=== PATIENT | female | born 1950 | race Two or more races ===

== ENCOUNTER 2024-10-16 13:06 | Outpatient (AMB) | payer MEDICARE, SELFPAY ==
--- NOTE | 2024-10-16 13:07 | A.OFFPC_ITS ---
Vital Signs 10/16/24 13:11 Height 5 ft 2.99 in Weight 150 lb BMI 26.6 BP 133/62 Respiration 14 Pulse 72 Pulse Source Pulse Oximeter Temp 97.6 F Temp Source Temporal Artery Scan Pulse Oximetry (%) 97 Oxygen Delivery Method Room Air Intake Visit Reasons: establish care Policy Issue Clerk Required: No Accompanied by: Self / Same As Patient Allergies acetaminophen (From PERCOCET) Allergy (Unknown, Unverified 10/16/24 13:22) NAUSEA & VOMITING, HALLUCINATE morphine (MORPHINE) Allergy (Unknown, Unverified 10/16/24 13:22) NAUSEA & VOMITING nitroglycerin (NITROGLYCERIN) Allergy (Unknown, Unverified 10/16/24 13:22) VOMITING, vomit oxycodone (From PERCOCET) Allergy (Unknown, Unverified 10/16/24 13:22) NAUSEA & VOMITING, HALLUCINATE Sulfa (Sulfonamide Antibiotics) (SULFA (SULFONAMIDE ANTIBIOTICS)) Allergy (Unknown, Unverified 10/16/24 13:22) RASH sulfa Allergy (Mild, Uncoded 10/16/24 13:22) Unknown Medication List - Last Reconciled 10/16/24 by Bianka Terrazas PA-C aspirin 81 mg PO DAILY buspirone 10 mg PO ONCE carvedilol 3.125 mg PO BID desvenlafaxine succinate ER 50 mg PO DAILY levothyroxine (Synthroid) 50 mcg PO DAILY omeprazole 40 mg PO BID ranolazine ER 500 mg PO BID rosuvastatin 20 mg PO DAILY sertraline 100 mg PO DAILY Tobacco use date assessed: 10/16/24 Fall risk assessment: No Falls in past year Last assessed Fall Risk: 10/16/24 Dental Screening Dental Screen Date: 10/16/24 Did you have a dental visit in the last 12 months?: Yes Did you have a dental problem in the last 6 months where you did not have access to dental care?: No Was dental information given to patient?: Patient has dentist HPI establish care HPI Details The patient is a 74-year-old female presenting for a new patient appointment to establish care and address multiple health concerns, including cardiovascular, dermatological, gastrointestinal, and anxiety issues. The patient has a history of cardiovascular issues, including a heart stent placement in 2011. She reports experiencing intermittent chest pain, which she attributes to her heart condition, and is seeking a referral to a veterinary virus serum inspector. Although denies any active chest pain at this time. Also reports intermittent episodes of palpitations/feeling like her heart is racing and sweating at nighttime. She spoke to her prior primary care in [place] about this and she reported that she believes it was her thyroid therefore she placed her on levothyroxine although patient is still having symptoms. The patient has a history of skin cancer on her face and is seeking a referral to a protection mgr for further evaluation and management. The patient reports gastrointestinal symptoms, including abdominal and esophageal pain, and suspects it might be related to acid reflux. She is seeking a referral to a president/gm production & live experiences for further evaluation and management, including a potential endoscopy and colonoscopy. The patient experiences anxiety, which she manages with medication, including buspirone and desvenlafaxine. She reports that anxiety exacerbates her cardiovascular symptoms, causing her heart to race. The patient has been prescribed levothyroxine for a thyroid disorder, following blood work that indicated low thyroid levels. [facility] Medical History Thyroid disorder Anxiety Intermittent chest pain Skin lesions Abdominal pain Intermittent palpitations Establishing care with new doctor, encounter for Family History Father BP (high blood pressure) Mother BP (high blood pressure) CHF (congestive heart failure) Social History Housing: Apartment Alcohol intake: current Alcohol intake frequency: does not drink Patient Tobacco Use Status: Former Tobacco user service: No Current occupational status: unemployed Cognitive needs: No Hearing needs: Yes (b/l hearing aids) Vision needs: Yes (rx glasses) Questionnaire PHQ-9 Over the last 2 weeks, how often have you been bothered by any of the following problems? 1. Little interest or pleasure in doing things: not at all 2. Feeling down, depressed, or hopeless: not at all 3. Trouble falling or staying asleep, or sleeping too much: not at all 4. Feeling tired or having little energy: not at all 5. Poor appetite or overeating: not at all 6. Feeling bad about yourself - or that you are a failure or have let yourself or your family down: not at all 7. Trouble concentrating on things, such as reading the newspaper or watching television: not at all 8. Moving or speaking so slowly that other people could have noticed. Or the opposite - being so fidgety or restless that you have been moving around a lot more than usual: not at all 9. Thoughts that you would be better off or of hurting yourself in some way: not at all Total score: 0 Depression Screening Interpretation: Negative Depression Screening Done: Yes 94724 - PHQ-9 Billing: Yes Source: Developed by Drs. Ricky Romero, Estrella Jj, Contreras Wang and colleagues, with an educational linh from [employer]. Thrive Questionnaire Date Thrive assessed: 10/16/24 I am a: Patient What is your living situation today?: I have a steady place to live Within the past 12 months, did the food you bought not last and you didn't have the money to get more?: Never true Within the past 12 months, did you worry whether your food would run out before you got money to buy more?: Never true Do you have trouble paying for medicines?: No Do you have trouble getting transportation to medical appointments?: No Do you have trouble paying your heating and electricity bill?: No Do you have trouble taking care of your child, family member or friend?: No Do you have trouble with day-to-day activities such as bathing, preparing meals, shopping, managing finances, etc.?: No Are you currently unemployed and looking for a job?: No Are you interested in more education?: No Please select the resources that you would like help with: None THRIVE Score: 0 AUDIT C Alcohol Use Questionnaire (AUDIT-C) 1. How often do you have a drink containing alcohol?: Never 3. How often do you have six or more drinks on one occasion?: Never Total Score: 0 Score Reviewed/Action Taken: No HERRERA-7 AMB Questionnaire HERRERA-7 Date HERRERA - 7 assessed: 10/16/24 Feeling nervous, anxious, or on edge: 3 = Nearly every day Not being able to stop or control worryin = Nearly every day Worrying too much about different things: 3 = Nearly every day Trouble relaxin = Not at all Being so restless that it is hard to sit still: 2 = More than half the days Becoming easily annoyed or irritable: 0 = Not at all Feeling afraid as if something awful might happen: 2 = More than half the days Total HERRERA-7 score (0-4 normal; 5-9 mild; 10-14 moderate; 15-21 severe): 13 Source: Developed by Drs. Ricky Romero, Estrella Jj, Contreras Wang and colleagues, with an educational linh from [employer]. HERRERA-7 Assessment Billing HERRERA-7 Assessment Tool: HERRERA-7 Assessment 77159 Review of Systems Const Details: - Cardiovascular: Reports chest pain, heart racing. Denies syncope. - Gastrointestinal: Reports abdominal and esophageal pain. Denies nausea or vomiting. - Dermatological: Reports history of skin cancer on face. - Psychiatric: Reports anxiety. Denies depression. Physical exam (Primary Care) Vital Signs: Last Vital Signs Temp 97.6 F 10/16/24 13:11 Pulse 72 10/16/24 13:11 Resp 14 10/16/24 13:11 BP 133/62 10/16/24 13:11 Pulse Ox 97 10/16/24 13:11 Oxygen Delivery Method Room Air 10/16/24 13:11 Care Plan Goal for BP management: <140/90 at Goal BMI result Body Mass Index 26.6 BMI Assessment/Plan discussion: High BMI High, discussed plan: lifestyle, weight reduction, dietary, physical activity and alcohol moderation Tobacco/Smoking Status: Tobacco use Status Tobacco use date assessed 10/16/24 10/16/24 13:11 Patient Tobacco Use Status Former Tobacco user 10/16/24 13:20 PHQ-9: PHQ-9 Score PHQ-9: Total score 0 10/16/24 13:20 Depression Screening Interpretation: Negative Thrive Assessment: Date of Thrive Assessment Date Thrive assessed 10/16/24 10/16/24 13:11 Const Other: Appearance: Alert. Oriented X3. No acute distress. Head: Normal external exam. Normocephalic. Atraumatic. Eyes: Pupils are equal, round, and reactive to light. Extraocular movements intact. Conjunctiva and sclera normal. Eyelids normal. Throat: Pharynx normal. Uvula midline. Moist mucous membranes. Neck: Normal inspection. Neck supple. Full range of motion. Cardiovascular: Normal heart rate and rhythm. Heart sound normal. No murmurs noted. Pulses normal throughout. Respiratory: No respiratory distress. Painless inspiration. Breath sounds normal. No wheezes/rales/rhonchi noted. Chest nontender. No accessory muscle usage noted or decreased air movement noted. Abdomen: Soft and nontender. Back: Full range of motion noted. Skin: Skin warm and dry. Normal skin color. Normal skin turgor. No rashes/lacerations noted. History of skin cancer on the face. Has scattered birthmark/nevi in multiple locations of the body. Extremities: No lower extremity edema. Extremities exhibit normal range of motion. Neuro: Oriented X 3. No motor deficit. No sensory deficit. Reflexes normal. Coding Level of Care Code New Pt Level 5 (85112) Complex EM visit Add On G2211 Diagnoses Establishing care with new doctor, encounter for Z76.89 Intermittent chest pain R07.9 Intermittent palpitations R00.2 Skin lesions L98.9 Abdominal pain R10.9 Anxiety F41.9 Thyroid disorder E07.9 Additional Codes PHQ-9 - 80809 - PHQ-9 Billing: Yes ([id number]) HERRERA-7 Assessment Billing - HERREAR-7 Assessment Tool: HERRERA-7 Assessment 45449 ([id number]) Time Spent (min) 60 Assessment & Plan Assessment & Plan (1) Establishing care with new doctor, encounter for: Code(s): Z76.89 - Persons encountering health services in other specified circumstances Category: Medical (2) Intermittent chest pain: Code(s): R07.9 - Chest pain, unspecified Category: Medical Plan: The patient will be referred to a veterinary virus serum inspector for further evaluation of her cardiovascular condition, including her history of heart stent placement and current intermittent chest pain. Patient is instructed to go to the emergency department if she continues to have chest pain even if it is intermittent I explained this to her, or any other symptoms related to this. Will also order basic labs, chest x-ray, EKG, Holter monitor, stress test and echocardiogram. Condition is stable at this time and patient denies any active chest pain at this time will continue to monitor. (3) Intermittent palpitations: Code(s): R00.2 - Palpitations Category: Medical Plan: The patient will be referred to a veterinary virus serum inspector for further evaluation of her cardiovascular condition, including her history of heart stent placement and current intermittent chest pain. Patient is instructed to go to the emergency department if she continues to have chest pain even if it is intermittent I explained this to her, or any other symptoms related to this. Will also order basic labs, chest x-ray, EKG, Holter monitor, stress test and echocardiogram. Condition is stable at this time and patient denies any active chest pain at this time will continue to monitor. (4) Skin lesions: Code(s): L98.9 - Disorder of the skin and subcutaneous tissue, unspecified Category: Medical Plan: The patient will be referred to a protection mgr for evaluation and management of her history of skin cancer on the face. (5) Abdominal pain: Code(s): R10.9 - Unspecified abdominal pain Category: Medical Plan: Patient reports intermittent abdominal pain. Requesting referral to GI. Referral to GI placed at this time. Patient instructed to go to the ER if she develops persistent or worsening abdominal pain or any other symptoms related to this. Patient understands and agrees with this plan. (6) Anxiety: Code(s): F41.9 - Anxiety disorder, unspecified Category: Medical Plan: The patient will continue her current medication regimen for anxiety, including buspirone and desvenlafaxine, and monitor for any exacerbation of symptoms. Condition is chronic and stable will continue to monitor. (7) Thyroid disorder: Code(s): E07.9 - Disorder of thyroid, unspecified Category: Medical Plan: The patient will continue on levothyroxine for her thyroid disorder, with follow-up blood work to monitor thyroid levels. Plan Plan Patient was informed and verbally consented to the use of an ambient scribe for clinic note documentation during this visit. 1. Cardiovascular Condition The patient will be referred to a veterinary virus serum inspector for further evaluation of her cardiovascular condition, including her history of heart stent placement and current chest pain. 2. Dermatological Condition The patient will be referred to a protection mgr for evaluation and management of her history of skin cancer on the face. 3. Gastrointestinal Symptoms The patient will be referred to a president/gm production & live experiences for further evaluation of her abdominal and esophageal pain, with consideration for endoscopy and colonoscopy. 4. Anxiety The patient will continue her current medication regimen for anxiety, including buspirone and desvenlafaxine, and monitor for any exacerbation of symptoms. 5. Thyroid Disorder The patient will continue on levothyroxine for her thyroid disorder, with follow-up blood work to monitor thyroid levels. I discussed with the patient the need for referrals to specialists for her cardiovascular, dermatological, and gastrointestinal concerns. We talked about the importance of managing her anxiety and thyroid disorder with her current medications. I advised her on the potential need for further diagnostic evaluations, including endoscopy and colonoscopy, and emphasized the importance of follow-up care. I spent approximately 60 minutes on this encounter including history, physical, coordination of care, counseling, referrals, and documenting. Orders: Orders Hemoglobin A1c Today Z00.00 - Encounter for general adult medical examination without abnormal findings Liver Panel Today Z.00 - Encounter for general adult medical examination without abnormal findings Magnesium Today Z.00 - Encounter for general adult medical examination without abnormal findings Vitamin B12 and Folate Today Z.00 - Encounter for general adult medical examination without abnormal findings TSH reflex Free T4 Today Z00.00 - Encounter for general adult medical examination without abnormal findings ECG 12 lead EKG Today R00.2 - Palpitations CA echo transthoracic complete Today R00.2 - Palpitations, R07.9 - Chest pain, unspecified CA stress test Today R00.2 - Palpitations, R07.9 - Chest pain, unspecified ECG 3 day holter monitor Today R00.2 - Palpitations, R07.9 - Chest pain, unspecified C Reactive Protein Today Z00.00 - Encounter for general adult medical examination without abnormal findings Complete Blood Count Auto Diff Today Z00.00 - Encounter for general adult medical examination without abnormal findings Vitamin D 25-OH Total Today Z00.00 - Encounter for general adult medical examination without abnormal findings Comprehensive Met. Panel Today Z00.00 - Encounter for general adult medical examination without abnormal findings NM cardiolite stress test Today R00.2 - Palpitations, R07.9 - Chest pain, unspecified XR chest 2V Today R00.2 - Palpitations, R07.9 - Chest pain, unspecified Referrals Gastroenterology Referral R10.9 - Unspecified abdominal pain Dermatology Referral L98.9 - Disorder of the skin and subcutaneous tissue, unspecified Patient Instructions: - Follow up with referred specialists for cardiovascular, dermatological, and gastrointestinal evaluations. - Continue current medications for anxiety and thyroid disorder as prescribed. - Monitor for any new or worsening symptoms and report them to the healthcare provider.
--- OUTSIDE RECORDS SUMMARY | 2024-10-16 13:10 | XMS_ITS | Patient Health Record ---
Author Organization [facility] - [address] Address [address] [place] [address] Care Team Providers Care Auditing Manager Name Role Phone Higinio CUMMINGS, Dr. Torres Primary Care Provider VIC Real Unavailable [phone] Allergies Allergen (clinical drug ingredient) Drug/Non Drug Allergy documented on EMR Reaction Allergy Type Onset Date Status Substance with sulfonamide structure and antibacterial mechanism of action (substance) Sulfa (uncoded) Rash Allergy Active nitroglycerin nitroglycerin N & V Drug Allergy Active acetaminophen / oxycodone Percocet N & V Drug Allergy Active morphine Morphine N & V Drug Allergy Active Reason For Referral No Information Medications Medication SIG (Take, Route, Frequency, Duration) Notes Start Date End Date Status Rosuvastatin Calcium 10 MG 1 tablet Oral ly Once a day Active Pantoprazole Sodium 40 MG 1 tablet Orall y Once a day for 30 day(s) Unknown Aspirin 81 MG 1 tablet Orally Once a day Active Metoprolol Succinate ER 25 MG 1 tablet Orally Once a day/additional tablet if needed for palpitations - HR >110 Active Escitalopram Oxalate 20 MG 1 tablet Oral ly Once a day for 30 day(s) Unknown Social History Tobacco Use: Social History Observation Description Date Details (start date - stop date) Former Smoker NA - NA Tobacco Use/Smoking Question Answer Notes Are you a former smoker How long has it been since you last smoked? > 10 years Alcohol Screen (Audit-C) Question Answer Notes Did you have a drink containing alcohol in the p ast year? No Points 0 Interpretation Negative Problems Problem Type SNOMED Code ICD Code Onset Dates Problem Status W/U Status Risk Notes Problem Supraventricular tachycardia (I47.1) Active confirmed Problem Electrocardiogram abnormal (709946644) Abnormal EKG (R94.31) Active confirmed Problem Essential hypertension (72129499) Essential (primary) hypertension (I10) Active confirmed [facility] [place]- Problem Palpitations (21055411) Palpitations (R00.2) Active confirmed [facility] 7667- Problem 11614729 Paroxysmal supraventricular tachycardia (I47.1) Active confirmed [facility] 7667- Problem 32394843 Hyperlipidemia (E78.5) Active confirmed [facility] 7667- Problem 00177625 Paroxysmal ventricular tachycardia (I47.2) Active confirmed [facility] 7667- Problem 302649635 Atherosclerosis of coronary artery (I25.10) Active confirmed [facility] 7667- Problem Tachycardia (0546634) Tachycardia, unspecified (R00.0) Problem resolved confirmed [facility] 7667- Problem Chest pain (06869826) Chest Pain Unspecified (786.50) Problem resolved confirmed [facility] 7667- Plan Of Treatment No Information Insurance Providers Payer Name Payer Address Payer Phone Subscriber Number Group Number Insured Name Patient Relationship to Insured Coverage Start Date Coverage End Date [facility] [address] [address] [place], [place] [phone] [id number] Dora Barraza Self - patient is the insured Medical (General) History Medical History History ICD Code kidney stones Rt. Wrist sinus tachycardia chest pain angina (unstable) anxiety CAD GERD hyperlipidemia childhood illnesses of mumps, measles an d chickenpox palpitations hypertension-benign Surgical History Surgery Date(Month/Year) cholecystectomy Successful PTCA of the Prox. LAD IVET red ucing stenosis from 80%-0 08/16/11 Hospitalization History Reason Date(Month/Year) [facility] - angina 05/14/20
--- OUTSIDE RECORDS SUMMARY | 2024-10-16 13:10 | XMS_ITS | Patient Health Record ---
Author Organization [facility] Address [address] [place] [id number] Care Team Providers Care Mental Health Aide Name Role Phone Pako (RETIRED) Ricky MONTALVO Primary Care Provid er Unavailable David Agarwal Jr Unavailable Allergies Allergen (clinical drug ingredient) Drug/Non Drug Allergy documented on EMR Reaction Allergy Type Onset Date Status Sulfa Unknown Drug Allergy Active acetaminophen / oxycodone percocet (uncoded) Unknown Allergy Active morphine morphine (uncoded) Unknown Allergy A ctive Reason For Referral No Information Medications Medication SIG (Take, Route, Frequency, Duration) Notes Start Date End Date Status Ondansetron HCl 4 MG 1 tablet as needed Orally every 4 hrs 01/17/2018 Active Dicyclomine HCl 20 MG 1 tablet Orally 2- 4 times a day Active Pantoprazole Sodium 40 MG 1 tablet Orall y Once a day for 30 days Active Pantoprazole Sodium 40 MG 1 tablet Orall y Once a day for 30 day(s) 02/19/2018 Active Carafate 1 GM/10ML 10 ml Orally 2-4 ayo es daily for 30 day(s) 01/11/2018 Active Sertraline HCl 50 MG 1 tablet Orally Onc e a day Active Ativan 0.5 MG Orally Active Pantoprazole Sodium 40 MG 1 tablet Orall y Twice a day for 30 day(s) 01/11/2017 Not-Taking Dicyclomine HCl Acti ve Aspirin 81 MG 1 tablet Orally Once a day Active Rosuvastatin Calcium Active Cimetidine 400 MG 1 tablet at bedtime Orally Once a day for 30 Active Metoprolol Tartrate 50 MG 1 tablet with food Orally Twice a day Active Pantoprazole Sodium 40 MG 1 tablet Orall y Once a day Not-Taking Immunizations Vaccine Route Administration Date Status Comme nts Influenza Unknown 01/11/2017 Administered Social History Tobacco Use: Social History Observation Description Date Details (start date - stop date) Former Smoker NA - NA Tobacco Use/Smoking Question Answer Notes Patient is a former smoker How long has it been since you last smoked? > 10 years Alcohol Screen Question Answer Notes Did you have a drink containing alcohol in the p ast year? No Points 0 Interpretation Negative Section Notes: former smoker over 31 years former smoker over 31 years Problems Problem Type SNOMED Code ICD Code Onset Dates Problem Status W/U Status Risk Notes Problem 58406315 Epigastric pain (R10.13) Active confirmed Problem 46640248 Weight loss (R63.4) Active confirmed Problem 47377360 Diarrhea, unspecified type (R19.7) Active confirmed Plan Of Treatment Pending Test Test Name Order Date LIVER PROFILE 01/14/2018 LIPASE 01/14/2018 CBC w/o DIFF 01/14/2018 STOOL WBC 02/15/2017 OVA & PARASITES (O&P) 02/15/2017 CULTURE, STOOL 02/15/2017 XR GI SERIES 01/14/2018 Future Test Test Name Order Date UPPER GI ENDOSCOPY 01/11/2017 Insurance Providers Payer Name Payer Address Payer Phone Subscriber Number Group Number Insured Name Patient Relationship to Insured Coverage Start Date Coverage End Date [facility] [address] [place], [place] [id number] NEO WANG Self - patient is the insured Medical (General) History Medical History History ICD Code kidney stones right and left removed -19 80's coronary artery disease and stent placem ent 2013 colonoscopy within 10 years in [place], records to be obtained. Surgical History Surgery Date(Month/Year) cholecystectomy appendectomy for carcinoid
[2024-10-16 13:11] VITALS: BP 133/62; PULSE 72; RESP 14; TEMP 36.4; O2SAT 97; BMI 26.6
--- OUTSIDE RECORDS SUMMARY | 2024-10-16 13:11 | XMS_ITS | Data Portability ---
Author Organization [facility] Address [address] [place] [address] Assessment No assessment recorded. Plan of Treatment Reminders Order Date Submit Date Provider Last Modified By Organization Details Last Modified Time Details Appointments None recorded. Lab PTH (parathyroi d hormone), intact, serum or plasma 2024 025 ANGELA [facility], [address] [place], [address], 5 13:37:17 Mycobacteri um tuberculosi s stimulated gamma interferon, qual, blood 2024 025 ANGELA [facility], [address] [place], [address], 5 03:09:40 thyroid peroxidase (tpo) Ab, serum 2024 025 ANGELA [facility], [address] [place], [address], 5 03:09:45 thyroglobul in Ab, serum 2024 025 ANGELA [facility], [address] [place], [address], 5 03:09:44 CMP, serum or plasma 2023 025 ANGELA [facility], [address] [place], [address], 5 03:06:38 alkaline phosphatase isoenzymes, serum or plasma 2023 025 ANGELA [facility], [address] [place] [facility] [place], [address], 5 03:06:40 gamma-gluta myl transferase (ggt), serum 2023 025 ANGELA [facility], [address] [place], [address], 5 03:06:41 HbA1c (hemoglobin A1c), blood 2023 025 ANGELA [facility], [address] [place], [address], 5 03:06:41 urinalysis complete, reflex culture 2024 025 ANGELA [facility], [address] [place], [address], 5 03:06:38 lipid panel, serum 2023 025 ANGELA [facility], [address] [facility] [place], [address], 5 03:06:39 TSH + free T4, serum 2023 025 ANGELA [facility], [address] [place] [facility] [place], [address], 5 03:06:37 amylase + lipase, serum 2023 024 ANGELA [facility], [address] [place] [facility] [place], [address], 4 08:14:25 C reactive protein, QN, serum or plasma 2023 024 ANGELA [facility], [address] [place] [facility] [place], [address], 4 08:14:27 CMP, serum or plasma 2023 024 ANGELA [facility], [address] [place], [address], 4 08:14:24 CBC w/ auto diff 2023 024 ANGELA [facility], [address] [facility], [address], 4 08:14:23 ESR (erythrocyt e sedimentati on rate), blood 2023 024 ANGELA [facility], [address] [facility], [address], 4 08:14:26 HbA1c (hemoglobin A1c), blood 2022 024 ANGELA [facility], [address] [place] [facility] [place], [address], 4 03:06:53 microalbumi n/creatinin e, mass ratio, urine 2022 024 ANGELA [facility], [address] [place] [facility] [place], [address], 4 03:06:51 CBC w/ auto diff 2022 024 ANGELA [facility], [address] [place] [facility] [place], [address], 4 03:06:49 CMP, serum or plasma 2022 024 ANGELA [facility], [address] [place] [facility] [place], [address], 4 03:06:50 lipid panel, serum 2022 024 ANGELA [facility], [address] [place] [facility] [place], [address], 4 03:06:51 vitamin B12 + folate, serum or blood 2022 024 ANGELA [facility], [address] [place], [address], 03:06:52 Referral None recorded. Procedures None recorded. Surgeries None recorded. Imaging XR, abdomen - CPT: 49936; 73yo WF w/ upper/lower abdominal pain and diarrhea x10 days. 2023 024 [facility], [address] [place], [address], 17:03:35 Medication Orders levothyroxi ne 50 mcg tablet 2024 [facility] #[id number], [address] [place], [place], [id number], 13:59:29 diphenoxyla te-atropine 2.5 mg-0.025 mg tablet 2023 025 [facility] #38130, [address] [place], [place], [id number], 13:57:00 sucralfate 1 gram tablet 2023 025 [facility] #20948, [address] [place], [place], [id number], 13:57:29 omeprazole 40 mg capsule,del ayed release 2023 [facility] [address] [place], [place], [id number], 16:38:31 sertraline 100 mg tablet 2023 024 [facility] #28375, [address] [place], [place], [id number], 16:11:45 desvenlafax ine ER 50 mg tablet,exte nded release 24 hr 2023 [facility] #39858, [address], [id number], 4 16:11:46 ranolazine ER 500 mg tablet,exte nded release,12 hr 2023 024 [facility] #02034, [address] [place], [id number], 4 16:11:45 rosuvastati n 20 mg tablet 2023 [facility] #25536, [address] [place], [place], [id number], 4 16:11:44 buspirone 5 mg tablet 2023 [facility] #25975, [address] [place], [place], [id number], 4 16:11:44 Patient TargetsNo targets recorded. Patient Instructions Encounter Date Encounter Id Patient Instructions Last Modified By Organization Details Last Modified Time 04/01/2024 [id number] We discussed the following important areas of your health at today's visit: 1. Any concerns about balance and falls. 2. Any concerns about bladder control including leaking of urine. 3. Any concerns about getting adequate exercise and physical activity. Supportive programs and services are available to help you develop and maintain healthy habits in these areas. Please visit [email or web address] for a listing of available resources. If you have any further questions or concerns regarding the above areas of your health, please discuss at your next primary care visit or, for more urgent concerns, call us at [address] [place] [address] ([phone]) to schedule an appointment. [email or web address] Not available 03/27/2024 09:36:14 04/11/2024 [id number] We discussed the following important areas of your health at today's visit: 1. Any concerns about balance and falls. 2. Any concerns about bladder control including leaking of urine. 3. Any concerns about getting adequate exercise and physical activity. Supportive programs and services are available to help you develop and maintain healthy habits in these areas. Please visit [email or web address] for a listing of available resources. If you have any further questions or concerns regarding the above areas of your health, please discuss at your next primary care visit or, for more urgent concerns, call us at [address] [place] [address] ([phone]) to schedule an appointment. Not available 04/10/2024 20:01:26 07/17/2024 [id number] We discussed the following important areas of your health at today's visit: 1. Any concerns about balance and falls. 2. Any concerns about bladder control including leaking of urine. 3. Any concerns about getting adequate exercise and physical activity. Supportive programs and services are available to help you develop and maintain healthy habits in these areas. Please visit [email or web address] for a listing of available resources. If you have any further questions or concerns regarding the above areas of your health, please discuss at your next primary care visit or, for more urgent concerns, call us at [address] [place] [address] ([phone]) to schedule an appointment. [email or web address] Not available 07/04/2024 12:15:47 Reason for Referral None Reported. Results Created Date Observation Date Name Description Value Unit Range Abnormal Flag Note LastModifiedBy Organization Detail LastModifiedTime 03/12/2003/12/2024 rapid SARS CoV + SARS CoV 2 Ag, QL IA, respi rator y speci men rapid SARS CoV 2 Ag, QL IA, respiratory specimen negati ve Not Available [facility] [address] [place], [address], 03/12/2024 11:52:40 03/12/2003/12/2024 rapid flu (A+B) Flu negati ve Not Available [facility] [address] [place], [address], 03/12/2024 11:52:39 03/26/20 24 03/26/2024 CBC WITH DIFFE RENTI AL/PL ATELE T WBC 7.1 x10e3 /uL 3.4-10 .8 normal Not Available [facility] ([facility]) [address] [place], [address], 03/28/2024 03:06:49 03/26/20 24 03/26/2024 CBC WITH DIFFE RENTI AL/PL ATELE T RBC 4.58 x10e6 /uL 3.77-5 .28 normal Not Available [facility] ([facility]) [address] [place], [address], 03/28/2024 03:06:49 03/26/20 24 03/26/2024 CBC WITH DIFFE RENTI AL/PL ATELE T hemoglobin 12.8 g/dL 11.1-1 5.9 normal Not Available [facility] ([facility]) [address] [place], [address], 03/28/2024 03:06:49 03/26/20 24 03/26/2024 CBC WITH DIFFE RENTI AL/PL ATELE T hematocrit 40.3 % 34.0-4 6.6 normal Not Available [facility] ([facility]) [address] [place], [address], 03/28/2024 03:06:49 03/26/20 24 03/26/2024 CBC WITH DIFFE RENTI AL/PL ATELE T MCV 88 fL 79-97 normal Not Available [facility] ([facility]) [address] [place], [address], 03/28/2024 03:06:49 03/26/20 24 03/26/2024 CBC WITH DIFFE RENTI AL/PL ATELE T MCH 27.9 pg 26.6-3 3.0 normal Not Available [facility] ([facility]) [address] [place], [address], 03/28/2024 03:06:49 03/26/20 24 03/26/2024 CBC WITH DIFFE RENTI AL/PL ATELE T MCHC 31.8 g/dL 31.5-3 5.7 normal Not Available [facility] ([facility]) [address] [facility], [place], [address], 03/28/2024 03:06:49 03/26/20 24 03/26/2024 CBC WITH DIFFE RENTI AL/PL ATELE T RDW 12.9 % 11.7-1 5.4 Not Available [facility] ([facility]) [address] [facility], [place], [address], 03/28/2024 03:06:49 03/26/20 24 03/26/2024 CBC WITH DIFFE RENTI AL/PL ATELE T platelets 251 x10e3 /uL 150-45 0 normal Not Available [facility] ([facility]) [address] [facility], [place], [address], 03/28/2024 03:06:49 03/26/20 24 03/26/2024 CBC WITH DIFFE RENTI AL/PL ATELE T neutrophils 57 % not estab. normal Not Available [facility] ([facility]) [address] [facility], [place], [address], 03/28/2024 03:06:49 03/26/20 24 03/26/2024 CBC WITH DIFFE RENTI AL/PL ATELE T lymphs 24 % not estab. normal Not Available [facility] ([facility]) [address] [facility], [place], [address], 03/28/2024 03:06:49 03/26/20 24 03/26/2024 CBC WITH DIFFE RENTI AL/PL ATELE T monocytes 9 % not estab. normal Not Available [facility] ([facility]) [address] [place] [address], [place], [address], 03/28/2024 03:06:49 03/26/20 24 03/26/2024 CBC WITH DIFFE RENTI AL/PL ATELE T eos 9 % not estab. normal Not Available [facility] ([facility]) [address] [facility], [place], [address], 03/28/2024 03:06:49 03/26/20 24 03/26/2024 CBC WITH DIFFE RENTI AL/PL ATELE T basos 1 % not estab. normal Not Available [facility] ([facility]) [address] [facility], [place], [address], 03/28/2024 03:06:49 03/26/20 24 03/26/2024 CBC WITH DIFFE RENTI AL/PL ATELE T immature cells TIP STRETCHER Not Available [facility] ([facility]) [address] [place], [address], 03/28/2024 03:06:49 03/26/20 24 03/26/2024 CBC WITH DIFFE RENTI AL/PL ATELE T neutrophils (absolute) 4.0 x10e3 /uL 1.4-7. 0 normal Not Available [facility] ([facility]) [address] [place], [address], 03/28/2024 03:06:49 03/26/20 24 03/26/2024 CBC WITH DIFFE RENTI AL/PL ATELE T lymphs (absolute) 1.7 x10e3 /uL 0.7-3. 1 normal Not Available [facility] ([facility]) [address] [place], [address], 03/28/2024 03:06:49 03/26/20 24 03/26/2024 CBC WITH DIFFE RENTI AL/PL ATELE T monocytes(ab solute) 0.6 x10e3 /uL 0.1-0. 9 normal Not Available [facility] ([facility]) [address] [place], [address], 03/28/2024 03:06:49 03/26/20 24 03/26/2024 CBC WITH DIFFE RENTI AL/PL ATELE T eos (absolute) 0.6 x10e3 /uL 0.0-0. 4 above high normal Not Available [facility] ([facility]) [address] [facility], [place], [address], 03/28/2024 03:06:49 03/26/20 24 03/26/2024 CBC WITH DIFFE RENTI AL/PL ATELE T baso (absolute) 0.1 x10e3 /uL 0.0-0. 2 normal Not Available [facility] ([facility]) [address] [facility], [place], [address], 03/28/2024 03:06:49 03/26/20 24 03/26/2024 CBC WITH DIFFE RENTI AL/PL ATELE T immature granulocytes 0 % not estab. Not Available [facility] ([facility]) [address] [facility], [place], [address], 03/28/2024 03:06:49 03/26/20 24 03/26/2024 CBC WITH DIFFE RENTI AL/PL ATELE T immature grans (abs) 0.0 x10e3 /uL 0.0-0. 1 Not Available [facility] ([facility]) [address] [place], [address], 03/28/2024 03:06:49 03/26/20 24 03/26/2024 CBC WITH DIFFE RENTI AL/PL ATELE T NRBC TIP STRETCHER Not Available [facility] ([facility]) [address] [place], [address], 03/28/2024 03:06:49 03/26/20 24 03/26/2024 CBC WITH DIFFE RENTI AL/PL ATELE T hematology comments: TIP STRETCHER Not Available [facility] ([facility]) [address] [place], [address], 03/28/2024 03:06:49 03/26/20 24 03/27/2024 COMP. METAB OLIC PANEL (14) glucose 96 mg/dL 70-99 normal Not Available [facility] ([facility]) [address] [facility] [place], [address], 03/28/2024 03:06:50 03/26/20 24 03/27/2024 COMP. METAB OLIC PANEL (14) BUN 13 mg/dL 8-27 normal Not Available [facility] ([facility]) [address] [facility] [place], [address], 03/28/2024 03:06:50 03/26/20 24 03/27/2024 COMP. METAB OLIC PANEL (14) creatinine 0.88 mg/dL 0.57-1 .00 normal Not Available [facility] ([facility]) [address] [facility] [place], [address], 03/28/2024 03:06:50 03/26/20 24 03/27/2024 COMP. METAB OLIC PANEL (14) eGFR 70 mL/mi n/1.7 3 >59 normal Not Available [facility] ([facility]) [address] [facility] [place], [address], 03/28/2024 03:06:50 03/26/20 24 03/27/2024 COMP. METAB OLIC PANEL (14) BUN/creatini ne ratio 15 12-28 normal Not Available [facility] ([facility]) [address] [place], [address], 03/28/2024 03:06:50 03/26/20 24 03/27/2024 COMP. METAB OLIC PANEL (14) sodium 142 mmol/ L 134-14 4 normal Not Available [facility] ([facility]) [address] [facility] [place], [address], 03/28/2024 03:06:50 03/26/20 24 03/27/2024 COMP. METAB OLIC PANEL (14) potassium 4.1 mmol/ L 3.5-5. 2 normal Not Available [facility] ([facility]) [address] [place], [address], 03/28/2024 03:06:50 03/26/20 24 03/27/2024 COMP. METAB OLIC PANEL (14) chloride 105 mmol/ L 96-106 normal Not Available [facility] ([facility]) [address] [place], [address], 03/28/2024 03:06:50 03/26/20 24 03/27/2024 COMP. METAB OLIC PANEL (14) carbon dioxide, total 22 mmol/ L 20-29 normal Not Available [facility] ([facility]) [address] [place], [address], 03/28/2024 03:06:50 03/26/20 24 03/27/2024 COMP. METAB OLIC PANEL (14) calcium 9.3 mg/dL 8.7-10 .3 normal Not Available [facility] ([facility]) [address] [place], [address], 03/28/2024 03:06:50 03/26/20 24 03/27/2024 COMP. METAB OLIC PANEL (14) protein, total 6.6 g/dL 6.0-8. 5 normal Not Available [facility] ([facility]) [address] [place], [address], 03/28/2024 03:06:50 03/26/20 24 03/27/2024 COMP. METAB OLIC PANEL (14) albumin 4.6 g/dL 3.8-4. 8 normal Not Available [facility] ([facility]) [address] [place], [address], 03/28/2024 03:06:50 03/26/20 24 03/27/2024 COMP. METAB OLIC PANEL (14) globulin, total 2.0 g/dL 1.5-4. 5 Not Available [facility] ([facility]) [address] [place], [address], 03/28/2024 03:06:50 03/26/20 24 03/27/2024 COMP. METAB OLIC PANEL (14) bilirubin, total 0.6 mg/dL 0.0-1. 2 normal Not Available [facility] ([facility]) [address] [facility], [place], [address], 03/28/2024 03:06:50 03/26/20 24 03/27/2024 COMP. METAB OLIC PANEL (14) alkaline phosphatase 144 IU/L 44-121 above high normal Not Available [facility] ([facility]) [address] [facility] [place], [address], 03/28/2024 03:06:50 03/26/20 24 03/27/2024 COMP. METAB OLIC PANEL (14) AST (SGOT) 20 IU/L 0-40 normal Not Available [facility] ([facility]) [address] [place], [address], 03/28/2024 03:06:50 03/26/20 24 03/27/2024 COMP. METAB OLIC PANEL (14) ALT (SGPT) 18 IU/L 0-32 normal Not Available [facility] ([facility]) [address] [facility], [place], [address], 03/28/2024 03:06:50 03/26/20 24 03/27/2024 LIPID PANEL cholesterol, total 176 mg/dL 100-19 9 normal Not Available [facility] ([facility]) [address] [place], [address], 03/28/2024 03:06:51 03/26/20 24 03/27/2024 LIPID PANEL triglyceride s 113 mg/dL 0-149 normal Not Available [facility] ([facility]) [address] [place], [address], 03/28/2024 03:06:51 03/26/20 24 03/27/2024 LIPID PANEL HDL cholesterol 61 mg/dL >39 normal Not Available [facility] ([facility]) [address] [facility], [place], [address], 03/28/2024 03:06:51 03/26/20 24 03/27/2024 LIPID PANEL VLDL cholesterol tess 20 mg/dL 5-40 Not Available [facility] ([facility]) [address] [facility], [place], [address], 03/28/2024 03:06:51 03/26/20 24 03/27/2024 LIPID PANEL LDL chol calc ([facility]) 95 mg/dL 0-99 Not Available [facility]) [address] [facility], [place], [address], 03/28/2024 03:06:51 03/26/20 24 03/27/2024 LIPID PANEL LDL calc comment: TIP STRETCHER Not Available [facility] ([facility]) [address] [facility], [place], [address], 03/28/2024 03:06:51 03/26/20 24 03/27/2024 ALBUM IN/CR EAT RATIO , RANDO M UR creatinine, urine 92.1 mg/dL not estab. normal Not Available [facility] ([facility]) [address] [facility], [place], [address], 03/28/2024 03:06:51 03/26/20 24 03/27/2024 ALBUM IN/CR EAT RATIO , RANDO M UR albumin, urine 10.5 ug/mL not estab. Not Available [facility] ([facility]) [address] [place], [address], 03/28/2024 03:06:51 03/26/20 24 03/27/2024 ALBUM IN/CR EAT RATIO , RANDO M UR alb/creat ratio 11 mg/g_ creat 0-29 Avril l: 0 - 29 Moder ately incre ased: 30 - 300 Sever lauren incre ased: >300 Not Available [facility] ([facility]) [address] [facility] [place], [address], 03/28/2024 03:06:51 03/26/20 24 03/27/2024 VITAM IN B12 AND FOLAT E vitamin B12 429 pg/mL 232-12 45 normal Not Available [facility] ([facility]) [address] [facility] [place], [address], 03/28/2024 03:06:52 03/26/20 24 03/27/2024 VITAM IN B12 AND FOLAT E folate (folic acid), serum >20.0 NG/mL >3.0 A serum folat e jil ntrat ion of less than 3.1 ng/mL is consi dered to repre sent clini tess defic iency . Not Available [facility] ([facility]) [address] [place], [address], 03/28/2024 03:06:52 03/26/20 24 03/27/2024 HEMOG LOBIN A1C hemoglobin A1C 5.8 % 4.8-5. 6 above high normal Predi abete s: 5.7 - 6.4 Diabe joby: >6.4 Glyce alberto contr ol for adult s with diabe joby: <7.0 Not Available [facility] ([facility]) [address] [place], [address], 03/28/2024 03:06:53 03/26/20 24 03/28/2024 ALK PHOS ISOEN ZYME alkaline phosphatase 145 IU/L 44-121 above high normal Not Available [facility] ([facility]) [address] [place], [address], 04/09/2024 03:06:31 03/26/20 24 04/08/2024 ALK PHOS ISOEN ZYME liver fraction: 42 % 18-85 Not Available [facility] ([facility]) [address] [place], [address], 04/09/2024 03:06:31 03/26/20 24 04/08/2024 ALK PHOS ISOEN ZYME bone fraction: 38 % 14-68 Not Available [facility] ([facility]) [address] [facility], [place], [address], 04/09/2024 03:06:31 03/26/20 24 04/08/2024 ALK PHOS ISOEN ZYME intestinal frac.: 20 % 0-18 above high normal Intes tinal alkal ine phosp hatas e is seen avril lly in the serum of subje cts who have B or O blood types , espec ially after a fatty meal. Patho logic ally the band may be prese nt in perfo ratio n of the bowel , ulcer ative disea se of the intes lucas and faint ly in liver cirrh osis. Acute infar ction of the intes lucas will cause a relea se of intes tinal ALP from the mucos a. Large erosi ve or ulcer ative lesio ns of the stoma ch, duode num or other small intes tinal areas , or colon may resul t in an eleva tion of the serum ALP level . The small intes tinal lesio ns assoc iated with malab sorpt ion are assoc iated with an eleva tion of the serum intes tinal ALP level only if there is an erosi ve or ulcer ative mucos al lesio n. Not Available [facility] ([facility]) [address] [facility], [place], [address], 04/09/2024 03:06:31 04/11/20 24 04/12/2024 CBC WITH DIFFE RENTI AL/PL ATELE T WBC 6.4 x10e3 /uL 3.4-10 .8 normal Not Available [facility] ([facility]) [address] [facility], [place], [address], 04/12/2024 08:14:23 04/11/20 24 04/12/2024 CBC WITH DIFFE RENTI AL/PL ATELE T RBC 4.10 x10e6 /uL 3.77-5 .28 normal Not Available [facility] ([facility]) [address] [facility], [place], [address], 04/12/2024 08:14:23 04/11/20 24 04/12/2024 CBC WITH DIFFE RENTI AL/PL ATELE T hemoglobin 11.4 g/dL 11.1-1 5.9 normal Not Available [facility] ([facility]) [address] [facility], [place], [address], 04/12/2024 08:14:23 04/11/20 24 04/12/2024 CBC WITH DIFFE RENTI AL/PL ATELE T hematocrit 35.3 % 34.0-4 6.6 normal Not Available [facility] ([facility]) [address] [facility], [place], [address], 04/12/2024 08:14:23 04/11/20 24 04/12/2024 CBC WITH DIFFE RENTI AL/PL ATELE T MCV 86 fL 79-97 normal Not Available [facility] ([facility]) [address] [place], [address], 04/12/2024 08:14:23 04/11/20 24 04/12/2024 CBC WITH DIFFE RENTI AL/PL ATELE T MCH 27.8 pg 26.6-3 3.0 normal Not Available [facility] ([facility]) [address] [place], [address], 04/12/2024 08:14:23 04/11/20 24 04/12/2024 CBC WITH DIFFE RENTI AL/PL ATELE T MCHC 32.3 g/dL 31.5-3 5.7 normal Not Available [facility] ([facility]) [address] [place], [address], 04/12/2024 08:14:23 04/11/20 24 04/12/2024 CBC WITH DIFFE RENTI AL/PL ATELE T RDW 13.0 % 11.7-1 5.4 Not Available [facility] ([facility]) [address] [facility], [place], [address], 04/12/2024 08:14:23 04/11/20 24 04/12/2024 CBC WITH DIFFE RENTI AL/PL ATELE T platelets 179 x10e3 /uL 150-45 0 normal Not Available [facility] ([facility]) [address] [facility], [place], [address], 04/12/2024 08:14:23 04/11/20 24 04/12/2024 CBC WITH DIFFE RENTI AL/PL ATELE T neutrophils 62 % not estab. normal Not Available [facility] ([facility]) [address] [facility], [place], [address], 04/12/2024 08:14:23 04/11/20 24 04/12/2024 CBC WITH DIFFE RENTI AL/PL ATELE T lymphs 21 % not estab. normal Not Available [facility] ([facility]) [address] [facility], [place], [address], 04/12/2024 08:14:23 04/11/20 24 04/12/2024 CBC WITH DIFFE RENTI AL/PL ATELE T monocytes 10 % not estab. normal Not Available [facility] ([facility]) [address] [facility], [place], [address], 04/12/2024 08:14:23 04/11/20 24 04/12/2024 CBC WITH DIFFE RENTI AL/PL ATELE T eos 6 % not estab. normal Not Available [facility] ([facility]) [address] [facility], [place], [address], 04/12/2024 08:14:23 04/11/20 24 04/12/2024 CBC WITH DIFFE RENTI AL/PL ATELE T basos 1 % not estab. normal Not Available [facility] ([facility]) [address] [facility], [place], [address], 04/12/2024 08:14:23 04/11/20 24 04/12/2024 CBC WITH DIFFE RENTI AL/PL ATELE T immature cells TIP STRETCHER Not Available [facility] ([facility]) [address] [facility], [place], [address], 04/12/2024 08:14:23 04/11/20 24 04/12/2024 CBC WITH DIFFE RENTI AL/PL ATELE T neutrophils (absolute) 4.0 x10e3 /uL 1.4-7. 0 normal Not Available [facility] ([facility]) [address] [place], [address], 04/12/2024 08:14:23 04/11/20 24 04/12/2024 CBC WITH DIFFE RENTI AL/PL ATELE T lymphs (absolute) 1.4 x10e3 /uL 0.7-3. 1 normal Not Available [facility] ([facility]) [address] [place], [address], 04/12/2024 08:14:23 04/11/20 24 04/12/2024 CBC WITH DIFFE RENTI AL/PL ATELE T monocytes(ab solute) 0.6 x10e3 /uL 0.1-0. 9 normal Not Available [facility] ([facility]) [address] [place], [address], 04/12/2024 08:14:23 04/11/20 24 04/12/2024 CBC WITH DIFFE RENTI AL/PL ATELE T eos (absolute) 0.4 x10e3 /uL 0.0-0. 4 normal Not Available [facility] ([facility]) [address] [place], [address], 04/12/2024 08:14:23 04/11/20 24 04/12/2024 CBC WITH DIFFE RENTI AL/PL ATELE T baso (absolute) 0.1 x10e3 /uL 0.0-0. 2 normal Not Available [facility] ([facility]) [address] [facility], [place], [address], 04/12/2024 08:14:23 04/11/20 24 04/12/2024 CBC WITH DIFFE RENTI AL/PL ATELE T immature granulocytes 0 % not estab. Not Available [facility] ([facility]) [address] [facility], [place], [address], 04/12/2024 08:14:23 04/11/20 24 04/12/2024 CBC WITH DIFFE RENTI AL/PL ATELE T immature grans (abs) 0.0 x10e3 /uL 0.0-0. 1 Not Available [facility] ([facility]) [address] [facility], [place], [address], 04/12/2024 08:14:23 04/11/20 24 04/12/2024 CBC WITH DIFFE RENTI AL/PL ATELE T NRBC TIP STRETCHER Not Available [facility] ([facility]) [address] [facility], [place], [address], 04/12/2024 08:14:23 04/11/20 24 04/12/2024 CBC WITH DIFFE RENTI AL/PL ATELE T hematology comments: TIP STRETCHER Not Available [facility] ([facility]) [address] [facility], [place], [address], 04/12/2024 08:14:23 04/11/20 24 04/12/2024 COMP. METAB OLIC PANEL (14) glucose 91 mg/dL 70-99 normal Not Available [facility] ([facility]) [address] [facility], [place], [address], 04/12/2024 08:14:24 04/11/20 24 04/12/2024 COMP. METAB OLIC PANEL (14) BUN 12 mg/dL 8-27 normal Not Available [facility] ([facility]) [address] [facility], [place], [address], 04/12/2024 08:14:24 04/11/20 24 04/12/2024 COMP. METAB OLIC PANEL (14) creatinine 0.73 mg/dL 0.57-1 .00 normal Not Available [facility] ([facility]) [address] [facility], [place], [address], 04/12/2024 08:14:24 04/11/20 24 04/12/2024 COMP. METAB OLIC PANEL (14) eGFR 87 mL/mi n/1.7 3 >59 normal Not Available [facility] ([facility]) [address] [facility], [place], [address], 04/12/2024 08:14:24 04/11/20 24 04/12/2024 COMP. METAB OLIC PANEL (14) BUN/creatini ne ratio 16 -28 normal Not Available [facility] ([facility]) [address] [facility], [place], [address], 04/12/2024 08:14:24 04/11/20 24 04/12/2024 COMP. METAB OLIC PANEL (14) sodium 141 mmol/ L 134-14 4 normal Not Available [facility] ([facility]) [address] [facility], [place], [address], 04/12/2024 08:14:24 04/11/20 24 04/12/2024 COMP. METAB OLIC PANEL (14) potassium 3.4 mmol/ L 3.5-5. 2 below low normal Not Available [facility] ([facility]) [address] [facility], [place], [address], 04/12/2024 08:14:24 04/11/20 24 04/12/2024 COMP. METAB OLIC PANEL (14) chloride 104 mmol/ L 96-106 normal Not Available [facility] ([facility]) [address] [facility], [place], [address], 04/12/2024 08:14:24 04/11/20 24 04/12/2024 COMP. METAB OLIC PANEL (14) carbon dioxide, total 23 mmol/ L 20-29 normal Not Available [facility] ([facility]) [address] [facility] [place], [address], 04/12/2024 08:14:24 04/11/20 24 04/12/2024 COMP. METAB OLIC PANEL (14) calcium 9.0 mg/dL 8.7-10 .3 normal Not Available [facility] ([facility]) [address] [facility] [place], [address], 04/12/2024 08:14:24 04/11/20 24 04/12/2024 COMP. METAB OLIC PANEL (14) protein, total 6.1 g/dL 6.0-8. 5 normal Not Available [facility] ([facility]) [address] [facility] [place], [address], 04/12/2024 08:14:24 04/11/20 24 04/12/2024 COMP. METAB OLIC PANEL (14) albumin 4.3 g/dL 3.8-4. 8 normal Not Available [facility] ([facility]) [address] [facility] [place], [address], 04/12/2024 08:14:24 04/11/20 24 04/12/2024 COMP. METAB OLIC PANEL (14) globulin, total 1.8 g/dL 1.5-4. 5 Not Available [facility] ([facility]) [address] [facility] [place], [address], 04/12/2024 08:14:24 04/11/20 24 04/12/2024 COMP. METAB OLIC PANEL (14) bilirubin, total 0.7 mg/dL 0.0-1. 2 normal Not Available [facility] ([facility]) [address] [facility] [place], [address], 04/12/2024 08:14:24 04/11/20 24 04/12/2024 COMP. METAB OLIC PANEL (14) alkaline phosphatase 134 IU/L 44-121 above high normal Not Available [facility] ([facility]) [address] [facility] [place], [address], 04/12/2024 08:14:24 04/11/20 24 04/12/2024 COMP. METAB OLIC PANEL (14) AST (SGOT) 20 IU/L 0-40 normal Not Available [facility] ([facility]) [address] [facility] [place], [address], 04/12/2024 08:14:24 04/11/20 24 04/12/2024 COMP. METAB OLIC PANEL (14) ALT (SGPT) 17 IU/L 0-32 normal Not Available [facility] ([facility]) [address] [facility] [place], [address], 04/12/2024 08:14:24 04/11/20 24 04/12/2024 MATHEW+L IPASE amylase 35 U/L 31-110 normal Not Available [facility] ([facility]) [address] [facility] [place], [address], 04/12/2024 08:14:25 04/11/20 24 04/12/2024 MATHEW+L IPASE lipase 11 U/L 14-85 below low normal Not Available [facility] ([facility]) [address] [facility] [place], [address], 04/12/2024 08:14:25 04/11/20 24 04/12/2024 SEDIM ENTAT ION RATE- WESTE RGREN sedimentatio n rate-westerg ema 22 mm/HR 0-40 normal Not Available [facility] ([facility]) [address] [facility] [place], [address], 04/12/2024 08:14:26 04/11/20 24 04/12/2024 C-MARY ALICE CTIVE PROTE IN, QUANT C-reactive protein, quant 5 mg/L 0-10 normal Not Available [facility] ([facility]) [address] [facility] [place], [address], 04/12/2024 08:14:26 06/26/1906/26/2024 TSH+F REE T4 TSH 3.230 uIU/m L 0.450- 4.500 normal Not Available [facility] ([facility]) [address] [facility] [place], [address], 06/30/2024 03:06:37 06/26/19 25 06/26/2024 TSH+F REE T4 T4,free(dire ct) 0.79 NG/dL 0.82-1 .77 below low normal Not Available [facility] ([facility]) [address] [facility] [place], [address], 06/30/2024 03:06:37 06/26/19 25 06/26/2024 COMP. METAB OLIC PANEL (14) glucose 94 mg/dL 70-99 normal Not Available [facility] ([facility]) [address] [facility] [place], [address], 06/30/2024 03:06:38 06/26/1906/26/2024 COMP. METAB OLIC PANEL (14) BUN 11 mg/dL 8-27 normal Not Available [facility] ([facility]) [address] [place], [address], 06/30/2024 03:06:38 06/26/19 25 06/26/2024 COMP. METAB OLIC PANEL (14) creatinine 0.87 mg/dL 0.57-1 .00 normal Not Available [facility] ([facility]) [address] [facility] [place], [address], 06/30/2024 03:06:38 06/26/19 25 06/26/2024 COMP. METAB OLIC PANEL (14) eGFR 70 mL/mi n/1.7 3 >59 normal Not Available [facility] ([facility]) [address] [place], [address], 06/30/2024 03:06:38 06/26/19 25 06/26/2024 COMP. METAB OLIC PANEL (14) BUN/creatini ne ratio 13 12-28 normal Not Available [facility] ([facility]) [address] [facility] [place], [address], 06/30/2024 03:06:38 06/26/19 25 06/26/2024 COMP. METAB OLIC PANEL (14) sodium 141 mmol/ L 134-14 4 normal Not Available [facility] ([facility]) [address] [facility] [place], [address], 06/30/2024 03:06:38 06/26/19 25 06/26/2024 COMP. METAB OLIC PANEL (14) potassium 4.0 mmol/ L 3.5-5. 2 normal Not Available [facility] ([facility]) [address] [facility] [place], [address], 06/30/2024 03:06:38 06/26/19 25 06/26/2024 COMP. METAB OLIC PANEL (14) chloride 104 mmol/ L 96-106 normal Not Available [facility] ([facility]) [address] [place], [address], 06/30/2024 03:06:38 06/26/19 25 06/26/2024 COMP. METAB OLIC PANEL (14) carbon dioxide, total 23 mmol/ L 20-29 normal Not Available [facility] ([facility]) [address] [place], [address], 06/30/2024 03:06:38 06/26/19 25 06/26/2024 COMP. METAB OLIC PANEL (14) calcium 9.0 mg/dL 8.7-10 .3 normal Not Available [facility] ([facility]) [address] [place], [address], 06/30/2024 03:06:38 06/26/19 25 06/26/2024 COMP. METAB OLIC PANEL (14) protein, total 6.3 g/dL 6.0-8. 5 normal Not Available [facility] ([facility]) [address] [facility] [place], [address], 06/30/2024 03:06:38 06/26/19 25 06/26/2024 COMP. METAB OLIC PANEL (14) albumin 4.2 g/dL 3.8-4. 8 normal Not Available [facility] ([facility]) [address] [facility] [place], [address], 06/30/2024 03:06:38 06/26/19 25 06/26/2024 COMP. METAB OLIC PANEL (14) globulin, total 2.1 g/dL 1.5-4. 5 Not Available [facility] ([facility]) [address] [facility] [place], [address], 06/30/2024 03:06:38 06/26/19 25 06/26/2024 COMP. METAB OLIC PANEL (14) bilirubin, total 0.5 mg/dL 0.0-1. 2 normal Not Available [facility] ([facility]) [address] [place], [address], 06/30/2024 03:06:38 06/26/19 25 06/26/2024 COMP. METAB OLIC PANEL (14) alkaline phosphatase 133 IU/L 44-121 above high normal Not Available [facility] ([facility]) [address] [place], [address], 06/30/2024 03:06:38 06/26/19 25 06/26/2024 COMP. METAB OLIC PANEL (14) AST (SGOT) 20 IU/L 0-40 normal Not Available [facility] ([facility]) [address] [place], [address], 06/30/2024 03:06:38 06/26/19 25 06/26/2024 COMP. METAB OLIC PANEL (14) ALT (SGPT) 12 IU/L 0-32 normal Not Available [facility] ([facility]) [address] [facility], [place], [address], 06/30/2024 03:06:38 06/26/19 25 06/26/2024 UA/M W/RFL X CULTU RE, ROUTI NE specific gravity 1.015 1.005- 1.030 normal Not Available [facility] ([facility]) [address] [facility], [place], [address], 06/30/2024 03:06:38 06/26/1906/26/2024 UA/M W/RFL X CULTU RE, ROUTI NE pH 6.5 5.0-7. 5 normal Not Available [facility] ([facility]) [address] [facility], [place], [address], 06/30/2024 03:06:38 06/26/19 25 06/26/2024 UA/M W/RFL X CULTU RE, ROUTI NE urine-color YELLOW yellow Not Available [facility] ([facility]) [address] [facility], [place], [address], 06/30/2024 03:06:38 06/26/19 25 06/26/2024 UA/M W/RFL X CULTU RE, ROUTI NE appearance CLEAR clear Not Available [facility] ([facility]) [address] [facility], [place], [address], 06/30/2024 03:06:38 06/26/19 25 06/26/2024 UA/M W/RFL X CULTU RE, ROUTI NE WBC esterase 1+ negati ve abnormal Not Available [facility] ([facility]) [address] [facility], [place], [address], 06/30/2024 03:06:38 06/26/19 25 06/26/2024 UA/M W/RFL X CULTU RE, ROUTI NE protein TRACE negati ve/tra ce Not Available [facility] ([facility]) [address] [facility], [place], [address], 06/30/2024 03:06:38 06/26/19 25 06/26/2024 UA/M W/RFL X CULTU RE, ROUTI NE glucose NEGATI VE negati ve Not Available [facility] ([facility]) [address] [facility], [place], [address], 06/30/2024 03:06:38 06/26/19 25 06/26/2024 UA/M W/RFL X CULTU RE, ROUTI NE ketones NEGATI VE negati ve Not Available [facility] ([facility]) [address] [facility], [place], [address], 06/30/2024 03:06:38 06/26/19 25 06/26/2024 UA/M W/RFL X CULTU RE, ROUTI NE occult blood TRACE negati ve abnormal Not Available [facility] ([facility]) [address] [facility], [place], [address], 06/30/2024 03:06:38 06/26/19 25 06/26/2024 UA/M W/RFL X CULTU RE, ROUTI NE bilirubin NEGATI VE negati ve Not Available [facility] ([facility]) [address] [place], [address], 06/30/2024 03:06:38 06/26/19 25 06/26/2024 UA/M W/RFL X CULTU RE, ROUTI NE urobilinogen ,semi-qn 1.0 mg/dL 0.2-1. 0 normal Not Available [facility] ([facility]) [address] [place], [address], 06/30/2024 03:06:38 06/26/19 25 06/26/2024 UA/M W/RFL X CULTU RE, ROUTI NE nitrite, urine NEGATI VE negati ve Not Available [facility] ([facility]) [address] [facility], [place], [address], 06/30/2024 03:06:38 06/26/19 25 06/26/2024 UA/M W/RFL X CULTU RE, ROUTI NE microscopic examination SEE BELOW: Micro dede deleon was indic ated and was perfo rmed. Not Available [facility] ([facility]) [address] [facility], [place], [address], 06/30/2024 03:06:38 06/26/19 25 06/26/2024 UA/M W/RFL X CULTU RE, ROUTI NE WBC NONE SEEN /hpf 0 - 5 Not Available [facility] ([facility]) [address] [facility], [place], [address], 06/30/2024 03:06:38 06/26/19 25 06/26/2024 UA/M W/RFL X CULTU RE, ROUTI NE RBC 3-10 /hpf 0 - 2 abnormal Not Available [facility] ([facility]) [address] [facility], [place], [address], 06/30/2024 03:06:38 06/26/19 25 06/26/2024 UA/M W/RFL X CULTU RE, ROUTI NE epithelial cells (non renal) 0-10 /hpf 0 - 10 Not Available [facility] ([facility]) [address] [facility], [place], [address], 06/30/2024 03:06:38 06/26/19 25 06/26/2024 UA/M W/RFL X CULTU RE, ROUTI NE epithelial cells (renal) TIP STRETCHER Not Available [facility] ([facility]) [address] [place], [address], 06/30/2024 03:06:38 06/26/19 25 06/26/2024 UA/M W/RFL X CULTU RE, ROUTI NE casts NONE SEEN /lpf none seen Not Available [facility] ([facility]) [address], [place], [address], 06/30/2024 03:06:38 06/26/19 25 06/26/2024 UA/M W/RFL X CULTU RE, ROUTI NE cast type TIP STRETCHER Not Available [facility] ([facility]) [address], [place], [address], 06/30/2024 03:06:38 06/26/19 25 06/26/2024 UA/M W/RFL X CULTU RE, ROUTI NE crystals TIP STRETCHER Not Available [facility] ([facility]) [address], [place], [address], 06/30/2024 03:06:38 06/26/19 25 06/26/2024 UA/M W/RFL X CULTU RE, ROUTI NE crystal type TIP STRETCHER Not Available [facility] ([facility]) [address] [facility], [place], [address], 06/30/2024 03:06:38 06/26/19 25 06/26/2024 UA/M W/RFL X CULTU RE, ROUTI NE mucus threads TIP STRETCHER Not Available [facility] ([facility]) [address] [facility], [place], [address], 06/30/2024 03:06:38 06/26/19 25 06/26/2024 UA/M W/RFL X CULTU RE, ROUTI NE bacteria NONE SEEN none seen/f ew Not Available [facility] ([facility]) [address] [facility], [place], [address], 06/30/2024 03:06:38 06/26/19 25 06/26/2024 UA/M W/RFL X CULTU RE, ROUTI NE yeast TIP STRETCHER Not Available [facility] ([facility]) [address] [facility], [place], [address], 06/30/2024 03:06:38 06/26/19 25 06/26/2024 UA/M W/RFL X CULTU RE, ROUTI NE trichomonas TIP STRETCHER Not Available [facility] ([facility]) [address] [facility], [place], [address], 06/30/2024 03:06:38 06/26/19 25 06/26/2024 UA/M W/RFL X CULTU RE, ROUTI NE comment TIP STRETCHER Not Available [facility] ([facility]) [address] [facility], [place], [address], 06/30/2024 03:06:38 06/26/19 25 06/26/2024 UA/M W/RFL X CULTU RE, ROUTI NE microscopic examination TIP STRETCHER Not Available [facility] ([facility]) [address] [facility], [place], [address], 06/30/2024 03:06:38 06/26/19 25 06/26/2024 UA/M W/RFL X CULTU RE, ROUTI NE urinalysis reflex COMMEN T This speci men has refle xed to a Urine Cultu re. Not Available [facility] ([facility]) [address] [facility], [place], [address], 06/30/2024 03:06:38 06/26/19 25 06/27/2024 UA/M W/RFL X CULTU RE, ROUTI NE urine culture, routine FINAL REPORT Not Available [facility] ([facility]) [address] [place], [address], 06/30/2024 03:06:38 06/26/19 25 06/27/2024 UA/M W/RFL X CULTU RE, ROUTI NE result 1 COMMEN T Mixed uroge nital ephraim 10,00 0-25, 000 colon y formi ng units per mL Not Available [facility] ([facility]) [address] [place], [address], 06/30/2024 03:06:38 06/26/19 25 06/26/2024 LIPID PANEL cholesterol, total 146 mg/dL 100-19 9 normal Not Available [facility] ([facility]) [address] [place], [address], 06/30/2024 03:06:39 06/26/19 25 06/26/2024 LIPID PANEL triglyceride s 108 mg/dL 0-149 normal Not Available [facility] ([facility]) [address] [place], [address], 06/30/2024 03:06:39 06/26/19 25 06/26/2024 LIPID PANEL HDL cholesterol 51 mg/dL >39 normal Not Available [facility] ([facility]) [address] [place], [address], 06/30/2024 03:06:39 06/26/19 25 06/26/2024 LIPID PANEL VLDL cholesterol tess 20 mg/dL 5-40 Not Available [facility] ([facility]) [address] [place], [address], 06/30/2024 03:06:39 06/26/19 25 06/26/2024 LIPID PANEL LDL chol calc ([facility]) 75 mg/dL 0-99 Not Available [facility] ([facility]) [address] [place], [address], 06/30/2024 03:06:39 06/26/19 25 06/26/2024 LIPID PANEL LDL calc comment: TIP STRETCHER Not Available [facility] ([facility]) [address] [place], [address], 06/30/2024 03:06:39 06/26/19 25 06/29/2024 ALK PHOS ISOEN ZYME liver fraction: 40 % 18-85 Not Available [facility] ([facility]) [address] [place], [address], 06/30/2024 03:06:40 06/26/19 25 06/29/2024 ALK PHOS ISOEN ZYME bone fraction: 42 % 14-68 Not Available [facility] ([facility]) [address] [place], [address], 06/30/2024 03:06:40 06/26/19 25 06/29/2024 ALK PHOS ISOEN ZYME intestinal frac.: 18 % 0-18 Not Available [facility] ([facility]) [address] [place], [address], 06/30/2024 03:06:40 06/26/19 25 06/26/2024 HEMOG LOBIN A1C hemoglobin A1C 5.7 % 4.8-5. 6 above high normal Predi abete s: 5.7 - 6.4 Diabe joby: >6.4 Glyce alberto contr ol for adult s with diabe joby: <7.0 Not Available [facility] ([facility]) [address] [place], [address], 06/30/2024 03:06:41 06/26/19 25 06/26/2024 GGT GGT 12 IU/L 0-60 normal Not Available [facility] ([facility]) [address] [place], [address], 06/30/2024 03:06:41 06/26/19 25 07/01/2024 THYRO XINE (T4) thyroxine (T4) 5.2 ug/dL 4.5-12 .0 normal Not Available [facility] ([facility]) [address] [place], [address], 07/01/2024 05:07:12 07/18/19 25 07/18/2024 PTH, INTAC T PTH, intact 48 pg/mL 15-65 normal Not Available [facility] ([facility]) [address] [place], [address], 07/18/2024 13:37:17 07/18/19 25 07/18/2024 THYRO GLOBU XANDER ANTIB DEBBIE thyroglobuli n antibody <1.0 IU/mL 0.0-0. 9 Thyro globu xander Antib debbie measu red by Lashay Fostert er Metho dolog y It shoul d be noted that the prese nce of thyro globu xander antib odies may not be patho genic nor diagn ostic , espec ially at very low level s. The assay manuf actur er has found that four perce nt of indiv idual s witho ut evide nce of thyro id disea se or autoi mmuni ty will have posit kristin TgAb level s up to 4 IU/mL . Not Available [facility] ([facility]) [address] [place], [address], 07/19/2024 03:09:44 07/18/19 25 07/18/2024 THYRO ID PEROX IDASE (TPO) AB thyroid peroxidase (tpo) Ab 10 IU/mL 0-34 normal Not Available [facility] ([facility]) [address] [place], [address], 07/19/2024 03:09:45 07/18/19 25 07/19/2024 QUANT IFERO N-TB GOLD PLUS quantiferon incubation INCUBA TION PERFOR MED. Not Available [facility] ([facility]) [address] [place], [address], 07/23/2024 03:09:40 07/18/19 25 07/19/2024 QUANT IFERO N-TB GOLD PLUS quantiferon criteria COMMEN T Quant iFERO N-TB Gold Plus is a quali tativ e indir ect test for M tuber culos is infec tion (incl uding disea se) and is inten ded for use in conju nctio n with risk asses sment , radio graph y, and other medic al and diagn ostic evalu ation s. The Quant iFERO N-TB Gold Plus resul t is deter mined by subtr actin g the Nil value from eithe r TB antig en (Ag) value . The Mitog en tube serve s as a contr ol for the test. Not Available [facility] ([facility]) [address] [place], [address], 07/23/2024 03:09:40 07/18/19 25 07/22/2024 QUANT IFERO N-TB GOLD PLUS quantiferon TB1 Ag value 0.15 IU/mL Not Available [facility] ([facility]) [address] [place], [address], 07/23/2024 03:09:40 07/18/19 25 07/22/2024 QUANT IFERO N-TB GOLD PLUS quantiferon TB2 Ag value 0.11 IU/mL Not Available [facility] ([facility]) [address] [place], [address], 07/23/2024 03:09:40 07/18/19 25 07/22/2024 QUANT IFERO N-TB GOLD PLUS quantiferon nil value 0.14 IU/mL Not Available [facility] ([facility]) [address] [place], [address], 07/23/2024 03:09:40 07/18/19 25 07/22/2024 QUANT IFERO N-TB GOLD PLUS quantiferon mitogen value >10.00 IU/mL Not Available [facility] ([facility]) [address] [place], [address], 07/23/2024 03:09:40 07/18/1907/22/2024 QUANT IFERO N-TB GOLD PLUS quantiferon- TB gold plus NEGATI VE negati ve No respo nse to M tuber dexteros is antig ens detec shan. Infec tion with M tuber dexteros is is unlik lauren, but high risk indiv idual s shoul d be consi dered for addit ional testi ng (ATS/ IDSA/ CDC Clini tess Pract ice Guide lines , 2017) . The refer ence range is an Antig en minus Nil resul t of <0.35 IU/mL . Chemi lumin escen ce immun oassa y metho dolog y Not Available [facility] ([facility]) [address], [place], [address], 07/23/2024 03:09:40 03/31/20 24 03/31/2024 MAMMO , scree whitney, tomos ynthe sis, bilat eral, w/ CAD No observ ation record ed. [facility] ([place], [place]) [facility] [address], [place], [address], 04/01/2024 10:16:52 04/11/20 24 04/11/2024 XR, abdom en No observ ation record ed. [facility], [facility] [address] [place], [address], 04/12/2024 15:17:23 04/15/20 24 04/15/2024 CT, abdom en + pelvi s, w/ contr ast No observ ation record ed. [facility] (Medical Records) [facility] [address] [address] [facility], [place], [address], 04/15/2024 20:19:14 05/01/19 25 04/15/2024 elect yeimi awad am No observ ation record ed. Not Available 2024 16:13:21 Result Notes None recorded. Problems Name Problem SNOMED Code Status Onset Date Resolution Date Notes Provider Name and Address Organization Details Recorded Time Cardiac catheter ization Completed 202005/21/2020 Candace Ribera PA-C [address] [place], [address] , [facility] 1 15:37:54 Gastroes ophageal reflux disease 282884077 Active 2020 w/ gastriti s Not Available [facility] 3 01:34:02 Anxiety 81311067 Active 2020 since July when daughter went missing Radha Soriano MD [address] [place], [address] , [place] [facility] 4 15:39:42 Depressi ve disorder 75874204 Completed 201608/31/2023 life stressor s, more sad now then depresse d Radha Soriano MD [address] [place] [address], [address] , [place] [facility] 4 10:17:44 Hyperlip idemia 92316173 Active 2020 Not Available [facility] 3 01:34:03 Hyperten sive disorder 42339333 Completed 202005/21/2020 Radha Soriano MD [address] [place] [address], [address] , [place] [facility] 3 12:34:41 Coronary arterios clerosis 28540518 Active 2020 w/ angina when highly stressed /anxious Not Available [facility] 3 01:34:03 History of calculus of kidney 076181197 Completed 202005/21/2020 Radha Soriano MD [address] [place] [address], [address] , [place] [facility] 4 15:43:21 History of thyroid disorder 360761952 Completed 202012/28/2021 Radha Soriano MD [address] [place] [address], [address] , [place] [facility] 2 13:22:46 Bradycar jorge l 62347745 Completed 202004/01/2024 Removal Reason: resolved Radha Soriano MD [address] [place] [address], [address] , [place] [facility] 4 15:42:25 Intermit tent palpitat ions 888082524 Active 2020 Not Available [facility] 3 01:34:02 Insomnia 718003523 Active 2020 Not Available [facility] 3 01:34:02 Hyperten sive disorder 26052476 Completed 202007/19/2020 Radha Soriano MD [address] [place] [address], [address] , [facility] - [facility] 3 12:34:41 Supraven tricular tachycar jorge l 4260980 Active 2020 quiet on BB Not Available [facility] 3 01:34:03 Decrease d hearing 220659071 Completed 202004/01/2024 B hearing aids Radha Soriano MD [address] [place] [address], [address] , [facility] 4 15:46:28 History of placemen t of stent for coronary artery disease 170715194 Completed 202012/28/2021 Radha Soriano MD [address] [place] [address], [address] , [facility] - [facility] 2 13:19:37 History of calculus of kidney 113904500 Active multiple in 1980s, s/p surgical extracti on Radha Soriano MD [address] [place] [address], [address] , [facility] - [facility] 4 15:43:21 Carcinoi d tumor - morpholo gy Completed 197911/06/2023 appendix Removal Reason: KHALIDA Soriano MD [address] [place] [address], [address] , [facility] - [facility] 4 21:53:28 Atherosc lerosis of aorta 53789831 Active 2020 on CXR Radha Soriano MD [address] [place] [address], [address] , [facility] 4 15:40:50 History of hyperthy roidism 395233126 Active Not Available [facility] 3 01:34:02 Sedative dependen ce 556759939 Active 2021 on melatoni n Radha Soriano MD [address] [place] [address], [address] , [facility] - [facility] 4 15:46:08 Psychoac tive substanc e dependen ce 4683592 Active 2021 on sertrali ne, desvenla faxine ER Radha Soriano MD [address] [place] [address], [address] , [facility] - [facility] 4 15:45:44 Qualitat kristin platelet disorder 454472578 Completed 202106/30/2024 on ASA, sertrali ne, desvenla faxine ER Radha Soriano MD [address] [place] [address], [address] , [facility] - [facility] 5 07:06:49 Ex-smoke r 3791513 Active 1985 1 ppd x10 years; quit 1985 Not Available [facility] 3 01:34:03 Nodule of lung 347990853 Active 2022 small TRACI calcifie d Not Available [facility] 3 01:34:03 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 357365780 Completed 202202/04/2023 Radha Soriano MD [address] [place] [address], [address] , [facility] 3 15:22:16 Atypical chest pain 572614230 Active 2022 unsure if caused by anxiety or not Radha Soriano MD [address] [place] [address], [address] , [facility] - [facility] 4 15:42:04 Hyperten sive disorder 13537649 Active 2022 Not Available [facility] 3 01:34:03 Hiatal hernia 14712433 Active 2022 Not Available [facility] 3 01:34:03 Gastriti s 0675166 Active 2022 sees GI in 04/2024 Radha Soriano MD [address] [place] [address], [address] , [place] [facility] 4 15:43:00 Hypergly cemia 97278564 Completed 202203/28/2024 Radha Soriano MD [address] [place] [address], [address] , [place] [facility] 4 08:33:26 History of non-ST segment elevatio n myocardi al infarcti on 706467519 Active 2022 Radha Soriano MD [address] [place] [address], [address] , [place] [facility] 4 10:19:27 Acute upper respirat ory infectio n 32280950 Completed 202208/26/2023 Radha Soriano MD [address] [place] [address], [address] , [place] [facility] 4 21:02:12 Acute hemorrha gic cystitis 63192183 Completed 202311/06/2023 Radha Soriano MD [address] [place] [address], [address] , [place] [facility] 4 21:55:17 Chest pain 87174520 Completed 202208/26/2023 Radha Soriano MD [address] [place] [address], [address] , [place] - [facility] 4 21:02:25 Moderate recurren t major depressi on 25564585 Active 2023 life stressor s, more sad now then depresse d Radha Soriano MD [address] [place] [address], [address] , [place] [facility] 4 10:17:37 Squamous cell carcinom a of skin 690124687 Completed 11/06/2023 L medial cheek Radha Soriano MD [address] [place] [address], [address] , [place] [facility] 4 21:56:43 Stable angina 329533647 Active 2023 [place] [address] [place] [address], [address] , [place] [facility] 4 10:19:00 Peripher al vascular disease 909534589 Active 2021 QF R severe, L normal Radha Soriano MD [address] [place] [address], [address] , [place] [facility] 4 10:23:33 History of benign carcinoi d neoplasm 37248194396 062050 Active 2017 appendix Radha Soriano MD [address] [place] [address], [address] , [facility] - [facility] 4 21:53:16 History of malignan t neoplasm of skin 368180621 Active SCC L medial cheek Radha Soriano MD [address] [place] [address], [address] , [place] [facility] 4 21:56:41 Occipita l headache 684307 Active 2023 Radha Soriano MD [address] [place] [address], [address] , [place] [facility] 4 12:01:01 Impairme nt of balance 382047943 Active 2023 eyes don't follow head turns Radha Soriano MD [address] [place] [address], [address] , [place] [facility] 4 15:44:24 Impacted cerumen of bilatera l ears 77488666193 45494 Completed 202304/01/2024 Per ENT note 12/03/23 Radha Soriano MD [address] [place] [address], [address] , [place] [facility] 4 07:30:21 Sensorin eural hearing loss of bilatera l ears 497616095 Active 2023 B hearing aids Radha Soriano MD [address] [place] [address], [address] , [place] [facility] 4 15:46:37 Lower urinary tract symptoms 409352819 Active 2023 Radha Soriano MD [address] [place] [address], [address] , [facility] - [facility] 4 15:33:37 Vaginal irritati on 732610205 Active 2023 referred to IMPLANT COORDINATOR Radha Soriano MD [address] [place] [address], [address] , [facility] - [facility] 4 15:48:01 Wilkerson' s esophagu s 901282765 Active 2023 Radha Soriano MD [address] [place] [address] , [facility] - [facility] 4 15:57:00 Pain of left breast 5138294389 Active 2023 intermit tent Radha Soriano MD [address] [place] [address] , [facility] - [facility] 4 15:45:21 Prediabe joby 489944725 Active 2023 new diagnosi s 5.8% Radha Soriano MD [address] [place] [address], [address] , [facility] - [facility] 4 08:33:47 Thyroid function tests abnormal 222026067 Active 2023 Radha Soriano MD [address] [place] [address] , [facility] - [facility] 4 07:43:30 Alkaline phosphat ase above referenc e range 151073465 Active 2023 Radha Soriano MD [address] [place] [address] , [facility] - [facility] 4 07:45:05 Upper abdomina l pain 94618193 Active 2023 Radha Soriano MD [address] [place] [address] , [facility] - [facility] 4 14:18:58 Lower abdomina l pain 30981390 Active 2023 Radha Soriano MD [address] [place], [address] , [place] [facility] 4 14:19:05 Acute diarrhea 715949378 Active 2023 Radha Soriano MD [address] [place], [address] , [place] [facility] 4 14:26:51 Urinary symptoms 829581948 Active 2024 LOBITO ELLER APRN [address] [place] [address], [address] , [place] [facility] 5 11:03:23 Night sweats 73347195 Active 2024 Radha Soriano MD [address] [place] [address], [address] , [place] [facility] 5 14:00:49 Problem Notes None recorded. Procedures Surgical History Date Name Laterality Status Provider Name and Address Organization Details Recorded Time 06/25 Phlebotomy Blood Draw completed Alejandra Horta [place] [facility] 5 09:15:27 05/06 hospital discharge med review cancelled Bree Joshizehra [place] - [facility] 5 14:53:09 03/31 Date of Last Mammogram completed Radha Soriano MD [facility] [place], [address] , [place] [facility] 4 19:20:01 03/26 Phlebotomy Blood Draw completed Perlita Salgado [place] - T [facility] 4 08:49:16 01/22 Phlebotomy Blood Draw completed Radha Mooney [place] [facility] 3 12:01:47 01/15 esophagogastroduodenoscopy completed Radha Soriano MD [facility] [place], [address] , [place] [facility] 4 16:00:18 01/01 Cryosurgery completed Candace Ribera PA-C [address] [place], [address] , [place] [facility] 3 09:27:40 12/07 hospital discharge med review completed Suzanne Umana [place] [facility] 3 10:55:52 11/06 angiography of coronary artery completed Radha Soriano MD [address] [place], [address] , [place] [facility] 3 14:48:04 08/14 hospital discharge med review completed Luis Costello [place] [facility] 3 10:46:42 12/30 PPD Read Results completed Rodrick Manuel [place] - [facility] 2 13:59:22 12/22 Phlebotomy Blood Draw completed Georgia Lacy [place] - [facility] 2 11:50:57 02/09 Cerumen Removal completed Candace Ribera PA-C [address] [place], [address] , [place] - [facility] 1 12:10:42 08/24 Cerumen Removal completed Rodrick Manuel [place] - [facility] 1 11:52:46 08/24 Phlebotomy Blood Draw completed Jesica Garza [place] - [facility] 1 09:20:46 08/02 Phlebotomy Blood Draw cancelled Jesica Garza [place] [facility] 1 14:48:04 07/19 Preventative Visit Discussed with Patient completed Carissa Adams [place] - [facility] 1 14:33:45 05/21 hospital discharge med review completed Candace Ribera PA-C [address] [place], [address] , [place] [facility] 1 16:35:46 04/16 Date of Last Colonoscopy completed MD [address]uelo [address] [place], [address] , [place] [facility] 2 13:46:42 04/16 colonoscopy [place], [address] , [place] [facility] 4 20:57:42 04/16 esophagogastroduodenoscopy [place], [address] , [place] [facility] 2 13:46:30 12/11 colonoscopy [place], [address] , [place] [facility] 4 15:30:56 04/16 percutaneous transluminal angioplasty of coronary artery using imaging guidance with contrast completed MD [facility] [place], [address] , [place] [facility] 2 13:42:33 04/16 cholecystectomy completed Carissa Adams [place] [facility] 1 15:11:26 04/16 repair of right direct inguinal hernia completed MD [facility] [place], [address] , [place] [facility] 2 13:41:40 04/16 Appendectomy completed Carissa Adams [place] [facility] 1 15:10:59 04/16 oophorectomy completed [place], [address] , [place] [facility] 2 13:42:53 ligation of bilatera l fallopian tubes completed MD [facility] [place], [address] , [facility] 2 13:43:26 Imaging Results None recorded. Procedure Notes None recorded. Medical Equipment None Reported. Allergies Allergen ID Allergen Name Allergen Category Reaction Reaction Severity Criticality Documentation Date Start Date Code Code System Note Provider Name and Address Organization Details Recorded Time 103082 sulfur dioxide medicatio n Not available Not available Not available 04/30/2020 69950 79 [facility] 15:04[facility]37 933278 morphine medicatio n Not available Not available Not available 04/30/2020 7052 RxNorm Not Available [facility] 4 18:50:13 841919 oxycodone medicatio n Not available Not available Not available 12/28/2021 7804 RxNorm Not Available [facility] 4 18:50:13 497429 fluoxetin e medicatio n Not available Not available Not available 12/07/2022 4493 RxNorm Not Available [facility] 4 18:50:13 187657 Substance with sulfonami de structure and antibacte rial mechanism of action (substanc e) medicatio n Not available Not available Not available 03/09/2023 82171 8003 SNOMED Not Available [facility] 4 18:50:13 708882 nitroglyc jocelyn medicatio n Not available Not available Not available 08/26/20232022 4917 RxNorm Not Available [facility] 4 18:50:13 Medications Name Sig Start Date Stop Date Status Note LastModified by Organization Details LastModified Time Prescript ion - Renewal 11/05 completed Not Available Not Available Not Available methocarb ivette 500 mg tablet TAKE 1 TABLET BY MOUTH EVERY 6 HOURS NEEDED FOR SPASM 02/09 completed Not Available Not Available Not Available buspirone 5 mg tablet TAKE 2 TABLETS BY MOUTH EVERY DAY IN THE EVENING FOR ANXIETY OR DEPRESSI ON active Not Available Not Available No t Available verapamil 40 mg tablet TAKE 1 TABLET BY MOUTH TWICE DAILY 12/07 completed Not Available Not Available Not Available cetirizin e 10 mg tablet TK 1 T PO QAM FOR 12 DAYS THEN PRN 12/28 completed Not Available Not Available Not Available azithromy renata 250 mg tablet TAKE 2 TABLETS (500 MG) BY ORAL ROUTE ONCE DAILY FOR 1 DAY THEN 1 TABLET (250 MG) BY ORAL ROUTE ONCE DAILY FOR 4 DAYS 04/01 completed Not Available Not Available Not Available metoprolo l succinate ER 50 mg tablet,ex tended release 24 hr TAKE 1 TABLET BY MOUTH EVERY DAY 08/07 completed Not Available Not Available Not Available fluconazo le 200 mg tablet TAKE 1 TABLET BY MOUTH ONCE A WEEK FOR 14 DAYS 12/07 completed Not Available Not Available Not Available meloxicam 15 mg tablet TAKE 1 TABLET BY MOUTH EVERY DAY 02/09 completed Not Available Not Available Not Available sucralfat e 1 gram tablet TAKE 1 TABLET BY MOUTH FOUR TIMES DAILY FOR 10 DAYS FOR ABDOMINA L PAIN 07/17 completed Not Available Not Available Not Available prednison e 20 mg tablet TAKE 1 TABLET BY MOUTH EVERY DAY FOR 5 DAYS 04/01 completed Not Available Not Available Not Available Tubersol 5 tub. unit/0.1 mL intraderm al injection solution 0.1 mL 05/21 completed [id number] Not Available Not Available Not Available sertralin e 100 mg tablet Take 1 tablet every day by oral route for 100 days, for depressi on and anxiety. 2024 active Not Available Not Available Not Avai lable diphenoxy late-atro pine 2.5 mg-0.025 mg tablet TAKE 2 TABLETS BY MOUTH FOUR TIMES DAILY FOR 10 DAYS NEEDED FOR DIARRHEA 07/17 completed Not Available Not Available Not Available acetamino phen 300 mg-codein e 30 mg tablet TAKE 1 TABLET BY MOUTH EVERY 4 TO 6 HOURS NEEDED 02/09 completed Not Available Not Available Not Available ciproflox acin 500 mg tablet TAKE 1 TABLET BY MOUTH TWICE DAILY FOR 5 DAYS FOR UTI 07/17 completed Not Available Not Available Not Available omeprazol e 40 mg capsule,d elayed release Take 1 capsule twice a day by oral route for 90 days. active Not Available Not Available No t Available triamcino lone acetonide 0.1 % topical cream APPLY THIN LAYER TOPICALL Y TO THE AFFECTED AREA TWICE DAILY 02/09 completed Not Available Not Available Not Available carvedilo l 3.125 mg tablet Take 1 tablet twice a day by oral route for 100 days. 2024 active Not Available Not Available Not Avai lable ketorolac 10 mg tablet TAKE 1 TABLET BY MOUTH EVERY 6 HOURS 02/09 completed Not Available Not Available Not Available amoxicill in 875 mg tablet TAKE 1 TABLET BY MOUTH EVERY 12 HOURS FOR 10 DAYS 05/09 completed Not Available Not Available Not Available levothyro xine 50 mcg tablet Take 1 tablet every day by oral route for 100 days, for hypothyr oidism. active Not Available Not Available No t Available pantopraz ole 40 mg tablet,de layed release TAKE 1 TABLET BY MOUTH TWICE DAILY FOR GERD 06/23 completed Not Available Not Available Not Available fluoxetin e 10 mg capsule TAKE 1 CAPSULE BY MOUTH EVERY DAY 12/07 completed Not Available Not Available Not Available nitroglyc jocelyn 0.4 mg sublingua l tablet 12/07 completed Not Available Not Available Not Available sertralin e 25 mg tablet TAKE 1 TABLET BY MOUTH EVERY DAY 01/01 completed Not Available Not Available Not Available codeine 10 mg-guaife nesin 100 mg/5 mL oral liquid TAKE 10 ML BY MOUTH EVERY 4 HOURS FOR 7 DAYS FOR BRONCHIT IS 04/01 completed Not Available Not Available Not Available metoprolo l succinate ER 25 mg tablet,ex tended release 24 hr TAKE 1/2 TABLET BY MOUTH EVERY DAY 01/01 completed Not Available Not Available Not Available ibuprofen 600 mg tablet TAKE 1 TABLET BY MOUTH EVERY 6 HOURS NEEDED 02/09 completed Not Available Not Available Not Available fluoxetin e 20 mg capsule TAKE 1 CAPSULE BY MOUTH EVERY DAY 08/07 completed Not Available Not Available Not Available fluticaso ne propionat e 50 mcg/actua tion nasal spray,juanito pension SHAKE LIQUID AND USE 1 SPRAY IN EACH NOSTRIL EVERY DAY 12/28 completed Not Available Not Available Not Available sertralin e 50 mg tablet Take 1 tablet twice a day by oral route for 100 days. 02/20 completed Not Available Not Available Not Available amoxicill in 500 mg-potass ium clavulana te 125 mg tablet TAKE 1 TABLET BY MOUTH TWICE DAILY FOR 7 DAYS FOR UTI 03/12 completed Not Available Not Available Not Available Low Dose Aspirin 81 mg tablet,de layed release Take 1 tablet every day by oral route. active Not Available Not Available No t Available escitalop kareem 10 mg tablet TAKE 1 AND 1/2 TABLETS BY MOUTH EVERY DAY 12/07 completed Not Available Not Available Not Available escitalop kareem 20 mg tablet TAKE 1 TABLET BY MOUTH EVERY DAY 12/28 completed Not Available Not Available Not Available rosuvasta tin 10 mg tablet Take 1 tablet every day by oral route for 100 days. 04/11 completed Not Available Not Available Not Available rosuvasta tin 20 mg tablet TAKE 1 TABLET BY MOUTH EVERY DAY FOR HIGH CHOLESTE ROL active Not Available Not Available No t Available mirtazapi ne 7.5 mg tablet TAKE 1 TABLET BY MOUTH ONCE DAILY AT BEDTIME FOR DEPRESSI ON AND FOR ANXIETY 03/12 completed Not Available Not Available Not Available nitrofura ntoin monohydra te/macroc rystals 100 mg capsule TAKE 1 CAPSULE BY MOUTH EVERY 12 HOURS FOR 5 DAYS 08/25 completed Not Available Not Available Not Available ranolazin e ER 500 mg tablet,ex tended release,1 2 hr TAKE 1 TABLET BY MOUTH TWICE DAILY FOR HEART DISEASE/ CHEST PAIN active Not Available Not Available No t Available desvenlaf axine succinate ER 50 mg tablet,ex tended release 24 hr Take 1 tablet every day by oral route for 90 days. active Not Available Not Available No t Available melatonin 10 mg capsule Take 1 capsule as needed by oral route. 01/24 completed Not Available Not Available Not Available desvenlaf axine ER 50 mg tablet,ex tended release 24 hr Take 1 tablet every day by oral route for 100 days, for depressi on. 2023 active Not Available Not Available Not Avai lable desvenlaf axine succinate ER 25 mg tablet,ex tended release 24 hr Take 1 tablet every day by oral route for 100 days, for depressi on and anxiety. 04/11 completed Not Available Not Available Not Available [employer] COVID-19 Ag Self Test kit Use as Directed on the Package 12/28 completed Not Available Not Available Not Available Vitals Date Recorded Body height Body mass index (BMI) Body weight Body temperature Respiratory rate Oxygen saturation Oxygen saturation in Arterial blood by Pulse oximetry Heart rate Systolic And Diastolic Provider Name and Address Organization Details Last Updated DateTime 5 160.02 cm 25.7 kg/m2 68509.8 9 g 98 [degF] 16 /min 95 % 95 % 71 /min 109/65 mm[Hg] Gail Augustin [facility] 5 13:25:59 Date Recorded Body height Body mass index (BMI) Body weight Heart rate Oxygen saturation Oxygen saturation in Arterial blood by Pulse oximetry Systolic And Diastolic Provider Name and Address Organization Details Last Updated DateTime 4 160.02 cm 26 kg/m2 83581.6 4 g 82 /min 97 % 97 % 102/64 mm[Hg] Wanda Paulakristy [facility] 4 15:28:08 Date Recorded Body height Body mass index (BMI) Body weight Body temperature Heart rate Oxygen saturation Oxygen saturation in Arterial blood by Pulse oximetry Systolic And Diastolic Provider Name and Address Organization Details Last Updated DateTime 4 160.02 cm 26 kg/m2 28111.3 6 g 97.6 [degF] 77 /min 95 % 95 % 104/66 mm[Hg] Ela Langley [facility] 4 13:52:37 Social History Question Answer Notes LastModified by Organizat ion Details LastModified Time Tobacco Smoking Status Former Smoker onset age 17; quit age 24; restart age 29, final quit age 35 Radha Soriano MD [address] [place], [address], [facility] 07/17/2024 07:08:02 Do You Have An Advance Directive? Yes (not On File) Full Code Status, No Prolonged Life Support Information not available 04/01/2024 What Is Your Level Of Caffeine Consumption? Moderate Coffee 1 Cup/day Information not available 12/28/2021 Are You A Caregiver? No Information not available 04/30/2020 What Type Of Diet Are You Following? REGULAR High In Sweets Information not available 04/01/2024 What Is The Highest Grade Or Level Of School You Have Completed Or The Highest Degree You Have Received? [id number] Information not available 12/28/2021 Have There Been Any Changes To Your Family Or Social Situation? Yes Daughter LUIS ALFREDO Since June Information not available 04/01/2024 When Did You Quit Smoking? 17+yearssinc elastcigaret te Quit 1985 1 Ppd (10 Pack-years) Information not available 07/07/2024 Advanced Directive Record Request/Date 04/01/2024 Information not available 04/01/2024 Total Number In Household 5 Information not available 04/30/2020 Where Are You From? [place] Information not available 04/30/2020 Do You Have Local Family? Yes Son X2, DIL, (daughter) Information not available 04/30/2020 [facility] In Which You Live [place], [place] Information not available 12/28/2021 Hinduism Preference Christian Information not available 12/28/2021 What Is Your Support System In The Event Of A Medical Crisis? Family Information not available 12/28/2021 Domestic Violence No Information not available 04/30/2020 Do You Have Any Financial Concerns Related To The Medications You Are Taking? No Information not available 04/30/2020 Do You Have Any Other Barriers Related To The Medications You Are Taking? No Information not available 04/30/2020 Do You Have Any Communication Barriers? None Information not available 04/30/2020 Does The Family Or Caregiver Have Any Communication Barriers? None Information not available 04/30/2020 Do You Understand The Medication You Are Taking? Yes Information not available 12/28/2021 Have You Been Hospitalized? Yes 04/15/24 ER Abdominal Pain, IBS-D 02/04/23 Hosp STEMI 11/03/22 Hosp CP 08/02/22 Hosp CP/bradycard ia Information not available 01/24/2023 [facility] What Year Did You Move Here? 2001 Information not available 04/01/2024 Do You Have A Medical Power Of Reimbursement Representative? Yes (not On File) Karla Spicer Daughter Ilene Information not available 04/01/2024 How Many Children Do You Have? 4 Information not available 04/30/2020 Do You Have Any Pets? Yes 2 Dog And Cats Information not available 01/24/2023 What Is Your Relationship Status? 1986; 2017 (x30 Years) Information not available 01/23/2023 Do You Use Your Seat Belt Or Car Seat Routinely? Yes Information not available 12/28/2021 Are You Sexually Active? No Information not available 04/30/2020 Do You Have Smoke And Carbon Monoxide Detectors In Your Home? Yes Information not available 12/28/2021 At What Age Did You Start Smoking Tobacco? 17 Information not available 12/28/2021 Are You Passively Exposed To Smoke? No Information not available 12/28/2021 How Much Tobacco Do You Smoke? No Information not available 07/07/2024 Do You Use Sunscreen Routinely? No Sees Derm Information not available 04/01/2024 Has Tobacco Cessation Counseling Been Provided? No Information not available 12/28/2021 How Many Years Have You Smoked Tobacco? 10 Information not available 04/30/2020 Have You Recently Traveled Abroad? No Information not available 04/01/2024 Sex: Unknown Functional Status Question Answer Note LastModified by Organizat ion Details LastModified Time Do you use any illicit or recreational drugs? No Information not available 12/28/2021 What is your level of alcohol consumption? 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 Yes Information not available 04/30/2020 What is your exercise level? Occasional walking 4k steps/day 3x/week or more at work Information not available 04/01/2024 Mental Status None recorded. Family History Relationship Description Onset Age of this Age Resolved Age Notes LastModified by Organization Details LastModified Time Brother Coronary arterioscler osis x3 all prior to age 60 Not available 11/06/2022 08:39:15 Brother Diabetes mellitus x2 Not available 2021 13:32:09 Brother Hypertensive disorder x3 Not available 2021 13:32:18 Brother Family history of malignant neoplasm 70 70 lung w/ mets to brain Not available 12/28/2021 13:32:51 Brother Congestive heart failure Not available 2022 13:29:31 Mother Congestive heart failure Not available 2022 13:29:24 Father Congestive heart failure Not available 2022 13:29:27 Medical History No medical history recorded. Gynecological History Statement/Question Response Number of Living Children 4 If Post Menopausal, Age at Menopause 40 Abnormal Pap N Date of Last Mammogram 03/31/2024 Date of Last Colonoscopy 04/16/2017 Most Recent Bone Density Para 4 Date of Last Pap Smear 4 Obstetrics History GPAL:G 0 P 0 0 0 0 Immunizations Vaccine Type Date Status Note Provider Nam e and Address Organization Details Recorded Time COVID-19, mRNA, LNP-S, PF, 30 mcg/0.3 mL dose 07/12/2020 completed Not Available [facility] 3 01:34:03 COVID-19, mRNA, LNP-S, PF, 30 mcg/0.3 mL dose 03/28/2021 completed Not Available [facility] 3 01:34:04 COVID-19, mRNA, LNP-S, PF, 30 mcg/0.3 mL dose 08/09/2020 completed Not Available [facility] 3 01:34:04 Past Encounters Encounter ID Performer Location Encounter Start Date Encounter Closed Date Diagnosis/Indication Diagnosis SNOMED-CT Code Diagnosis ICD10 Code Diagnosis Note [id number] Melissa Sylvester MD [facility] [address] [place] [address] 05/21/2020 15:29:51 05/21/2020 16:49:00 Medication review done 921151079 Z76.89 Please let us know if your ability to obtain or take your medication s as prescribed changes. Medication adherence, or taking medication s correctly, is generally defined as the extent to which patients take medication as prescribed by their doctors. This involves factors such as getting prescripti ons filled, rememberin g to take medication on time, and understand ing the directions . Common barriers to medication adherence include: the inability to pay for medication s, disbelief that the treatment is necessary or helping, difficulty keeping up with multiple medication s and complex dosing schedules, confusion about how and when to take the medication . Poor adherence can interfere with the ability to treat many diseases, leading to greater complicati ons from the illness and a lower quality of life for patients. Hearing examination 3981 88989 Z01.10 Patient does have decreased hearing. [facility] screening assessment 520686959 Z13.31 PHQ2 Depression Screening Assessment performed this visit. Alcohol co nsumption screening 248120130 Z13.89 Alcohol use discussed with patient. Anxiety 09924147 F41.9 Stable on current medication s. escitalopr am 20mg Depressive disorder 3548 9007 F32.9 Stable on current medication s. Gastroesop hageal reflux disease 899739349 K21.9 Stable on pantoprazo le 40 mg BID. Eat slower and smaller meals. Problemati c foods include citrus, chocolate, coffee, mint, carbonated beverages and tomato based foods. Heart disease 80272101 I 51.9 Patient will follow up with Dr. Sue. Hyperlipidemia 15511485 E78.5 Stable on rosuvastat in 10mg. High cholestero l or hyperlipid emia can be managed with lifestyle modificati on and medication . Both treatments usually need to be continued because neither cure the problem. However, if you are overweight , losing a significan t amount of weight and being aerobicall y in shape will often decrease the number and dose of medication needed for control. An LDL goal of below 130 is the basic goal for people with no increased risk for heart disease. Getting the LDL below 100 is the goal for folks with a family history of heart disease. A cutoff of 70 for LDL is the guiding number for patients with heart disease or diabetes or very high family history risk. Please work on your diet (decreased fatty meats, eggs, high fat dairy, butter, etc.) and aerobic exercise as we discussed to achieve your LDL goal (which is likely to be different from other people). Your treatment is currently stable but can be improved with increased aerobic conditioni ng and maintainin g a normal weight. Coronary arteriosclerosis 59927721 I25.10 Will follow up with Dr. Sue, Cardiology . Continue with metoprolol Kidney stone 25632678 N2 0.0 Patient has history of kidney stones. Hospital i npatient stay within past 30 days [id number] 106 Z76.89 Reviewed hospital records, patient's medical history and medication s. She is new to our clinic Intermitte nt palpitations 571672217 R00.2 Under going evaluation at this time. Insomnia 082220391 G47.0 0 History of thyroid disorder 315885091 Z86.39 Bradycardia 45670504 R00 .1 [id number] Melissa Sylvester MD [facility] [address] [place] [address] 07/19/2020 10:04:03 07/19/2020 10:52:37 Adult health examination 876184631 Z00.00 patient had adult health exam in clinic on today's date. Recommend 150 minutes of physical activity per week. Recommend patient ingest at least 5 servings of fruits and vegetables per day. Encourage patient on proper hydration. Discussed preventati ve care including colorectal screening and immunizati ons. Medication review done 378982577 Z76.89 Please let us know if your ability to obtain or take your medication s as prescribed changes. Medication adherence, or taking medication s correctly, is generally defined as the extent to which patients take medication as prescribed by their doctors. This involves factors such as getting prescripti ons filled, rememberin g to take medication on time, and understand ing the directions . Common barriers to medication adherence include: the inability to pay for medication s, disbelief that the treatment is necessary or helping, difficulty keeping up with multiple medication s and complex dosing schedules, confusion about how and when to take the medication . Poor adherence can interfere with the ability to treat many diseases, leading to greater complicati ons from the illness and a lower quality of life for patients. Risk assessment done 332 493143 Z76.89 Environmen ayad and social supports that affect a patient's needs and goals are important. Please let us know if any of the following changes: Basic ADLs are self-care activities that an individual must accomplish in order to remain self-suffi cient. These include bathing, dressing, toileting, transferri ng, maintainin g continence , and feeding. Instrument al ADLs are higher level activities that individual s must perform or have help with to remain independen t in their homes. These include using the telephone, shopping, doing housework, doing laundry, preparing meals, driving, taking medication s, and managing money. Advance di rective discussed with patient 008564679 Z71.89 Advance directives are legal documents that allow you to spell out ahead of time what types of medical care you would want if you ever became unable to speak for yourself. These documents can help ensure that you get the care you want even if you have an unexpected serious illness or accident. Advance directives work best when they are part of a team effort. If you do not currently have advanced directives on file please discuss this with your [facility]. Mental hea lth screening assessment 803490093 Z13.31 PHQ2 Depression Screening Assessment performed this visit. Alcohol co nsumption screening 980072859 Z13.89 Alcohol use discussed with patient. ETOH none Screening for malignant neoplasm of breast 058152751 Z12.39 will order screening mammo Screening for malignant neoplasm of colon 924618373 Z12.11 Dr Kyle Good to follow up up last colonscopy in 2019 Anxiety 44200217 F41.9 stable on current medication s Depressive disorder 3548 9007 F32.9 escitalopr am 20mg] stable denies SI/HI Gastroesop hageal reflux disease 177666675 K21.9 pantoprazo le 40mg stable on current dose, Hyperlipidemia 18242071 E78.5 rosuvastat in 10mg will follow up lipid panel Discussed with patient about diet/exerc ise modificati on to reduce weight. Patient understood and agreed to work on modificati ons as discussed. 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 Physical dependence upon treatment of the underlying condition develops. There is a high likelihood of developing physical withdrawal symptoms and sudden resurgence of depression symptoms with sudden cessation of the medication . Patient was advised not to stop treatment without consulting the prescriber to determine a plan to taper the Rx Continue current regimen. Supraventr icular tachycardia 2760748 I47.1 Metoprolol 25 mg for VT in her teens admitted in hospital 05/14/20--- >05/16/20 for chest discomfort / bradicardi a and weakness metoprolol dose was decreased to 25 mg daily doing good now and feeling improved History of thyroid disorder 420553862 Z86.39 had ? thyroid storm previous not currently on any medication s will follow up TSH and t4 Decreased hearing 566612 001 H91.90 unable to afford hearing aid but now with insurance change wants to check pricing will refer to audiology ear wax in right ear will do ear cleaning before the audio logy appt once they are made, History of placement of stent for coronary artery disease 161448559 Z95.5 pLAD 70-80% stenosis s/pDES 08/2011 Lexiscan 2014 EF 88% no ischemia follow up with [facility] cardiology Coronary arteriosclerosis 25955847 I25.10 as above [id number] Melissa Sylvester MD [address] [address] 08/24/2020 09:07:11 08/24/2020 14:18:38 Hyperlipidemia 63260265 E78.5 Supraventr icular tachycardia 2108775 I47.1 [id number] Melissa Sylvester MD [address] [address] 08/24/2020 11:11:21 08/24/2020 15:39:18 [id number] Home Sifuentes MD [address] [address] 11/25/2020 08:53:48 11/25/2020 09:46:22 Localized eruption of skin 151089828 R21 The pt has an erythemato us, flat rash on the medial aspect of her L ankle. The rash almost appears vascular in nature. This does not appear to be allergic. Moisturizi ng discussed with patient and will also try a steroid cream on the rash. If no improvemen t then consider a dermatolog y evaluation of the rash. The pt lacks any alarming symptoms. Pt verbalizes understand ing and is in agreement with the treatment plan discussed. Peripheral edema 0901016 00 R60.9 The pt has moderate, nonpitting edema localized on the lateral malleolus of her L ankle. The pt has mild edema in bilateral ankles. I am unsure if this has to do with her fall 4 month ago. Conservati ve measures recommende d at this time. The pt declines compressio n stockings. Elevate legs while sitting down. [id number] Melissa Sylvester MD [place] [id number] 02/09/2021 11:18:07 02/09/2021 13:10:36 Impacted cerumen of bilateral ears [id number] 491713 H61.23 Patient had small amount of cerumen in both ears. This was easily removed with lavage and patient tolerated this well. [id number] Hal Malhotrae [place] [address] 02/21/2021 10:02:03 02/21/2021 13:10:03 Benign paroxysmal positional vertigo 842922473 H81.10 Discussed anatomy of the inner ear and causes of BPPV. Discussed both Ivy maneuvers and half somersault maneuver to help with resolution of vertigo as it occurs. Patient will follow-up if this is not resolving. Qualitativ e platelet disorder 787683598 D69.1 Patient is a low aspirin daily. She has had no episodes of bleeding. Mild major depression, single episode 34404583 F32.0 She is stable on escitalopr am 20 mg daily. Atheroscle rosis of aorta 95057183 I70.0 Noted on previous x-ray. Patient is on a statin daily. [id number] Hal Malhotrae [place] [id number] 05/16/2021 13:28:21 05/16/2021 14:42:40 Plantar fasciitis of left foot 9576893111 1278219 M72.2 We reviewed various ways to help relieve the plantar fasciitis. she needs to avoid going barefoot, wearing flats or shoes without good arch support. Discussed exercises, stretches, use of ice, NSAIDS, taping techniques or even a ight slpint. She will work on this at home and it not resolving, can refer to podiatry. Impacted c erumen of bilateral ears 6112023412 832966 H61.23 Patient had very small amount of cerumen in both ears but on wall, not blocking. Lavage not needed today. Qualitativ e platelet disorder 043167681 D69.1 Patient is a low aspirin daily. She has had no episodes of bleeding. Psychoacti ve substance dependence 5287444 F19.20 FPC use of: escitalopr am. Physical dependence with this medication can develop. There is a high likelihood of developing physical withdrawal symptoms and sudden resurgence of symptoms with cessation of the medication . Should patient want to stop medication , we would form a taper plan to discontinu e the medication . Depressive disorder 4436 9007 F32.0 Stable on current medication s. Refill given. Atheroscle rosis of aorta 84437868 I70.0 Noted on previous x-ray. Patient is on a statin daily. Supraventr icular tachycardia 4955758 I47.1 This is under control on metoprolol succinate ER 50mg. Gastroesop hageal reflux disease 682486543 K21.9 Stable on pantoprazo le 40 mg BID. Eat slower and smaller meals. Problemati c foods include citrus, chocolate, coffee, mint, carbonated beverages and tomato based foods. Coronary arteriosclerosis 55188219 I25.10 Will follow up with Dr. Sue, Cardiology . Continue with metoprolol Hyperlipidemia 20754395 E78.5 Stable on rosuvastat in 10mg. High cholestero l or hyperlipid emia can be managed with lifestyle modificati on and medication . Both treatments usually need to be continued because neither cure the problem. However, if you are overweight , losing a significan t amount of weight and being aerobicall y in shape will often decrease the number and dose of medication needed for control. An LDL goal of below 130 is the basic goal for people with no increased risk for heart disease. Getting the LDL below 100 is the goal for folks with a family history of heart disease. A cutoff of 70 for LDL is the guiding number for patients with heart disease or diabetes or very high family history risk. Please work on your diet (decreased fatty meats, eggs, high fat dairy, butter, etc.) and aerobic exercise as we discussed to achieve your LDL goal (which is likely to be different from other people). Your treatment is currently stable but can be improved with increased aerobic conditiondavid landers a normal weight. [id number] Radha Soriano MD [facility] [address] [place] [address] 12/22/2021 11:27:58 12/22/2021 11:52:38 Depressive disorder 78185662 F32.0 Hyperlipidemia 69981956 E78.5 Supraventr icular tachycardia 2296382 I47.1 [id number] Jarek Rosen DPM [facility] e [address] [place] [address] 09/16/2021 11:23:47 09/16/2021 12:00:22 Plantar fasciitis of left foot 8323204746 9806574 M72.2 Patient was educated on the etiology and treatment options for their condition. Patient will continue their stretching exercises, OTC orthotics and proper shoegear. They will be diligent with their stretching , performing them twice daily. Steroid injection 1 of 3 performed today as dictated in procedure. Should their pain continue, I will recommend continued steroid injection of the fascia vs immobiliza tion vs PT referral. Patient agreeable to today's plan. [id number] Hal Calhoun DO [facility] [address] [place] [address] 08/23/2021 16:25:15 08/23/2021 16:53:35 Upper respiratory infection 74499924 J06.9 Patient requested use of antibiotic s. She understand s that this may still be viral and should resolve 10 days of start. She was negative for COVID or flu today. Reviewed home supportive care.You have a Upper Respirator y Infection. The infections are usually viral for the first two weeks of URI symptoms. Indication s that the trapped mucus has become infected with bacteria are: Sudden increase of temperatur e to 101 after 10 days of cold/sinus symptoms. Purulent Nasal discharge. Pain in teeth on one side of face. Redness and swelling around the eyes. I recommend the following Over The Counter treatments at this time: 1: Mucinex DM 600 mg. Take one tablet every 12 hours to liquefy mucous secretions . The DM portion of the medication is a cough suppressan t. It is important to drink plenty of water while taking this medication . I also recommend using a 2. Nasal Saline rinses: Use a buffered solution and rinse each side of the nose every 12 hours. This will help liquefy nasal secretions , and wash out dust and allergens. 3. Sudafed- This helps decrease the amount of mucus production , however should not be used by people with heart conditions . Get the pseudophe drine HCL type that you have to talk with the pharmacist to get, not the one on the shelf (different chemical make up). Follow directions on label. [id number] Radha Soriano MD [facility] [address] [place] [address] 12/28/2021 12:54:33 12/28/2021 14:15:08 Adult health examination 732660461 Z00.01 Reviewed history and health maintenanc e issues; updated chart. Complete physical exam performed; no unusual findings. Labs reviewed and recommenda tions given. Last Tetanus booster unknown. Last flu vaccine declines. Last Pneumovax 23 declines. Last Prevnar 13 declines. Last shingles vaccine declines Shingrix. COVID vaccine 2020 x3 Pfizer. Last colorectal cancer screening 2018. Last MMG 2014; declines. Last Pap distant past; declines. Last DEXA distant past; declines. Depression screening completed; negative. Falls risk assessment completed for patients at high risk for falls or those over the age of 65. Follow up in 1 year for routine wellness exam, or sooner if problems arise.- regular physical exercise, 5x per week for at least 30 min- keep a healthy diet: especially low fat diet and avoiding trans-fatt y acids, avoid refined carbs as much as possible including added sugar items and items with high fructose corn syrup, increase natural fibers, vegetable, eating fruits daily, change refined grains such as white starchy items and white rice to whole grains like wheat and brown rice- avoid smoking and passive smoke exposure- limit alcoholic beverages- wear seat belts at all times Medication review done 584657312 Z76.89 Please let us know if your ability to obtain or take your medication s as prescribed changes. Medication adherence, or taking medication s correctly, is generally defined as the extent to which patients take medication as prescribed by their doctors. This involves factors such as getting prescripti ons filled, rememberin g to take medication on time, and understand ing the directions . Common barriers to medication adherence include: inability to pay for medication s, disbelief that the treatment is necessary or helping, difficulty keeping up with multiple medication s and complex dosing schedules as well as confusion about how and when to take the medication . Poor adherence can interfere with the ability to treat many diseases, leading to greater complicati ons from the illness and a lower quality of life for patients. Risk assessment done 712 539953 Z76.89 [facility] ayad and social supports that effect a patient's needs and goals are important. Please let us know if any of the following changes: 1. Basic ADLs, which are self-care activities that an individual must accomplish in order to remain self sufficient . These include bathing, dressing, toileting, transferri ng, maintainin g continence , and feeding. 2. Instrument al ADLs, which are higher level activities that individual s must perform or have help with to remain independen t in their homes. These include using the telephone, shopping, doing housework, doing laundry, preparing meals, driving, taking medication s, and managing money. Advance di rective discussed with patient 478974796 Z71.89 Advance directives are legal documents that allow you to spell out ahead of time what types of medical care you would want if you ever became unable to speak for yourself. These documents can help ensure that you get the care you want even if you have an unexpected serious illness or accident. Advance directives work best when they are part of a team effort. If you do not currently have advanced directives on file please discuss this with your [facility] Team. Coronary arteriosclerosis 93565667 I25.10 Patient has known coronary artery disease, and is status post a coronary angioplast y with stent placement in 2011. She reports that she has no issues with angina unless she is highly stressed or anxious. She currently takes low-dose aspirin, a beta-block er and a statin. She is followed by Cardiology . Insomnia [id number] G47.0 0 Patient states that her insomnia is well controlled with melatonin 10 mg at bedtime. Since she also wants to make other medication changes, I advised that she would be best served by adjusting 1 medication at a time. For now, we will not make any changes to her melatonin. However, adjusting her escitalopr am may impact her sleep at various times while we are titrating down, but she is aware this. Anxiety 33743244 F41.1 Patient is taking escitalopr am 20 mg daily, and as below, she would like to try tapering off of this medication since she is doing well in general. The medication was started around 2017 after her . Will continue to monitor as we are tapering down on medication . Atheroscle rosis of aorta [id number] I70.0 Patient has been found to have atheroscle rosis of the aorta on previous imaging study of the chest. This is expected given patient's age as well as known hyperlipid emia. Will continue to maximize control of blood pressure, sugar and cholestero l levels. Bradycardia 73300394 R00 .1 Patient takes metoprolol ER 50 mg daily for her known heart disease, and as a result her heart rate is typically low. Currently she is at 60 beats per minute, but she reports that she has been as low as the low 50s during the day and even into the 40s during sleep. Since she is asymptomat ic, would not recommend any changes. 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 She is no longer followed by Oncology, although she had a normal colonoscop y in 2018. Will continue to monitor. Decreased hearing 736014 001 H91.90 Patient has hearing loss, and wears hearing aids bilaterall y. She denies any recent changes in her condition. Depressive disorder 8998 9000 F32.1 As above, patient developed depression and anxiety related to her 's in 2016. She was started on escitalopr am at that time, and has been taking 20 mg for several years. She feels ready to decrease her dose and try to come off of the medication altogether . We will plan to reduce to 15 mg daily and I will have her follow up with me via portal message or telephone to let me know how she is doing over the next few weeks. If this goes well, she is aware that we can reduce further moving forward. Will check labs in 1 year at her follow-up annual exam. Gastroesop hageal reflux disease 012142552 K21.00 Patient has esophageal reflux, and has been taking pantoprazo le 40 mg daily. Her most recent EGD in 2018 did demonstrat e gastritis as well as GERD. She would like to try transition ing this medication to an H2 jani as well given the potential risks with the medication use. For now, I would like to wait until she is off of the escitalopr am before making another change. She agrees with this, and requested a refill which was sent to the pharmacy. History of calculus of kidney [id number] Z87.442 Patient has a history of a kidney stone in the , which needed to be surgically extracted. I do not have a uric acid level on file, and her most recent urinalysis demonstrat ed blood in August of 2020. will plan to repeat the urinalysis and check a uric acid level next year. Hyperlipidemia 63444815 E78.5 Lipid panel normal on last check. Continues on moderate dose Rosuvastat in. ASCVD risk score is 7.7%; this was not previously calculated . Encouraged healthier lifestyle habit to control lipid levels and weight. Will not change current dose of medication and plan to repeat panel in 12 months and adjust regimen as indicated. Intermitte nt palpitations 815617622 R00.2 Patient reports intermitte nt palpitatio ns that are currently controlled for the most part with metoprolol ER 50 mg daily. As she is stable and followed by Cardiology , no changes are indicated. Supraventr icular tachycardia 9765340 I47.1 She has not had any further episodes of SVT despite lowering her dose of metoprolol . Cardiology had thought to refer her to EP Cardiology if her SVT recurred. Body mass index 25-29 - overweight 334370282 Z68.27 Weight down 3.4# since this time last year. Patient aware of need to continue to follow healthier dietary habits and remain active with dedicated exercise. Depression screening 171 188509 Z13.31 Negative; score 0/2. At [facility] risk for falls 621379742 Z91.81 STEADI score 3/14. Sedative dependence 1981 64008 F13.20 Patient takes a medication ( melatonin ) that can result in sleep or reduced anxiety. She agrees to take this medication as prescribed . This type of medication should not be stopped abruptly, and must be tapered to avoid withdrawal symptoms. In addition, mood might be severely affected, which should be taken into considerat ion when changing the dose of this medication or stopping it. Psychoacti ve substance dependence 0069552 F19.20 Patient continues on a psychoacti ve substance ( escitalopr am ) for mood control. This type of medication should not be stopped abruptly, and must be tapered to avoid withdrawal symptoms. In addition, mood might be severely affected, which should be taken into considerat ion when changing the dose of this medication or stopping it. No changes will be made at this time, and will continue to monitor. History of hyperthyroidism 670175914 Z86.39 Patient reports a history of hyperthyro idism, however her thyroid panel is currently normal and she is not taking any methimazol e. Chart review indicates that she has not taken this type of medication for at least the last few years. Will plan to repeat a thyroid panel in a year as she is doing well. Ex-smoker 9514432 Z87.89 1 Patient reports smoking for about 10 years overall with multiple quits and restarts between the ages of 17 in 35. She has quit over 30 years ago. Although patient is an ex smoker, she would prefer to avoid CT scanning for now. However, she does agree to a screening ultrasound for abdominal aortic aneurysm. This was ordered as requested. Hepatitis C screening 42 1760887 Z11.59 At risk age group. Will check baseline Hepatitis C level and refer for further evaluation and treatment if positive. [id number] Radha Soriano MD [address] [address] 12/28/2021 14:11:42 12/28/2021 14:32:04 Mantoux test done 932148914 Z11.1 Patient needing for her job. [id number] Radha Soriano MD [address] [address] 12/30/2021 13:56:35 12/30/2021 15:37:12 Mantoux test done 468333148 Z11.1 Results read in office today. Negative. [id number] Rahda Soriano MD [address] [address] 07/26/2022 11:14:35 07/26/2022 13:49:31 Depressive disorder 78280969 F32.1 She would like to try switching to a different SSRI. We discussed options and we decided to try stopping the escitalopr am 10 mg and switch to fluoxetine 20 mg. She will follow up in 4-6 weeks to see how she is doing. Psychoacti ve substance dependence 4894477 F19.20 Long-term use of: fluoxetine and SSRI. Physical dependence with this medication can develop. There is a high likelihood of developing physical withdrawal symptoms and sudden resurgence of symptoms with cessation of the medication . Should patient want to stop the medication , we would form a taper plan to discontinu e the medication . [id number] Radha Soriano MD [facility] [address] [place] [address] 08/14/2022 12:52:44 08/14/2022 16:40:41 Hospital inpatient stay within past 30 days [id number] 106 Z76.89 Reviewed hospital records, patient's medical history and medication s. Screening for malignant neoplasm of breast 954917861 Z12.39 Gastroesop hageal reflux disease 107386181 K21.00 Possible break through on pantoprazo le 40 mg BID. Follow up with GI. Referral placed. Eat slower and smaller meals. Problemati c foods include citrus, chocolate, coffee, mint, carbonated beverages and tomato based foods. Depressive disorder 1408 9007 F32.1 Patient will continue on fluoxetine 10 mg daily. Coronary arteriosclerosis 76366908 I25.10 She would like to find a new cardiologi st. Atypical chest pain 1025 06871 R07.89 Patient would like consult with a new cardiologi st so this referral was made for her. She had workup in the hospital which was unremarkab le. They did decrease her metoprolol from ER 50 mg daily to ER 25 mg daily. Qualitativ e platelet disorder 559305931 D69.1 Patient is taking a medication ( aspirin ) that inhibits an enzyme in platelets responsibl e for thinning out the blood by decreasing platelet activity in the blood. This causes a functional disorder of the platelets, which in turn increases the risk of bleeding and bruising. However, this risk needs to be balanced against the cardiovasc ular benefit of aspirin. We will continue to monitor this condition. Atheroscle rosis of aorta 90049453 I70.0 Patient has been found to have atheroscle rosis of the aorta on previous imaging study of the chest. This is expected given patient's age as well as known hyperlipid emia. Will continue to manage blood pressure, sugar and cholestero l levels. Supraventr icular tachycardia 0870978 I47.1 Patient has occasional tachycardi c runs. She will follow up with cardiology . Last holter was about a year ago. Peripheral vascular disease 089187066 I73.9 No claudicati on reported. [id number] Radha Soriano MD [address] [address] 01/22/2023 10:52:27 01/28/2023 02:47:21 History of hyperthyroidism 500092340 Z86.39 Depressive disorder 3548 9007 F32.1 History of calculus of kidney 198367233 Z87.442 Hepatitis C screening 41 8498240 Z11.59 Hyperlipidemia 94883346 E78.5 [id number] Radha Soriano MD [address] [address] 12/07/2022 14:21:51 12/07/2022 15:25:11 Hospital inpatient stay within past 30 days [id number] 106 Z76.89 Hospital ER, history and physical, consult and discharge notes reviewed. Labs and imaging reports reviewed. Transition al care management notes reviewed and appreciate d. Atypical chest pain 1025 50860 R07.89 Atypical left-sided substernal chest pain associated with anxiety, final diagnosis was NSTEMI. Coronary angiogram demonstrat ed a patent LAD stent and showed otherwise mild residual LAD disease with an ejection fraction of 60%. She has a follow-up with cardiology next week. Given that there is a close associatio n with her anxiety, we will work on maximizing control as below. Bradycardia 04096153 R00 .1 Taking metoprolol ER for CAD, with subsequent ly slow heart rates. Since her hospitaliz ation she has been decreased to 12.5 mg daily. Heart rates are better, and closer to the normal range. Expect that her fatigue will improve with this as well. Will continue to monitor along with Cardiology . Hyperlipidemia 52788134 E78.5 Lipid panel normal on last check. Continues on low dose Rosuvastat in. ASCVD risk score is 7.7%; this was not previously calculated . Encouraged healthier lifestyle habit to control lipid levels and weight. Will not change current dose of medication and plan to repeat panel in 2 months and adjust regimen as indicated. She is concerned that her thyroid may be contributi ng to some of her problems, and would like to have the TSH checked. Lab drawn today. Hypertensive disorder 38 200403 I10 BP looks good on current regimen of metoprolol ER. No proteinuri a in August of 2020 and normal eGFR currently. Continue to manage BP and other risk factors. F/u in 2 months or sooner prn for problems.H igh blood pressure (hypertens ion) is defined as blood pressure over 140/90. It is recommende d to treat blood pressures to a target of below 130/80 if you have high blood pressure with heart disease, diabetes or chronic kidney disease stage 3 or worse or simply a 10% or higher risk for a heart attack in the next 10 years. Blood pressures of 130-139/80 -89 are acceptable if there is no heart disease, diabetes or chronic kidney disease stage 3 or higher or 10-year risk of a heart attack below 10%. I recommend that you limit your salt intake to no more than 4 grams per day and monitor your blood pressure twice a day for 2 or 3 days every week. Please record reading along with date/time and bring your logs in for review at every office visit. Body mass index 25-29 - overweight 390543259 Z68.26 Weight down 4.2# since this time last year. Patient aware of need to continue to follow healthier dietary habits and remain active with dedicated exercise. Anxiety 04168351 F41.1 She does not feel that escitalopr am has been helping anymore, and would like to switch to something else. She requests a trial of sertraline , as this can be effective for anxiety. Will start low-dose sertraline 25 mg 1/2 tablet daily to make sure she is tolerating the medication and then increasing to 1 tablet daily. Since I have a follow-up scheduled with her in January, will not plan any sooner medication follow-up unless she is having problems. [id number] Radha Soriano MD [facility] [address] [place] [address] 01/01/2023 08:57:21 01/01/2023 17:34:45 Actinic keratosis 133403708 L57.0 Froze one lesion on left cheek. Follow up if not resolving. Patient education provided, specifical ly that such lesions represent chronic sun damage. Discussed importance of strict photoprote ction with sunscreen (SPF > or = 30) daily to the face, ears, neck, upper chest and dorsal hands, since those are the most common sites for skin cancer. Also, recommende d protective clothing and sun avoidance. Anxiety 42305935 F41.9 Will increase sertraline up to 50 mg daily. She will follow up in one month and we will see how she is doing. Sooner if needed. Atypical chest pain 1025 68264 R07.89 She stopped the metoprolol and is now on carvedilol . She is keeping an eye on blood pressure. She will follow up with cardiology . [id number] Radha Soriano MD [facility] [address] [place] [address] 01/24/2023 12:57:49 01/25/2023 07:25:07 Adult health examination 716183591 Z00.01 Reviewed history and health maintenanc e issues; updated chart. Complete physical exam performed; no unusual findings. Labs reviewed and recommenda tions given. Last Tetanus booster unknown. Last flu vaccine declines. Last Pneumovax 23 declines. Last Prevnar declines. Last shingles vaccine declines Shingrix. COVID vaccine 2020 x3 Pfizer. Last colorectal cancer screening 2017. Last MMG 2014; declines. Last Pap no longer indicated. Last DEXA distant past; declines. Depression screening completed. Negative; score 0/2. Falls risk assessment completed for patients at high risk for falls or those over the age of 65. STEADI score 0/14. Alcohol abuse screening completed. Negative; AUDIT-C score is 0/12. Follow up in 1 year for routine wellness exam, or sooner if problems arise.- regular physical exercise, 5x per week for at least 30 min- keep a healthy diet: especially low fat diet and avoiding trans-fatt y acids, avoid refined carbs as much as possible including added sugar items and items with high fructose corn syrup, increase natural fibers, vegetable, eating fruits daily, change refined grains such as white starchy items and white rice to whole grains like wheat and brown rice- avoid smoking and passive smoke exposure- limit alcoholic beverages- wear seat belts at all times Medication review done 516827995 Z76.89 Please let us know if your ability to obtain or take your medication s as prescribed changes. Medication adherence, or taking medication s correctly, is generally defined as the extent to which patients take medication as prescribed by their doctors. This involves factors such as getting prescripti ons filled, rememberin g to take medication on time, and understand ing the directions . Common barriers to medication adherence include: inability to pay for medication s, disbelief that the treatment is necessary or helping, difficulty keeping up with multiple medication s and complex dosing schedules as well as confusion about how and when to take the medication . Poor adherence can interfere with the ability to treat many diseases, leading to greater complicati ons from the illness and a lower quality of life for patients. Risk assessment done 107 929229 Z76.89 Environmen ayad and social supports that affect a patient's needs and goals are important. Please let us know if any of the following changes: 1. Basic ADLs, which are self-care activities that an individual must accomplish in order to remain self sufficient . These include bathing, dressing, toileting, transferri ng, maintainin g continence , and feeding. 2. Instrument al ADLs, which are higher level activities that individual s must perform or have help with to remain independen t in their homes. These include using the telephone, shopping, doing housework, doing laundry, preparing meals, driving, taking medication s, and managing money. Advance di rective discussed with patient 474412567 Z71.89 Advance directives are legal documents that allow you to spell out ahead of time what types of medical care you would want if you ever became unable to speak for yourself. These documents can help ensure that you get the care you want even if you have an unexpected serious illness or accident. Advance directives work best when they are part of a team effort. If you do not currently have advanced directives on file please discuss this with your [facility] Team. Anxiety 00618354 F41.9 She felt that the low-dose sertraline 50 mg daily was not enough, and requested to increase the dose to 50 mg twice daily. Her anxiety has been increased for the past 6 months, and she is hoping to get this under better control. Ordered as requested, and have advised her to follow-up in the next 6-8 weeks if she is not feeling better. Medication adjusted and sent to the pharmacy as requested. Atheroscle rosis of aorta 94731755 I70.0 She has been found to have atheroscle rosis of the aorta on previous imaging study of the chest. This is expected given her age as well as known hyperlipid emia, heart disease, history of smoking and hypertensi on. Will continue to maximize control of blood pressure, sugar and cholestero l levels. Bradycardia 32177220 R00 .1 Heart rate is low normal at 68 beats per minute on carvedilol IR 6.25 mg daily. She takes 2 of the 3.125 mg tablets at bedtime. She is being closely followed by Cardiology , and is doing better since switching to this medication . We will continue to monitor. 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 She is no longer followed by Oncology, and had a normal colonoscop y in 2018. There has been no evidence of recurrent disease. Will continue to monitor. Coronary arteriosclerosis 05347534 I25.10 She has known, nonobstruc tive coronary artery disease, and is status post a coronary angioplast y with stent placement in 2011. She was recently admitted with atypical chest pain, and angiogram at that time was unremarkab le. She currently takes low-dose aspirin, a beta-block er, an anti-angin al and a statin. She is followed closely by Cardiology , so will monitor along with them. Decreased hearing 108662 001 H91.90 She has hearing loss, and wears hearing aids in both ears. She denies any recent changes in her condition and is followed by Audiology. Will monitor along with them. Depressive disorder 7686 5735 F33.41 She suffered from depression after her , but reports that her symptoms have resolved. However, she continues on sertraline for anxiety. Will continue to monitor, and her PHQ 2 screening was negative. Ex-smoker 4774082 Z87.89 1 She smoked about 1 pack of cigarettes daily for 10 years overall with multiple quits and restarts between the ages of 17 in 35. She quit in 1985, and does not require screening for lung cancer based on time since quitting and total pack years. Gastroesop hageal reflux disease 055271240 K21.00 She is doing well on pantoprazo le 40 mg daily. Her most recent EGD in 2018 demonstrat ed gastritis and esophageal reflux. She is following appropriat e dietary and lifestyle habit modificati ons to control symptoms. No changes are needed at this time. History of calculus of kidney 443421113 Z87.442 She had a distant history of a kidney stone in 1980s, and is status post surgical extraction of stone. She is maintainin g adequate hydration and avoiding dehydratio n. Urinalysis is normal. History of hyperthyroidism 212091592 Z86.39 Normal TSH and free T4 level without medication . She is currently asymptomat ic.No changes recommende d. Repeat thyroid panel in 12 months or sooner as needed for problems or changes. Hyperlipidemia 48056599 E78.5 Lipid panel normal on last check. Continues on low dose Rosuvastat in. ASCVD risk score is 12.4%; this is worse than previous check. Encouraged healthier lifestyle habit to control lipid levels and weight. Will not change current dose of medication and plan to repeat panel in 12 months and adjust regimen as indicated. Renewed her rosuvastat in as requested. Hypertensive disorder 38 824203 I10 BP looks good on current regimen of carvedilol IR. No proteinuri a and low normal eGFR. Continue to manage BP and other risk factors. F/u in 12 months or sooner prn for problems.H igh blood pressure (hypertens ion) is defined as blood pressure over 140/90. It is recommende d to treat blood pressures to a target of below 130/80 if you have high blood pressure with heart disease, diabetes or chronic kidney disease stage 3 or worse or simply a 10% or higher risk for a heart attack in the next 10 years. Blood pressures of 130-139/80 -89 are acceptable if there is no heart disease, diabetes or chronic kidney disease stage 3 or higher or 10-year risk of a heart attack below 10%. I recommend that you limit your salt intake to no more than 4 grams per day and monitor your blood pressure twice a day for 2 or 3 days every week. Please record reading along with date/time and bring your logs in for review at every office visit. Insomnia 875553164 G47.0 0 Although she continues to have problems with falling asleep and waking earlier than desired, she is no longer using any sedative medication s or supplement s. She continues on sertraline 50 mg daily and will be increased to twice daily as above. Continue to monitor for now. Intermitte nt palpitations 903079182 R00.2 She reports intermitte nt palpitatio ns that are mostly controlled with carvedilol IR 3.125 mg 2 daily. As she is stable and followed by Cardiology , will continue to monitor. Nodule of lung 541666965 R91.1 J84.10 She has pulmonary fibrosis, as manifested by a lung nodule noted on chest imaging. There has been no change to indicate another pulmonary process, as this finding has been stable on consecutiv e imaging. She has refused CT scan of the chest to date. Will continue to monitor. Psychoacti ve substance dependence 1176632 F19.20 She continues on a psychoacti ve substance ( sertraline ) for mood control. This type of medication should not be stopped abruptly, and must be tapered to avoid withdrawal symptoms. In addition, mood might be severely affected, which should be taken into considerat ion when changing the dose of this medication or stopping it. No changes will be made at this time, and will continue to monitor. 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 This causes a functional disorder of the platelets, which in turn increases the risk of bleeding and bruising. However, this risk needs to be balanced against the cardiovasc ular benefit of aspirin. We will continue to monitor this condition. 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 Supraventr icular tachycardia 9123454 I47.10 Her previously noted SVT is well controlled on carvedilol 3.125 mg 2 tablets daily. She is followed closely by Cardiology , so will monitor along with them. Body mass index 25-29 - overweight 539812272 Z68.26 Weight down 9# since December of 2021. Patient aware of need to continue to follow healthier dietary habits and remain active with dedicated exercise. Depression screening [id number] Z13.31 Negative; score 0/2. Screening for alcohol abuse [id number] Z13.39 Negative; AUDIT-C score is 0/12. Hyperglycemia 82914182 R 73.9 Fasting glucose is in the pre-diabet es range at 103. Not on medication to control sugar level. Advised patient to work on diet and exercise habits to reduce sugar levels and control weight. Repeat fasting glucose and check A1c in 1 year to monitor status or sooner as needed. At very lo w risk for fall [id number] 61239 Z76.89 STEADI score 0/14. History of non-ST segment elevation myocardial infarction [id number] I25.2 She had an acute NSTEMI in October of 2022. She presented to the ER at that time with chest pain for 4 days, although she was already waiting for a coronary angiogram through her cardiologi st. She previously had a negative stress test in July. The angiogram was performed during her hospitaliz ation, and found to be unremarkab le. She was discharged back to her cardiologi with routine care, continuing on low-dose beta-block er, aspirin, statin and ranolazine ER. Will continue to follow along with Cardiology . [id number] Travis Gaytan DO [facility] [address] [place] [address] 03/09/2023 16:17:28 03/09/2023 16:55:36 Acute upper respiratory infection [id number] J06.9 [id number] Radha Soriano MD [facility] [address] [place] [address] 05/09/2023 09:21:29 05/09/2023 10:36:07 Hypertensive disorder 19084718 I10 Please follow a low salt diet. Limit your caffeine and alcohol intake. Hypertensi on can be a silent disease affecting your heart, brain, and kidneys, and is essential to be under good control. Checking your blood pressure outside of the office (home, pharmacy) aids your provider in determinin g adequate treatment. Increased physical fitness will help to improve and maintain good blood pressure control. Hyperlipidemia 43181689 E78.5 Stable on rosuvastat in 10mg. High cholestero l or hyperlipid emia can be managed with lifestyle modificati on and medication . Both treatments usually need to be continued because neither cure the problem. However, if you are overweight , losing a significan t amount of weight and being aerobicall y in shape will often decrease the number and dose of medication needed for control. An LDL goal of below 130 is the basic goal for people with no increased risk for heart disease. Getting the LDL below 100 is the goal for folks with a family history of heart disease. A cutoff of 70 for LDL is the guiding number for patients with heart disease or diabetes or very high family history risk. Please work on your diet (decreased fatty meats, eggs, high fat dairy, butter, etc.) and aerobic exercise as we discussed to achieve your LDL goal (which is likely to be different from other people). Your treatment is currently stable but can be improved with increased aerobic conditioni ng and maintainin g a normal weight. Anxiety 71029836 F41.9 Continue sertraline 50 mg daily. Gastroesop hageal reflux disease 888577785 K21.00 Continue on pantoprazo le 40 mg BID. Followed by GI. Eat slower and smaller meals. Problemati c foods include citrus, chocolate, coffee, mint, carbonated beverages and tomato based foods. Stable angina 942166620 I20.89 Continue with ranolazine ER once to twice daily. Pigmented skin lesion of uncertain nature 811106808 L81.9 She will see dermatolog y for biopsy of this as it returned after cryo. [id number] Radha Soriano MD [facility] [address] [place] [address] 03/26/2024 08:42:30 03/30/2024 05:03:34 Hypertensive disorder 75802193 I10 History of hyperthyroidism 621384589 Z86.39 Hyperglycemia 64250071 R 73.9 Hyperlipidemia 58644454 E78.5 Anxiety 37428512 F41.9 [id number] Radha Soriano MD [facility] [address] [place] [address] 07/17/2023 08:53:57 07/17/2023 10:04:42 Melanocytic nevus 587236146 D22.9 Normal flesh colored mole on jaw of no concern. checked with derm scope and normal. Skin lesion 33990965 L98 .9 2 small red spots on nose. They are not concerning but since she returns to dermatolog y for Mohs surgery on her face, she will have them check this. [id number] Radha Soriano MD [facility] [address] [place] [address] 07/29/2023 10:47:19 07/29/2023 11:27:18 Lower urinary tract symptoms 456102110 R39.9 Acute hemo rrhagic cystitis 01696789 N30.01 It is recommende d that you drink plenty of liquids and take the antibiotic s as prescribed . Please call if you fail to improve over the next 3 days or worsen. The urine culture should be back in 3-5 days and we will call if any change in medication s are recommende d. Also, make sure to wipe from front to back, void before and after sexual intercours e, and make sure to get out of the wet clothes (swimming garments) as soon as possible. You can take Tylenol for pain, you can try AZO over the counter for painful urination. We aware that the AZO this does cause the urine to turn orange. Make a follow up visit within the next week if your symptoms are persistant . It is your responsibi lity to seek emergency care if you are unable to reach our office. [id number] Radha Soriano MD [facility] [address] [place] [address] 08/27/2023 10:18:26 08/27/2023 11:09:11 Moderate recurrent major depression 83803786 F33.1 She continues on sertraline 50 mg twice daily, but to simplify this, will send in the prescripti on for the 100 mg tablets so that she may take 1 daily. Given her higher levels of anxiety, will also start low-dose buspirone 5 mg twice daily, starting just at night and working up to the 2nd dose if tolerated over the 1st week. She is aware that we can titrate this dose as well as needed to help with augmenting her depression and treating her anxiety. Gastroesop hageal reflux disease 312309911 K21.00 She has esophageal reflux associated with gastritis in 2018. Symptoms are controlled on pantoprazo le 40 mg twice daily; medication renewed as requested. She also follows appropriat e dietary and lifestyle habit modificati ons to control symptoms. No changes are needed at this time. Stable angina 170278716 I20.89 She reports that ranolazine ER 500 mg twice daily has been controllin g her angina pain. She has a history of an NSTEMI in October of 2022. She typically develops angina when under elevated stress or increased anxiety. She was last seen by Cardiology about a year ago. Renewed her medication as requested. Qualitativ e platelet disorder 573083139 D69.1 She is taking a medication ( aspirin ) that inhibits an enzyme in platelets responsibl e for thinning out the blood by decreasing platelet activity in the blood. This causes a functional disorder of the platelets, which in turn increases the risk of bleeding and bruising. However, this risk needs to be balanced against the cardiovasc ular benefit of aspirin. We will continue to monitor this condition. Psychoacti ve substance dependence 6532399 F19.20 She continues on a psychoacti ve substance ( sertraline ) for mood control. This type of medication should not be stopped abruptly, and must be tapered to avoid withdrawal symptoms. In addition, mood might be severely affected, which should be taken into considerat ion when changing the dose of this medication or stopping it. No changes will be made at this time, and will continue to monitor. Atheroscle rosis of aorta 56821082 I70.0 She has been found to have atheroscle rosis of the aorta on previous imaging study of the chest. This is expected given her age as well as known hyperlipid emia, heart disease, history of smoking and hypertensi on. Will continue to maximize control of blood pressure, sugar and cholestero l levels. Peripheral vascular disease 285908280 I73.9 She had an abnormal non-invasi ve peripheral arterial extremity screening test in December of 2021. Distal extremity pulses are intact and there is no report of claudicati on. She is aware that regular exercise and good control of blood sugar, pressure and cholestero l are all essential to keeping this process under control. Supraventr icular tachycardia 6199846 I47.10 Her previously noted SVT is well controlled on carvedilol 3.125 mg twice daily. She is followed by Cardiology , so will monitor along with them. [id number] Radha Soriano MD [facility] [address] [place] [address] 11/07/2023 11:15:49 11/07/2023 13:02:07 Hypertensive disorder 02808841 I10 BP looks good on current regimen of carvedilol IR. No proteinuri a in July and low normal eGFR in January. Continue to manage BP and other risk factors. F/u in 3 months or sooner prn for problems.H igh blood pressure (hypertens ion) is defined as blood pressure over 140/90. It is recommende d to treat blood pressures to a target of below 130/80 if you have high blood pressure with heart disease, diabetes or chronic kidney disease stage 3 or worse or simply a 10% or higher risk for a heart attack in the next 10 years. Blood pressures of 130-139/80 -89 are acceptable if there is no heart disease, diabetes or chronic kidney disease stage 3 or higher or 10-year risk of a heart attack below 10%. I recommend that you limit your salt intake to no more than 4 grams per day and monitor your blood pressure twice a day for 2 or 3 days every week. Please record reading along with date/time and bring your logs in for review at every office visit. Occipital headache 41493 7 R51.9 Had a near fall a few weeks ago, but never actually fell to the ground. However, she developed an instant headache at that time in the occipital region that radiated towards the frontal region. Gait has become unsteady and off balance. Will obtain an MRI of the brain for further evaluation . Moderate r ecurrent major depression 73804301 F33.1 Significan t increase in depression and anxiety symptoms related to tension between her and her daughter's boyfriend. Also having difficulty finding a new job after she resigned from her old job due to high stress levels. Continues on sertraline 200 mg daily and only increased her buspirone to 5 mg twice daily about a week ago. Will try adding low-dose mirtazapin e 7.5 mg at bedtime to help with sleep, anxiety and depression . Renewed sertraline . Follow-up in about 6 weeks to re-evaluat e, or contact us sooner if there are problems. Impairment of balance 38 1821868 R26.89 Notices that her balance has been off and that she is running into things while ambulating . Given her persistent headache and near fall, will obtain a brain MRI for further evaluation . [id number] Radha Soriano MD [facility] [address] [place] [address] 02/21/2024 14:56:55 02/21/2024 16:19:58 Lower urinary tract symptoms 450740687 R39.9 Complains of pelvic pressure and urinary frequency. Urine dip shows blood, protein and ketones but no nitrites or leukocyte esterase. Given her symptoms, and the potential for a rectovagin al fistula as below, will treat with Augmentin 500 mg twice daily for a week. Will send urine culture for verificati on. She will let me know how she is feeling early next week. Anxiety 40113078 F41.9 Anxiety seems to be significan tly higher than previously . She recalls having thyroid storm in the , and states that this feels the same. Last thyroid labs were about a year ago, and she would like to have these drawn now. Currently taking sertraline 200 mg daily, buspirone 5 mg twice daily and mirtazapin e 7.5 mg at bedtime, although the mirtazapin e has been causing hangover lately. Will plan to reduce the sertraline to 150 mg daily and move the buspirone tablets to bedtime in a single dose. She can continue to use the mirtazapin e as needed for sleep, although she did not feel that it helped with her anxiety. She will follow up with me in about a week via phone or portal message to let me know how things are going. Would plan to start low-dose generic Pristiq next week while we are tapering off of the sertraline if her high anxiety symptoms remain. Moderate r ecurrent major depression 86164369 F33.1 Anxiety seems to be more prominent, although she does have moderate, recurrent major depression at baseline. Did not tolerate adding mirtazapin e due to hangover and weight gain. In addition, she did not feel that it was very effective. We will reduce sertraline to 150 mg daily and look at adding generic Pristiq when we reduce the dose further to 100 mg next week. She will remain in contact with me regarding symptom status, and reviewed potential serotonin withdrawal symptoms in detail. Vaginal irritation [id number] 3679 N89.8 She reports vaginal odor and irritation as well as the presence of stool when she wipes after urination. Looking online, she feels that she may have a rectovagin al fistula, but she has not recently had a pelvic exam. She requests to refer to gynecology rather than doing this here in our office. She does have a history of likely episiotomy at the time of her vaginal deliveries , although she is not sure. Referral ordered as requested. 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 She is experienci ng difficulty swallowing solids but not liquids, and she reports that food eventually passes. She continues on pantoprazo le 40 mg twice daily. We will refer to GI as she is not happy with her current provider. I advised that she will likely need a repeat EGD for further evaluation . Pain of left breast 1010 246534 N64.4 She reports pain in the lateral aspect of the left breast, and has not had a mammogram since 2014. She declines a breast exam today, but would like to have a mammogram ordered. No known family history of breast cancer. Order sent for diagnostic mammogram with ultrasound if needed. [id number] Downing Stoney [facility] [address] [place] [address] 02/23/2024 13:44:54 02/23/2024 14:46:56 Lower urinary tract symptoms [id number] R39.9 Patient was started on augmentin yesterday. Continue. Call if vaginal symptoms persist. Vaginal irritation 77548 6004 N89.8 Was referred to IMPLANT COORDINATOR. Advised to keep that appointmen t.No s/s infection, drainage, or prolapse noted on exam Prior note:She reports vaginal odor and irritation as well as the presence of stool when she wipes after urination. Looking online, she feels that she may have a rectovagin al fistula, but she has not recently had a pelvic exam. She requests to refer to gynecology rather than doing this here in our office. She does have a history of likely episiotomy at the time of her vaginal deliveries , although she is not sure. Referral ordered as requested. [id number] Radha Soriano MD [facility] [address] [place] [address] 03/12/2024 11:30:16 03/12/2024 13:18:16 Acute cough [id number] 80384746 R05.1 See above Viral uppe r respiratory tract infection 760085572 J06.9 You have an upper respirator y infection. The infections are usually viral. Please report sudden increase of temperatur e to 101 after 10 days of cold/sinus symptoms, purulent nasal discharge or pain in teeth on one side of face. I recommend over the counter treatments at this time:Try Mucinex DM 600 mg. Take one tablet every 12 hours to liquefy mucous secretions . The DM portion of the medication is a cough suppressan t. It is important to drink plenty of water while taking this medication .Try Nasal Saline rinses: Use a buffered solution and rinse each side of the nose every 12 hours. This will help liquefy nasal secretions , and wash out dust and allergens. Also try warm salt water gargles for sore throat. Drink lots of fluids. Get plenty of rest. Avoid sugar and junk food, feed your body healthy foods.Call if symptoms worsen after initial 7-10 days of symptoms. The cough can sometimes linger a little longer that other symptoms. [id number] Radha Soriano MD [address] [address] 03/17/2024 13:52:49 03/17/2024 14:53:16 Bronchitis 89056499 J40 Patient will be given a Z-Maurizio, 5 days of prednisone 20, and codeine/gu aifenesin cough syrup. She does need a note for work and hopes to be able to return by Sunday, next week.Bronc hitis an inflammati on of the lining of the bronchial tubes which carry air to and from your lungs. Acute bronchitis is very common, often developing from a cold or other respirator y infection. It usually improves within a week to 10 days although the cough can last for several weeks to months. Bronchitis is characteri zed by cough with or without sputum production and will resolve completely within 1-6 weeks. Bronchitis is most frequently related to viral infection and bacteria in not a common cause accounting for less that 6% of cases, consequent ly, antibiotic s will not usually make a difference in the clinical course. Wheezing and mild shortness of breath may accompany the cough and bronchial hyper-resp onsiveness usually resolves without medication s. There is usually no need for a chest x-ray unless symptoms worsen or persist. [id number] Radha Soriano MD [address] [place] [address] 04/01/2024 15:09:33 04/01/2024 16:27:17 Adult health examination 309807531 Z00.01 Reviewed history and health maintenanc e issues; updated chart. Complete physical exam performed; no unusual findings. Labs reviewed and recommenda tions given. Last Tetanus booster unknown. Last flu vaccine declines. Last Pneumovax 23 declines. Last Prevnar declines. Last shingles vaccine declines Shingrix. COVID vaccine 2020 x3 Pfizer. Last colorectal cancer screening 2017. Last MMG 2023. Last Pap no longer indicated. Last DEXA declines. Depression screening completed. Positive; score 04/11. Falls risk assessment completed for patients at high risk for falls or those over the age of 65. STEADI score 5/14. Alcohol abuse screening completed. Negative; AUDIT-C score is 0/12. Follow up in 1 year for routine wellness exam, or sooner if problems arise.- regular physical exercise, 5x per week for at least 30 min- keep a healthy diet: especially low fat diet and avoiding trans-fatt y acids, avoid refined carbs as much as possible including added sugar items and items with high fructose corn syrup, increase natural fibers, vegetable, eating fruits daily, change refined grains such as white starchy items and white rice to whole grains like wheat and brown rice- avoid smoking and passive smoke exposure- limit alcoholic beverages- wear seat belts at all times Medication review done [id number] Z83.89 Please let us know if your ability to obtain or take your medication s as prescribed changes. Medication adherence, or taking medication s correctly, is generally defined as the extent to which patients take medication as prescribed by their doctors. This involves factors such as getting prescripti ons filled, rememberin g to take medication on time, and understand ing the directions . Common barriers to medication adherence include: inability to pay for medication s, disbelief that the treatment is necessary or helping, difficulty keeping up with multiple medication s and complex dosing schedules as well as confusion about how and when to take the medication . Poor adherence can interfere with the ability to treat many diseases, leading to greater complicati ons from the illness and a lower quality of life for patients. Risk assessment done 802 133385 Z76.89 Environmen ayad and social supports that affect a patient's needs and goals are important. Please let us know if any of the following changes: 1. Basic ADLs, which are self-care activities that an individual must accomplish in order to remain self sufficient . These include bathing, dressing, toileting, transferri ng, maintainin g continence , and feeding. 2. Instrument al ADLs, which are higher level activities that individual s must perform or have help with to remain independen t in their homes. These include using the telephone, shopping, doing housework, doing laundry, preparing meals, driving, taking medication s, and managing money. Advance di rective discussed with patient [id number] Z71.89 Advance directives are legal documents that allow you to spell out ahead of time what types of medical care you would want if you ever became unable to speak for yourself. These documents can help ensure that you get the care you want even if you have an unexpected serious illness or accident. Advance directives work best when they are part of a team effort. If you do not currently have advanced directives on file please discuss this with your [facility]. Depression screening 171 378825 Z13.31 Positive; score 12/27. Screening for alcohol abuse 562167852 Z13.39 Negative; AUDIT-C score is 0/12. Hyperlipidemia 88273720 E78.5 Lipid panel normal on last check; LDL is greater than 70. Continues on moderate dose Rosuvastat in. ASCVD risk score is 9.7%; this is improved from previous check. Encouraged healthier lifestyle habit to control lipid levels and weight. Will increase dose of medication to 20 mg daily and plan to repeat panel in 3 months and adjust regimen as indicated. Hypertensive disorder 38 438142 I10 BP looks good on current regimen of carvedilol IR. Proteinuri a in February and normal eGFR currently. Continue to manage BP and other risk factors. F/u in 3 months or sooner prn for problems.H igh blood pressure (hypertens ion) is defined as blood pressure over 140/90. It is recommende d to treat blood pressures to a target of below 130/80 if you have high blood pressure with heart disease, diabetes or chronic kidney disease stage 3 or worse or simply a 10% or higher risk for a heart attack in the next 10 years. Blood pressures of 130-139/80 -89 are acceptable if there is no heart disease, diabetes or chronic kidney disease stage 3 or higher or 10-year risk of a heart attack below 10%. I recommend that you limit your salt intake to no more than 4 grams per day and monitor your blood pressure twice a day for 2 or 3 days every week. Please record reading along with date/time and bring your logs in for review at every office visit. Lower urin scott tract symptoms 865073716 R39.9 Most recent urine culture last month grew mixed bacteria from the genital skin, and did not indicate a pathologic al UTI. She was treated with antibiotic s at that time given her urinary symptoms, and has no residual symptoms. Prediabetes 186121741 R7 3.03 A1c is in the pre-diabet es range at 5.8%, indicating hyperglyce luis alfredo over the past 3 months. Not on medication to control sugar level. Advised patient to work on diet and exercise habits to reduce sugar levels and control weight. Repeat fasting glucose and check A1c in 3 months to monitor status or sooner as needed. Coronary arteriosclerosis 10929573 I25.119 She has known, nonobstruc tive coronary artery disease, and is status post a coronary angioplast y with stent placement in 2011. She was admitted in October of 2022 with atypical chest pain, but an angiogram at that time was unremarkab le. She was subsequent ly admitted in January for an ST elevation myocardial infarction . She currently takes low-dose aspirin, a cardiosele ctive beta-block er, an anti-angin al and a statin. She is followed closely by Cardiology , so will monitor along with them. However, she would like to be transferre d to a provider who does both interventi onal and general cardiology , as her current cardiologi st does not. I advised her to look into [facility] offices in the local area to see if any of their cardiologi sts do both. Thyroid fu nction tests abnormal 216153393 R79.89 Normal TSH with a low free T4 level and a low normal total T4 level in February without medication . She denies any symptoms of hypothyroi dism at this time. No changes recommende d. Repeat thyroid panel in 3 months or sooner as needed for problems or changes. Alkaline p hosphatase above reference range [id number] R74.8 Alkaline phosphatas e level is elevated at 144, although it was last elevated in 2020. Will add an alkaline phosphatas e isoenzyme panel and GGT to her next labs in 3 months for further evaluation . Anxiety [id number] F41.9 Anxiety is higher than normal as she has not had contact with her daughter in some time. This has increased her worry and worsened her depression as well. Will renew her medication as requested as she does not wish to change anything at this point. Moderate r ecurrent major depression [id number] F33.1 Anxiety seems to be more prominent, but she does have worsening moderate, recurrent major depression at baseline. Did not tolerate adding mirtazapin e due to hangover and weight gain. In addition, she did not feel that it was very effective. We will reduce sertraline to 100 mg daily and increase desvenlafa xine ER 250 mg daily as this was helpful when it was originally started. She will remain in contact with me regarding symptom status, and reviewed potential serotonin withdrawal symptoms in detail. She will follow-up with me in about 4-6 weeks to assess her overall status and let me know if we need to make any changes. Stable angina [id number] I20.89 She has been using ranolazine ER 500 mg only once daily for some reason, but is not sure why she is doing this. I encouraged her to increase the dose to the prescribed twice daily regimen to see if this is better for her. She was previously admitted for an ST elevation myocardial infarction in January of 2023. She is interested in changing to a different cardiologi st who can do both interventi onal as well as general cardiology . I advised her to check into [facility] in the local area to see if any of their cardiologi st do both. Renewed her ranolazine ER and reinforced the need to take this medication twice daily. History of fall [id number] Z91.81 STEADI score 08/27. [id number] Radha Soriano MD [address] [address] 06/25/2024 08:33:28 06/29/2024 07:06:32 Prediabetes [id number] R73.03 Hyperlipidemia 57152748 E78.5 Hypertensive disorder 38 326685 I10 Thyroid fu nction tests abnormal [id number] R79.89 Alkaline p hosphatase above reference range [id number] R74.8 [id number] Radha Soriano MD [address] [address] 04/11/2024 13:41:37 04/11/2024 14:53:58 Upper abdominal pain 25459610 R10.10 Her upper abdominal pain sounds like duodenitis or gastritis, and she does have a known history of GERD with gastritis and Wilkerson's esophagus. Although she is on an adequate regimen with pantoprazo le, she is having pain through this. Will switch to omeprazole 40 mg twice daily and sucralfate 1 g 4 times daily in a slurry for 10 days to see if this helps. Will also check for pancreatit is as well as for infection with labs. Will try to get her in with another GI in the short term if possible. Lower abdominal pain 545 01755 R10.30 She is reporting lower, midline abdominal pain, and wonders if this might be diverticul itis, as it feels similar to her previous episode. Flat and upright x-ray of the abdomen shows moderate stool present in the colon with a nonspecifi c gas pattern. No evidence for obstructio n or perforatio n, but findings indicate probable infection/ inflammati on of the colon. Would follow the current plan to see if symptoms improve. Acute diarrhea [id number] R19.7 Of note, she is still taking 150 mg of sertraline in addition to the desvenlafa xine ER 50 mg daily. I advised her to cut back to the 100 mg of sertraline as excess serotonin can cause diarrhea. Given the abdominal cramping and reported diarrhea, will treat with Lomotil up to 2 tablets up to 4 times daily as needed for the next 10 days. The diarrhea that she is experienci ng is likely leaking through given the moderate stool pattern noted on x-ray. She can discontinu e use of Imodium at this point. [id number] Radha Soriano MD [facility] [address] [place] [address] 07/17/2024 13:21:26 07/17/2024 14:22:12 Alkaline phosphatase above reference range [id number] R74.8 Alkaline phosphatas e level remains mildly elevated at 133, but the isoenzyme panel was normal. ALT, AST and GGT are all normal. Will check a parathyroi d hormone level to assess for increased activity as she is worried about this being the underlying cause. No action is necessary at this time, and will continue to monitor. Acute diarrhea [id number] R19.7 Resolved. Hyperlipidemia 15328808 E78.5 Lipid panel normal on last check; LDL is above 70. Continues on moderate dose Rosuvastat in. ASCVD risk score is 12.2%; this is worse than previous check. Encouraged healthier lifestyle habit to control lipid levels and weight. Will not change current dose of medication and plan to repeat panel in 6-12 months through her new PCP. Hypertensive disorder 38 301572 I10 BP looks good on current regimen of carvedilol IR. Trace proteinuri a and normal eGFR. Continue to manage BP and other risk factors. F/u in 6-12 months or sooner prn for problems.H igh blood pressure (hypertens ion) is defined as blood pressure over 140/90. It is recommende d to treat blood pressures to a target of below 130/80 if you have high blood pressure with heart disease, diabetes or chronic kidney disease stage 3 or worse or simply a 10% or higher risk for a heart attack in the next 10 years. Blood pressures of 130-139/80 -89 are acceptable if there is no heart disease, diabetes or chronic kidney disease stage 3 or higher or 10-year risk of a heart attack below 10%. I recommend that you limit your salt intake to no more than 4 grams per day and monitor your blood pressure twice a day for 2 or 3 days every week. Please record reading along with date/time and bring your logs in for review at every office visit. Lower abdominal pain 545 42271 R10.30 She complains of lower abdominal pain with bloating and belching. CT scan of the abdomen and pelvis in March was unremarkab le. I wonder whether she may have irritable bowel causing her symptoms, and would consider checking for SIBO as well as a trial of a low-dose TCA to see if this helps. Her last colonoscop y in 2018 demonstrat ed diverticul osis and internal hemorrhoid s, but no other findings. I advised her to follow-up with a GI once she is settled in [facility]. Prediabetes [id number] R7 3.03 A1c is in the pre-diabet es range at 5.7%, indicating hyperglyce luis alfredo over the past 3 months. Not on medication to control sugar level. Advised her to work on diet and exercise habits to reduce sugar levels and control weight. Repeat fasting glucose and check A1c in 6 months to monitor status or sooner as needed. Thyroid fu nction tests abnormal [id number] R79.89 Normal TSH and total T4 level with a low free T4 level without medication . Given her symptoms, I would consider naila pérez hypothyroi dism. Would like to start medication : levothyrox ine 50 mcg daily to see if she feels any better at all. Repeat thyroid panel in 6 weeks or sooner as needed for problems or changes. Given her report of a thyroid blast, jose alfredo pérez check thyroid peroxidase and thyroglobu xander antibodies now and consider possible thyroid burn out if these are positive. Upper abdominal pain 831 22511 R10.10 I still feel that her upper abdominal pain represents duodenitis or gastritis given her prior history. She also mentions that her back pain flares up when the abdominal pain flares up, leading me to suspect possible irritation of the retroperit oneum. She continues on omeprazole 40 mg twice daily, and has plans to follow-up with GI once she settles in [facility]. Urinary symptoms 5303228 08 R39.9 Her urine culture grew mixed bacteria from the genital skin, and does not typically indicate a UTI. However, given her reported symptoms, she was started on ciprofloxa renata 500 mg twice daily for 5 days. She is encouraged to work on adequate hydration and consider daily prophylaxi s with cranberry capsules. Symptoms improved but didn't resolve. Moderate r ecurrent major depression 21403204 F33.1 She has anxiety as well as depression , and remains stable on buspirone 5 mg 2 tablets daily, desvenlafa xine ER 50 mg daily and sertraline 100 mg daily. Originally , I had wanted to completely discontinu e the sertraline and transition to the desvenlafa xine ER, but as she is moving in a few weeks, I will keep her on the current regimen and encourage her to address this with her new PCP once she establishe s. Psychoacti ve substance dependence 4208650 F19.20 She continues on a psychoacti ve substance ( desvenlafa xine ER, sertraline ) for mood control. This type of medication should not be stopped abruptly, and must be tapered to avoid withdrawal symptoms. In addition, mood might be severely affected, which should be taken into considerat ion when changing the dose of this medication or stopping it. No changes will be made at this time, and will continue to monitor. Night sweats 41644096 R6 1 She reports night sweats, and although this may be due to excess serotonin from the desvenlafa xine ER and sertraline , will check a QuantiFERO N gold to assess for possible tuberculos is, although unlikely. She may need to work with her new PCP on transition ing to a single depression medication as excess serotonin can cause this finding. Health Concerns Section Related Observation LastModified by Organization Detai ls LastModified Time None Recorded Concern Status LastModified by Organization Details LastModified Time None Recorded Advance Directives Directive Y: (not on file)full code st atus, no prolonged life support Payers Insurance Date Sequence Insurance Name Policy Number Policy Jorge Covered Member ID Jorge Member ID Guarantor Name 09/02/2024 1 [facility] (MEDICARE REPLACEMENT/A DVANTAGE - HMO) [id number] Dora Barraza [id number] Dora Barraza 10/05/2022 1 [facility] - CAPITATION PLAN (MEDICARE REPLACEMENT/A DVANTAGE - HMO) [id number] Dora A Juventinoette [id number] Dorasa Sahara Barraza Notes Date Note Type Note Provider Name and Address Organization Details Recorded Time 04/01/2024 text/html Patient is a 73 year old female here for a preventative visit. Patient is not a . Patient is an ex-smoker. Screening for lung cancer has not been done and AAA has not been done. Lab work reviewed and discussed with patient. Last QF: 12/28/21 R severe, L normal Last PAP: no longer indicated distant past; normal Last mammogram: 03/31/24 normal w/ glandular tissue, scattered dense tissue; BI-RADS IB Last DEXA: distant past; declines Last Colonoscopy Screen: 2017 reportedly normal Vaccines:COVID 2020 x3; unknown tetanus, declines flu, PPV23, PCV, SGX.Hep C: declined 01/03/23 PHQ screening performed today and reviewed. PHQ-9 04/11 Hearing: not done. Falls : reported STEADI 08/27 Advanced Directives: discussed. Any ER or hospital visits since last seen:02/04/23 hosp STEMI7 hosp CP4/ hosp CP/bradycardia Abdominal, back or joint pain etc.: back pain w/ lifting, neck pain Incontinence/over active bladder: UUI, nocturia x0-1 Insomnia/sleep pattern, mood issues: depression, onset insomnia, name/word recall Questions/concerns: depression; had a fall while walking dogs Any Concerns:with getting adequate exercise? Nowith balance, walking or falls? Nowith bladder control or leakage? No Radha Soriano MD [facility] [place], [address], [facility] 04/02/2024 16:15:48 04/11/2024 text/html Here for routine follow up exam for chronic conditions without recent labs to review. Has concerns to discuss.Pt states she has had diarrhea for the last 2 weeks, with abdominal cramps. Pt states she has taken imodium and using heating pad to help her abd. Epigastric/mid-to-l ower abdominal pain, gas, bloating, diarrhea. New since last visit w/ me on the . Food goes right thru; using Imodium up to 4 tablets/day. Already on pantoprazole 40 mg 2x/day. Saw GI (Dr. Wright) T[facility] STRETCHER, but no help and they didn't even examine her. Weakness, fatigue, poor appetite. Radha Soriano MD [facility] [place], [address], [facility] 04/12/2024 14:34:39 07/17/2024 text/html Here for routine follow up exam for chronic conditions and lab review. Has concerns to discuss.Night sweats for 6 months- wants to check thyroid and for diabetesstill having pain in upper stomach sweats for about 6 months, more at night than daytime. Now happening 3x/week and waking her from sleep. Having back and epigastric pain; thinks it's kidney stones. Knew she had a single large stone that was left after her surgery many years ago. Strong FH DM. Wonders if she might be heading this way. Very fatigued; feels something on the R lateral neck. History of thyroid blast (hyperthyroid episode?) after a prolonged sore throat. Moving to [place] end of July; has an appointment with a new PCP, but needs to meet her first before requesting my records Radha Soriano MD [address] [place], [address], [facility] 07/19/2024 17:32:09 OBGyn Episode No OBEpisode recorded.
== END 2024-10-16 13:46 | disposition home or self-care (01) ==
LOC: HO.HMCSH 13:06
PROVIDERS: PCP Internal Medicine; Visit Provider Physician Assistant Medical
DX: R07.9 Chest pain, unspecified (principal); Z76.89 Persons encountering health services in other specified circumstances; R00.2 Palpitations; L98.9 Disorder of the skin and subcutaneous tissue, unspecified; R10.9 Unspecified abdominal pain; F41.9 Anxiety disorder, unspecified; E07.9 Disorder of thyroid, unspecified

== ENCOUNTER → 2024-10-16 13:06 | Outpatient (BNVA) | payer MEDICARE, SELFPAY | PROVIDERS: PCP Internal Medicine; Visit Provider Physician Assistant Medical | DX: R00.2 Palpitations (principal); R07.9 Chest pain, unspecified; L98.9 Disorder of the skin and subcutaneous tissue, unspecified; R10.9 Unspecified abdominal pain; F41.9 Anxiety disorder, unspecified; E07.9 Disorder of thyroid, unspecified; Z76.89 Persons encountering health services in other specified circumstances | CPT/HCPCS: 96127; 99202 ==

== ENCOUNTER 2024-10-21 12:15 | Emergency (ER) | payer MEDICARE, SELFPAY ==
--- NOTE | 2024-10-21 | ECG_ITS ---
Test Reason : CHEST PAIN Blood Pressure : */* mmHG Vent. Rate : 62 BPM Atrial Rate : 62 BPM P-R Int : 156 ms QRS Dur : 80 ms QT Int : 392 ms P-R-T Axes : 48 2 5 degrees QTcB Int : 397 ms Normal sinus rhythm Low voltage QRS Cannot rule out Anterior infarct , age undetermined Abnormal ECG When compared with ECG of 19-Dec-2016 14:05, No significant change was found Referred By: Generic ED Physician Electronically Signed By: Gopi Noriega
--- NOTE | ~2024-10-21 | XR_ITS ---
EXAMINATION: XR CHEST CLINICAL INFORMATION: Chest pain COMPARISON: July 04, 2017. TECHNIQUE: Frontal view of the chest was obtained. FINDINGS: Hyperinflated lungs. Pulmonary reticular pattern. Bilateral apical lung scarring. No consolidation pleural effusion or pneumothorax. Cardiomediastinal silhouette size is normal. Calcified plaque aortic arch. Multilevel spondylosis. XR/XR chest 1V IMPRESSION: Chronic interstitial lung disease. No acute airspace disease. Electronically signed by: Cristhian Mills MD 10/21/2024 01:00 PM EDT
[2024-10-21 12:34] VITALS: BP 112/61; PULSE 63; RESP 18; TEMP 36.7; O2SAT 97; BMI 26.3
--- NOTE | 2024-10-21 12:38 | ED_ITS ---
HPI - Chest Pain General Chief Complaint: Chest Pain Stated Complaint: chest pain Time Seen by Provider: 10/21/24 14:26 History of Present Illness ED Provider: Rene Hand MD HPI narrative: 74-year-old female reports chronic intermittent chest pain usually electrical sensation like in the left side of the chest lasting just a few sec occasionally radiating to the left posterior neck this has been going on for at least months she address this with her PCP at a recent visit she is new to the area from [place]. She does have a history of CAD with a stent placed in 2011 she is unsure if she had an TX at that time. Her PCP has ordered an outpatient stress test she is unclear when this is but should be this summer. She had a slightly different character of the pain with some subtle associated and longer duration chest pressure today. No difficulty breathing no sweating, nausea vomiting. No calf swelling or leg injuries denies any history of DVT or PE. She reports left heart catheterization in [place] last year that she verbally reports to me was normal with a patent stent and she did not receive any interventions or stents. Related Data Home Medications ?Medication ?Instructions ?Recorded ?Confirmed aspirin 81 mg tablet 81 mg PO DAILY 10/16/2407/08 buspirone 5 mg tablet 10 mg PO ONCE 10/16/2410/16 carvedilol 3.125 mg tablet 3.125 mg PO BID 10/16/24 desvenlafaxine succinate 50 mg 50 mg PO DAILY depressi ve disorder 10/16/24 10/16/24 tablet,extended release 24 hr levothyroxine 50 mcg tablet 50 mcg PO DAILY 10/16/24 0 10/16/24 (Synthroid) omeprazole 40 mg capsule,delayed 40 mg PO BID 10/16/24 10/16/24 release ranolazine 500 mg tablet,extended 500 mg PO BID 10/16/24 release,12 hr rosuvastatin 20 mg tablet 20 mg PO DAILY 10/16/2407/08 sertraline 100 mg tablet 100 mg PO DAILY 10/16/2407/08 Allergies Allergy/AdvReac Type Severity Reaction Status Date / Time acetaminophen (From PERCOCET) Allergy Unknown NAUSEA & Verified 10/21/24 12:35 VOMITING, HALLUCINATE morphine (MORPHINE) Allergy Unknown NAUSEA & Verified 10/21/24 12:35 VOMITING nitroglycerin (NITROGLYCERIN) Allergy Unknown VOMITING, Verified 10/21/24 12:35 vomit oxycodone (From PERCOCET) Allergy Unknown NAUSEA & Verified 10/21/24 12:35 VOMITING, HALLUCINATE Sulfa (Sulfonamide Allergy Unknown RASH Verified 10/21/24 12:35 Antibiotics) (SULFA (SULFONAMIDE ANTIBIOTICS)) sulfa Allergy Mild Unknown Uncoded 10/16/24 13:22 [facility] Past Medical History Medical History Thyroid disorder Anxiety Intermittent chest pain Skin lesions Abdominal pain Intermittent palpitations Establishing care with new doctor, encounter for Family History Family History Father BP (high blood pressure) Mother BP (high blood pressure) CHF (congestive heart failure) Social History Social History Housing: Apartment Alcohol intake: current Alcohol intake frequency: does not drink Patient Tobacco Use Status: Former Tobacco user Advance Directives: No Advance Directives Information Provided: Yes Do you have a plan to hurt others: No Plan service: No Current occupational status: unemployed Cognitive needs: No Hearing needs: Yes (b/l hearing aids) Vision needs: Yes (rx glasses) Physical Exam 2 Vital Signs: Vital Signs: Last Vital Signs Temp 98.0 F 10/21/24 16:36 Pulse 63 10/21/24 16:36 Resp 18 10/21/24 16:36 BP 112/61 10/21/24 16:36 Pulse Ox 97 10/21/24 16:36 O2 Del Method Room Air 10/21/24 16:36 BMI result Body Mass Index 26.3 EXAM: Gen: Alert, awake, well appearing, well hydrated. Head: Atraumatic Eyes: Anicteric, Normal conjunctiva. ENT: Moist mucosa, no pallor. ? Neck: Supple. Skin: ?No observable rash or bruising on exposed or examined skin Respiratory: Breathing comfortably, No distress.Clear to auscultation bilaterally, symmetric chest expansion, No wheeze, rales, ronchi. Cardiovascular: Regular rate and rhythm. No murmurs or rub. Well perfused periphery, warm extremities. No edema. ?No calf tenderness Abdominal: No focal tenderness. Soft, no objective distension. No palpable masses or obvious organomegaly. ?No guarding, no rebound tenderness or other peritoneal findings. : No flank tenderness. Neuro: Alert. Gross movement of all extremities intact. ? Psych: Calm. Cooperative. MSK: No grossly visible deformity. Vital signs: See flowsheet Course Course Course Narrative: RME: 74-year-old female with history of cardiac stent presents to ED for altered on chest pain since this morning. Patient has had stent placed in 2011. Patient denies any leg swelling calf pain or coughing up blood. Negative for pitting edema. Labs EKG chest x-ray ordered Medical Decision Making Medical Decision Making MDM Narrative: Medical Decision Makin-year-old female with a history of CAD stent in 2011. Chronic intermittent chest pain very atypical and nonexertional. Today slightly different character. She is awake alert oriented has stable vitals. Characterize still not suggestive of ACS not classical angina. She also reports to me a normal left heart catheterization 2023. Troponin x3 negative. Nonischemic ECG see interpretation below. Chest x-ray normal. Remainder of lab work reassuring. No injuries to the chest wall no signs or symptoms of DVT doubt PE. Preliminary Favored Differential Diagnosis: Musculoskeletal pain, atypical chest pain, pericarditis, pleuritis, ACS among additional considered etiologies Testing Interpreted Independently: ECG: Low voltage QRS, no acute ischemic changes. Sinus rhythm, QTC 397. No comparison Radiology or Lab testing Results Reviewed: Troponin x2 negative. Non actionable lab work. X-ray without acute findings Consults: Not Applicable Independent Historians/External Chart Reviews: Not Applicable Social Determinants of Health Impacting MDM/Planning: Not Applicable Lab Data 10/21/24 12:45 10/21/24 12:44 Labs: Lab Results 10/21/24 10/21/24 10/21/24 Range/Units 12:44 12:45 13:46 WBC 6.8 (4.8-10.8) X10*3/uL RBC 4.31 (4.20-5.50) X10*6/uL Hgb 12.1 (12.0-16.0) g/dl Hct 36.1 L (37.0-47.0) % MCV 83.8 (80.0-98.0) fL MCH 28.1 (27.0-33.0) pg MCHC 33.5 (31.0-35.0) g/dl RDW 13.5 (11.0-16.0) % Plt Count 208 (160-400) X10*3/uL MPV 8.7 L (9.4-12.3) fL Immature Gran % (Auto) 0.1 (0.0-0.4) % Neut % (Auto) 57.1 (45-73) % Lymph % (Auto) 26.7 (20-40) % [place] % (Auto) 8.4 (2-11) % Eos % (Auto) 6.7 H (0-4) % Baso % (Auto) 1.0 (0-2) % Lymph # (Auto) 1.8 (1.2-4.9) X10*3/uL [place] # (Auto) 0.6 (0.1-1.2) X10*3/uL Eos # (Auto) 0.5 H (0.0-0.4) X10*3/uL Baso # (Auto) 0.1 (0.0-0.2) X10*3/uL Abs Immat Gran (auto) 0.01 (0.00-0.03) X10*3/uL Absolute Neuts (auto) 3.9 (2.0-8.3) x10*3/uL Absolute Nucleated RBC 0.000 (0.0-0.012) X10*3/uL Nucleated RBC % (auto) 0.0 (0.0-0.2) /100WBC Sodium 141 (135-145) mmol/L Potassium 4.3 (3.3-5.1) mmol/L Chloride 106 (96-108) mmol/L Carbon Dioxide 28 (22-29) mmol/L Anion Gap 11 L (12-20) BUN 13 (9-16) mg/dL Creatinine 0.77 (0.5-1.4) mg/dL Estim Creat Clear Calc 59.9 Estimated GFR > 60 Random Glucose 88 (60-115) mg/dL Calcium 9.2 (8.4-10.2) mg/dL Total Bilirubin 0.6 (0.0-1.0) mg/dL AST 28 (5-31) U/L ALT 23 (0-31) U/L Alkaline Phosphatase 130 H (39-117) U/L Troponin I High Sens < 2.7 < 2.7 (<3.5-17.0) ng/L B-Natriuretic Peptide 61 (<100) pg/mL Total Protein 7.0 (6.5-8.0) g/dL Albumin 4.6 (3.5-5.0) g/dL Influenza Type A (PCR) NEGATIVE (Negative) Influenza Type B (PCR) NEGATIVE (Negative) RSV RNA Qual (PCR) NEGATIVE (Negative) SARS-CoV-2 RNA (RT-PCR) NEGATIVE (Negative) 10/21/24 Range/Units 15:30 WBC (4.8-10.8) X10*3/uL RBC (4.20-5.50) X10*6/uL Hgb (12.0-16.0) g/dl Hct (37.0-47.0) % MCV (80.0-98.0) fL MCH (27.0-33.0) pg MCHC (31.0-35.0) g/dl RDW (11.0-16.0) % Plt Count (160-400) X10*3/uL MPV (9.4-12.3) fL Immature Gran % (Auto) (0.0-0.4) % Neut % (Auto) (45-73) % Lymph % (Auto) (20-40) % [place] % (Auto) (2-11) % Eos % (Auto) (0-4) % Baso % (Auto) (0-2) % Lymph # (Auto) (1.2-4.9) X10*3/uL [place] # (Auto) (0.1-1.2) X10*3/uL Eos # (Auto) (0.0-0.4) X10*3/uL Baso # (Auto) (0.0-0.2) X10*3/uL Abs Immat Gran (auto) (0.00-0.03) X10*3/uL Absolute Neuts (auto) (2.0-8.3) x10*3/uL Absolute Nucleated RBC (0.0-0.012) X10*3/uL Nucleated RBC % (auto) (0.0-0.2) /100WBC Sodium (135-145) mmol/L Potassium (3.3-5.1) mmol/L Chloride (96-108) mmol/L Carbon Dioxide (22-29) mmol/L Anion Gap (12-20) BUN (9-16) mg/dL Creatinine (0.5-1.4) mg/dL Estim Creat Clear Calc Estimated GFR Random Glucose (60-115) mg/dL Calcium (8.4-10.2) mg/dL Total Bilirubin (0.0-1.0) mg/dL AST (5-31) U/L ALT (0-31) U/L Alkaline Phosphatase (39-117) U/L Troponin I High Sens < 2.7 (<3.5-17.0) ng/L B-Natriuretic Peptide (<100) pg/mL Total Protein (6.5-8.0) g/dL Albumin (3.5-5.0) g/dL Influenza Type A (PCR) (Negative) Influenza Type B (PCR) (Negative) RSV RNA Qual (PCR) (Negative) SARS-CoV-2 RNA (RT-PCR) (Negative) Discharge Plan Discharge Clinical Impression: Atypical chest pain Patient Disposition: Home, Self-Care Instructions: Chest Pain (DC) Additional Instructions: _ DISCHARGE DIAGNOSES: Chest pain atypical in nature. Myocardial infarction or heart attack has been excluded HISTORY OF PRESENTATION: ?Chest pain chronic and intermittent with slight change in the character, pressure, today. EMERGENCY DEPARTMENT COURSE,TESTS, TREATMENTS: While in the ED today you had an x-ray EKG, troponin cardiac enzyme which is a heart attack test this or were all negative and reassuring. Lab work including blood counts electrolytes kidney function normal and reassuring DISCHARGE MEDICATIONS: ?[We have made no changes to your regular medication regimen] FOLLOW-UP: ?Call your primary or general physician soon as possible to discuss your symptoms, your ED visit and to discuss follow up plans Call your primary doctor for follow up continue with the previously scheduled outpatient stress test. We strongly recommend you call your hospital [place] where your left heart catheterization was performed 1 year ago to get those records this will help in your diagnosis INSTRUCTIONS ?& RETURN PRECAUTIONS: If any symptoms change first call your primary physician, if it is after-hours your primary doctors office should have a provider occupational therapist home based you can speak with. If the symptoms are severe or very concerning to you then call 911 or return to the ED. Return for severe or worsening chest pain Rene Hand MD Emergency Physician [facility] Prescriptions: No Action buspirone 5 mg tablet 10 mg PO ONCE sertraline 100 mg tablet 100 mg PO DAILY omeprazole 40 mg capsule,delayed release(DR/EC) 40 mg PO BID carvedilol 3.125 mg tablet 3.125 mg PO BID levothyroxine [Synthroid] 50 mcg tablet 50 mcg PO DAILY aspirin 81 mg tablet 81 mg PO DAILY rosuvastatin 20 mg tablet 20 mg PO DAILY ranolazine 500 mg tablet extended release 12 hr 500 mg PO BID desvenlafaxine succinate 50 mg tablet extended release 24 hr 50 mg PO DAILY Interventions: ED Discharge Assessment Last Done: 10/21/24 16:36 Discharge Date/Time: 10/21/24 16:37 Print Language: Pashto
[2024-10-21 12:49] LABS: MANUAL DIFF FLAG NO
[2024-10-21 12:51] LABS: Hematocrit 36.1 % (37.0-47.0); Hemoglobin 12.1 g/dl (12.0-16.0); Imm Gran Abs Auto 0.01 X10*3/uL (0.00-0.03); Imm Gran Pct Auto 0.1 % (0.0-0.4); Lymphocytes Absolute Auto 1.8 X10*3/uL (1.2-4.9); Mean Corpuscular HGB Conc 33.5 g/dl (31.0-35.0); Mean Corpuscular Hemoglobin 28.1 pg (27.0-33.0); Mean Corpuscular Volume 83.8 fL (80.0-98.0); NRBC Abs Auto 0.000 X10*3/uL (0.0-0.012); NRBC Pct Auto 0.0 /100WBC (0.0-0.2); Platelet Count 208 X10*3/uL (160-400); Red Blood Count 4.31 X10*6/uL (4.20-5.50); White Blood Count 6.8 X10*3/uL (4.8-10.8)
[2024-10-21 13:07] LABS: Alanine Aminotransferase 23 U/L (0-31); Albumin Level 4.6 g/dL (3.5-5.0); Alkaline Phosphatase 130 U/L (39-117); Anion Gap 11 (12-20); Aspartate Amino Transferase 28 U/L (5-31); Blood Urea Nitrogen 13 mg/dL (9-16); Calcium 9.2 mg/dL (8.4-10.2); Carbon Dioxide 28 mmol/L (22-29); Chloride 106 mmol/L (96-108); Creatinine Clr Calc Pharmacy 59.9; Estimated Glomerular Filt Rate > 60; Potassium 4.3 mmol/L (3.3-5.1); Sodium 141 mmol/L (135-145); Total Protein 7.0 g/dL (6.5-8.0)
[2024-10-21 13:12] LABS: B Type Natriuretic Peptide 61 pg/mL (<100)
[2024-10-21 13:14] LABS: Troponin-I High Sensitivity < 2.7 ng/L (<3.5-17.0)
[2024-10-21 13:42] LABS: Resp Syncy Virus RNA Qual PCR NEGATIVE (Negative); SARS COV2 PCR INHOUSE NEGATIVE (Negative)
[2024-10-21 14:12] LABS: Troponin-I High Sensitivity < 2.7 ng/L (<3.5-17.0)
--- OUTSIDE RECORDS SUMMARY | 2024-10-21 15:34 | XMS_ITS | Patient Health Record ---
Author Organization [facility] Address [address] [place] [id number] Care Team Providers Care In Home Caregiver Name Role Phone DERREK FORTE Primary Care Provider David Medina Jr Unavailable Allergies Allergen (clinical drug ingredient) [...] Problem Status W/U Status Risk Notes Problem 92328229 Epigastric pain (R10.13) Active confirmed Problem 11082993 Weight loss (R63.4) Active confirmed Problem 81693792 Diarrhea, unspecified type (R19.7) Active confirmed Plan Of Treatment Pending Test Test Name Order Date LIVER PROFILE 01/14/2018 LIPASE 01/14/2018 CBC w/o DIFF 01/14/2018 STOOL WBC 02/15/2017 OVA & PARASITES (O&P) 02/15/2017 CULTURE, STOOL 02/15/2017 XR GI SERIES 01/14/2018 Future Test Test Name Order Date UPPER GI ENDOSCOPY 01/11/2017 Next Appt Details Provider Name:David kaplan , 02/11/2025 11:10:00 AM, [address] [place] [address], [facility], [place], [address], Insurance Providers Payer Name Payer Address Payer Phone Subscriber Number Group Number Insured Name Patient Relationship to Insured Coverage Start Date Coverage End Date [employer] [address] [place] [phone] [id number] NEO WANG Self - patient is the insured Medical (General) History Medical History History ICD Code kidney stones right and left removed -19 80's coronary artery disease and stent placem ent 2014 colonoscopy within 10 years in [place], records to be obtained. Surgical History Surgery Date(Month/Year) cholecystectomy appendectomy for carcinoid
--- OUTSIDE RECORDS SUMMARY | 2024-10-21 15:34 | XMS_ITS | Patient Health Record ---
Author Organization [facility] - [address] Address [address] [place] [address] Care Team Providers Care Machine Inspector Name Role Phone Higinio CUMMINGS, Dr. Torres Primary Care Provider VIC Real Unavailable [phone] Allergies Allergen (clinical drug ingredient) Drug/Non Drug [...] W/U Status Risk Notes Problem Supraventricular tachycardia (3276654) Supraventricular tachycardia (I47.1) Active confirmed Problem Electrocardiogram abnormal (890727141) Abnormal EKG (R94.31) Active confirmed Problem Essential hypertension (34805395) Essential (primary) hypertension (I10) Active confirmed [facility]-44 7667- Problem Palpitations (77880819) Palpitations (R00.2) Active confirmed [facility]-44 7667- Problem 14871667 Paroxysmal supraventricular tachycardia (I47.1) Active confirmed [facility]-44 7667- Problem 20553608 Hyperlipidemia (E78.5) Active confirmed [facility]-44 7667- Problem 94474222 Paroxysmal ventricular tachycardia (I47.2) Active confirmed [facility]-44 7667- Problem 645181412 Atherosclerosis of coronary artery (I25.10) Active confirmed [facility]-44 7667- Problem Tachycardia (5031903) Tachycardia, unspecified (R00.0) Problem resolved confirmed [facility]-44 7667- Problem Chest pain (03280572) Chest Pain Unspecified (786.50) Problem resolved confirmed [facility]-44 7667- Plan Of Treatment No Information Insurance Providers Payer Name Payer Address Payer Phone Subscriber Number Group Number Insured Name Patient Relationship to Insured Coverage Start Date Coverage End Date [facility] [address] [address] [place], [place] [id number] Dora Barraza Self - patient is the insured Medical (General) History Medical History History ICD Code kidney stones Rt. Wrist sinus tachycardia chest pain angina (unstable) anxiety CAD GERD hyperlipidemia childhood illnesses of mumps, measles an d chickenpox palpitations hypertension-benign Surgical History Surgery Date(Month/Year) cholecystectomy Successful PTCA of the Prox. LAD IVET red ucing stenosis from 80%-0 08/16/11 Hospitalization History Reason Date(Month/Year) [facility] - angina 05/14/20
--- OUTSIDE RECORDS SUMMARY | 2024-10-21 15:35 | XMS_ITS | Data Portability ---
Author Organization [facility] Address [address] [place] [address] Assessment No assessment recorded. Plan of Treatment Reminders Order Date Submit Date Provider Last Modified By Organization Details Last Modified Time Details Appointments None recorded. Lab PTH (parathyroi d hormone), intact, serum or plasma 2024 025 ANGELA [facility], [address] [place], [address], 5 13:37:17 Mycobacteri um tuberculosi s stimulated gamma interferon, qual, blood 2024 025 ANGELA [facility], [address] [place], [address], 5 03:09:40 thyroid peroxidase (tpo) Ab, serum 2024 025 ANGELA [facility], [address] [place], [address], 5 03:09:45 thyroglobul in Ab, serum 2024 025 ANGELA [facility], [address] [place], [address], 5 03:09:44 CMP, serum or plasma 2023 025 ANGELA [facility], [address] [place], [address], 5 03:06:38 alkaline phosphatase isoenzymes, serum or plasma 2023 025 ANGELA [facility], [address] [place] [facility] [place], [address], 5 03:06:40 gamma-gluta myl transferase (ggt), serum 2023 025 ANGELA [facility], [address] [place], [address], 5 03:06:41 HbA1c (hemoglobin A1c), blood 2023 025 ANGELA [facility], [address] [place], [address], 5 03:06:41 urinalysis complete, reflex culture 2024 025 ANGELA [facility], [address] [place], [address], 5 03:06:38 lipid panel, serum 2023 025 ANGELA [facility], [address] [place], [address], 5 03:06:39 TSH + free T4, serum 2023 025 ANGELA [facility], [address] [place] [facility] [place], [address], 5 03:06:37 amylase + lipase, serum 2023 024 ANGELA [facility], [address] [place] [facility] [place], [address], 4 08:14:25 C reactive protein, QN, serum or plasma 2023 024 ANGELA [facility], [address] [place] [facility] [place], [address], 4 08:14:27 CMP, serum or plasma 2023 024 ANGELA [facility], [address] [place], [address], 4 08:14:24 CBC w/ auto diff 2023 024 ANGELA [facility], [address] [place], [address], 4 08:14:23 ESR (erythrocyt e sedimentati on rate), blood 2023 024 ANGELA [facility], [address] [place], [address], 4 08:14:26 HbA1c (hemoglobin A1c), blood 2022 024 ANGELA [facility], [address] [place] [facility] [place], [address], 4 03:06:53 microalbumi n/creatinin e, mass ratio, urine 2022 024 ANGELA [facility], [address] [place] [facility] [place], [address], 4 03:06:51 CBC w/ auto diff 2022 024 ANGELA [facility], [address] [place] [facility] [place], [address], 4 03:06:49 CMP, serum or plasma 2022 024 ANGELA [facility], [address] [place] [facility] [place], [address], 4 03:06:50 lipid panel, serum 2022 024 ANGELA [facility], [address] [place] [facility] [place], [address], 4 03:06:51 vitamin B12 + folate, serum or blood 2022 024 ANGELA [facility], [address] [place], [address], 03:06:52 Referral None recorded. Procedures None recorded. Surgeries None recorded. Imaging XR, abdomen - CPT: 61014; 73yo WF w/ upper/lower abdominal pain and diarrhea x10 days. 2023 024 [facility], [address] [place], [address], 17:03:35 Medication Orders levothyroxi ne 50 mcg tablet 2024 [facility] #91560, [address], [place], [id number], 13:59:29 diphenoxyla te-atropine 2.5 mg-0.025 mg tablet 2023 025 [facility] #09347, [address] [place], [id number], 13:57:00 sucralfate 1 gram tablet 2023 025 [facility] #20954, [address] [place], [place], [id number], 13:57:29 omeprazole 40 mg capsule,del ayed release 2023 024 [facility], [address] [place], [place], [id number], 16:38:31 sertraline 100 mg tablet 2023 024 [facility] #05156, [address], [place], [id number], 16:11:45 desvenlafax ine ER 50 mg tablet,exte nded release 24 hr 2023 [facility] #76833, [address], [id number], 4 16:11:46 ranolazine ER 500 mg tablet,exte nded release,12 hr 2023 024 [facility] #80232, [address], [id number], 4 16:11:45 rosuvastati n 20 mg tablet 2023 [facility] #07517, [address] [place], [id number], 4 16:11:44 buspirone 5 mg tablet 2023 [facility] #87524, [address], [place], [id number], 4 16:11:44 Patient TargetsNo targets recorded. Patient Instructions Encounter Date Encounter Id Patient Instructions Last Modified By Organization Details Last Modified Time 04/01/2024 [id number] We discussed the following important areas of your health at today's visit: 1. Any concerns about balance and falls. 2. Any concerns about bladder control including leaking of urine. 3. Any concerns about getting adequate exercise and physical activity. Supportive programs and services are available to help you develop and maintain healthy habits in these areas. Please visit [email or web address] for a listing of available resources. If you have any further questions or concerns regarding the above areas of your health, please discuss at your next primary care visit or, for more urgent concerns, call us at [address] [place] [address] ([phone]) to schedule an appointment. [email or web address] Not available 03/27/2024 09:36:14 04/11/2024 [id number] We discussed the following important areas of your health at today's visit: 1. Any concerns about balance and falls. 2. Any concerns about bladder control including leaking of urine. 3. Any concerns about getting adequate exercise and physical activity. Supportive programs and services are available to help you develop and maintain healthy habits in these areas. Please visit [email or web address] for a listing of available resources. If you have any further questions or concerns regarding the above areas of your health, please discuss at your next primary care visit or, for more urgent concerns, call us at [address] [place] [address] ([phone]) to schedule an appointment. Not available 04/10/2024 20:01:26 07/17/2024 [id number] We discussed the following important areas of your health at today's visit: 1. Any concerns about balance and falls. 2. Any concerns about bladder control including leaking of urine. 3. Any concerns about getting adequate exercise and physical activity. Supportive programs and services are available to help you develop and maintain healthy habits in these areas. Please visit [email or web address] for a listing of available resources. If you have any further questions or concerns regarding the above areas of your health, please discuss at your next primary care visit or, for more urgent concerns, call us at [address] [place] [address] ([phone]) to schedule an appointment. [email or web address] Not available 07/04/2024 12:15:47 Reason for Referral None Reported. Results Created Date Observation Date Name Description Value Unit Range Abnormal Flag Note LastModifiedBy Organization Detail LastModifiedTime 03/12/2003/12/2024 rapid SARS CoV + SARS CoV 2 Ag, QL IA, respi rator y speci men rapid SARS CoV 2 Ag, QL IA, respiratory specimen negati ve Not Available [facility] [address] [place], [address], 03/12/2024 11:52:40 03/12/2003/12/2024 rapid flu (A+B) Flu negati ve Not Available [facility] [address] [place], [address], 03/12/2024 11:52:39 03/26/20 24 03/26/2024 CBC WITH DIFFE RENTI AL/PL ATELE T WBC 7.1 x10e3 /uL 3.4-10 .8 normal Not Available [facility] ([facility]) [address] [place], [address], 03/28/2024 03:06:49 03/26/20 24 03/26/2024 CBC WITH DIFFE RENTI AL/PL ATELE T RBC 4.58 x10e6 /uL 3.77-5 .28 normal Not Available [facility] ([facility]) [address] [place], [address], 03/28/2024 03:06:49 03/26/20 24 03/26/2024 CBC WITH DIFFE RENTI AL/PL ATELE T hemoglobin 12.8 g/dL 11.1-1 5.9 normal Not Available [facility] ([facility]) [address] [place], [address], 03/28/2024 03:06:49 03/26/20 24 03/26/2024 CBC WITH DIFFE RENTI AL/PL ATELE T hematocrit 40.3 % 34.0-4 6.6 normal Not Available [facility] ([facility]) [address] [place], [address], 03/28/2024 03:06:49 03/26/20 24 03/26/2024 CBC WITH DIFFE RENTI AL/PL ATELE T MCV 88 fL 79-97 normal Not Available [facility] ([facility]) [address] [place], [address], 03/28/2024 03:06:49 03/26/20 24 03/26/2024 CBC WITH DIFFE RENTI AL/PL ATELE T MCH 27.9 pg 26.6-3 3.0 normal Not Available [facility] ([facility]) [address] [place], [address], 03/28/2024 03:06:49 03/26/20 24 03/26/2024 CBC WITH DIFFE RENTI AL/PL ATELE T MCHC 31.8 g/dL 31.5-3 5.7 normal Not Available [facility] ([facility]) [address] [facility], [place], [address], 03/28/2024 03:06:49 03/26/20 24 03/26/2024 CBC WITH DIFFE RENTI AL/PL ATELE T RDW 12.9 % 11.7-1 5.4 Not Available [facility] ([facility]) [address] [facility], [place], [address], 03/28/2024 03:06:49 03/26/20 24 03/26/2024 CBC WITH DIFFE RENTI AL/PL ATELE T platelets 251 x10e3 /uL 150-45 0 normal Not Available [facility] ([facility]) [address] [facility], [place], [address], 03/28/2024 03:06:49 03/26/20 24 03/26/2024 CBC WITH DIFFE RENTI AL/PL ATELE T neutrophils 57 % not estab. normal Not Available [facility] ([facility]) [address] [facility], [place], [address], 03/28/2024 03:06:49 03/26/20 24 03/26/2024 CBC WITH DIFFE RENTI AL/PL ATELE T lymphs 24 % not estab. normal Not Available [facility] ([facility]) [address] [facility], [place], [address], 03/28/2024 03:06:49 03/26/20 24 03/26/2024 CBC WITH DIFFE RENTI AL/PL ATELE T monocytes 9 % not estab. normal Not Available [facility] ([facility]) [address] [place] [address], [place], [address], 03/28/2024 03:06:49 03/26/20 24 03/26/2024 CBC WITH DIFFE RENTI AL/PL ATELE T eos 9 % not estab. normal Not Available [facility] ([facility]) [address] [facility], [place], [address], 03/28/2024 03:06:49 03/26/20 24 03/26/2024 CBC WITH DIFFE RENTI AL/PL ATELE T basos 1 % not estab. normal Not Available [facility] ([facility]) [address] [facility], [place], [address], 03/28/2024 03:06:49 03/26/20 24 03/26/2024 CBC WITH DIFFE RENTI AL/PL ATELE T immature cells CHARGE MACHINE OPERATOR Not Available [facility] ([facility]) [address] [place], [address], 03/28/2024 03:06:49 03/26/20 24 03/26/2024 CBC WITH DIFFE RENTI AL/PL ATELE T neutrophils (absolute) 4.0 x10e3 /uL 1.4-7. 0 normal Not Available [facility] ([facility]) [address] [place], [address], 03/28/2024 03:06:49 03/26/20 24 03/26/2024 CBC WITH DIFFE RENTI AL/PL ATELE T lymphs (absolute) 1.7 x10e3 /uL 0.7-3. 1 normal Not Available [facility] ([facility]) [address] [place], [address], 03/28/2024 03:06:49 03/26/20 24 03/26/2024 CBC WITH DIFFE RENTI AL/PL ATELE T monocytes(ab solute) 0.6 x10e3 /uL 0.1-0. 9 normal Not Available [facility] ([facility]) [address] [place], [address], 03/28/2024 03:06:49 03/26/20 24 03/26/2024 CBC WITH DIFFE RENTI AL/PL ATELE T eos (absolute) 0.6 x10e3 /uL 0.0-0. 4 above high normal Not Available [facility] ([facility]) [address] [facility], [place], [address], 03/28/2024 03:06:49 03/26/20 24 03/26/2024 CBC WITH DIFFE RENTI AL/PL ATELE T baso (absolute) 0.1 x10e3 /uL 0.0-0. 2 normal Not Available [facility] ([facility]) [address] [facility], [place], [address], 03/28/2024 03:06:49 03/26/20 24 03/26/2024 CBC WITH DIFFE RENTI AL/PL ATELE T immature granulocytes 0 % not estab. Not Available [facility] ([facility]) [address] [facility], [place], [address], 03/28/2024 03:06:49 03/26/20 24 03/26/2024 CBC WITH DIFFE RENTI AL/PL ATELE T immature grans (abs) 0.0 x10e3 /uL 0.0-0. 1 Not Available [facility] ([facility]) [address] [place], [address], 03/28/2024 03:06:49 03/26/20 24 03/26/2024 CBC WITH DIFFE RENTI AL/PL ATELE T NRBC CHARGE MACHINE OPERATOR Not Available [facility] ([facility]) [address] [place], [address], 03/28/2024 03:06:49 03/26/20 24 03/26/2024 CBC WITH DIFFE RENTI AL/PL ATELE T hematology comments: CHARGE MACHINE OPERATOR Not Available [facility] ([facility]) [address] [place], [address], 03/28/2024 03:06:49 03/26/20 24 03/27/2024 COMP. METAB OLIC PANEL (14) glucose 96 mg/dL 70-99 normal Not Available [facility] ([facility]) [address] [facility] [place], [address], 03/28/2024 03:06:50 03/26/20 24 03/27/2024 COMP. METAB OLIC PANEL (14) BUN 13 mg/dL 8-27 normal Not Available [facility] ([facility]) [address] [facility] [place], [address], 03/28/2024 03:06:50 03/26/20 24 03/27/2024 COMP. METAB OLIC PANEL (14) creatinine 0.88 mg/dL 0.57-1 .00 normal Not Available [facility] ([facility]) [address] [facility] [place], [address], 03/28/2024 03:06:50 03/26/20 24 03/27/2024 COMP. METAB OLIC PANEL (14) eGFR 70 mL/mi n/1.7 3 >59 normal Not Available [facility] ([facility]) [address] [facility] [place], [address], 03/28/2024 03:06:50 03/26/20 24 03/27/2024 COMP. METAB OLIC PANEL (14) BUN/creatini ne ratio 15 12-28 normal Not Available [facility] ([facility]) [address] [place], [address], 03/28/2024 03:06:50 03/26/20 24 03/27/2024 COMP. METAB OLIC PANEL (14) sodium 142 mmol/ L 134-14 4 normal Not Available [facility] ([facility]) [address] [facility] [place], [address], 03/28/2024 03:06:50 03/26/20 24 03/27/2024 COMP. METAB OLIC PANEL (14) potassium 4.1 mmol/ L 3.5-5. 2 normal Not Available [facility] ([facility]) [address] [place], [address], 03/28/2024 03:06:50 03/26/20 24 03/27/2024 COMP. METAB OLIC PANEL (14) chloride 105 mmol/ L 96-106 normal Not Available [facility] ([facility]) [address] [place], [address], 03/28/2024 03:06:50 03/26/20 24 03/27/2024 COMP. METAB OLIC PANEL (14) carbon dioxide, total 22 mmol/ L 20-29 normal Not Available [facility] ([facility]) [address] [place], [address], 03/28/2024 03:06:50 03/26/20 24 03/27/2024 COMP. METAB OLIC PANEL (14) calcium 9.3 mg/dL 8.7-10 .3 normal Not Available [facility] ([facility]) [address] [place], [address], 03/28/2024 03:06:50 03/26/20 24 03/27/2024 COMP. METAB OLIC PANEL (14) protein, total 6.6 g/dL 6.0-8. 5 normal Not Available [facility] ([facility]) [address] [place], [address], 03/28/2024 03:06:50 03/26/20 24 03/27/2024 COMP. METAB OLIC PANEL (14) albumin 4.6 g/dL 3.8-4. 8 normal Not Available [facility] ([facility]) [address] [place], [address], 03/28/2024 03:06:50 03/26/20 24 03/27/2024 COMP. METAB OLIC PANEL (14) globulin, total 2.0 g/dL 1.5-4. 5 Not Available [facility] ([facility]) [address] [place], [address], 03/28/2024 03:06:50 03/26/20 24 03/27/2024 COMP. METAB OLIC PANEL (14) bilirubin, total 0.6 mg/dL 0.0-1. 2 normal Not Available [facility] ([facility]) [address] [facility], [place], [address], 03/28/2024 03:06:50 03/26/20 24 03/27/2024 COMP. METAB OLIC PANEL (14) alkaline phosphatase 144 IU/L 44-121 above high normal Not Available [facility] ([facility]) [address] [facility] [place], [address], 03/28/2024 03:06:50 03/26/20 24 03/27/2024 COMP. METAB OLIC PANEL (14) AST (SGOT) 20 IU/L 0-40 normal Not Available [facility] ([facility]) [address] [place], [address], 03/28/2024 03:06:50 03/26/20 24 03/27/2024 COMP. METAB OLIC PANEL (14) ALT (SGPT) 18 IU/L 0-32 normal Not Available [facility] ([facility]) [address] [facility], [place], [address], 03/28/2024 03:06:50 03/26/20 24 03/27/2024 LIPID PANEL cholesterol, total 176 mg/dL 100-19 9 normal Not Available [facility] ([facility]) [address] [place], [address], 03/28/2024 03:06:51 03/26/20 24 03/27/2024 LIPID PANEL triglyceride s 113 mg/dL 0-149 normal Not Available [facility] ([facility]) [address] [place], [address], 03/28/2024 03:06:51 03/26/20 24 03/27/2024 LIPID PANEL HDL cholesterol 61 mg/dL >39 normal Not Available [facility]) [address] [facility], [place], [address], 03/28/2024 03:06:51 03/26/20 24 03/27/2024 LIPID PANEL VLDL cholesterol tess 20 mg/dL 5-40 Not Available [facility] ([facility]) [address] [facility], [place], [address], 03/28/2024 03:06:51 03/26/20 24 03/27/2024 LIPID PANEL LDL chol calc ([facility]) 95 mg/dL 0-99 Not Available [facility]) [address] [facility], [place], [address], 03/28/2024 03:06:51 03/26/20 24 03/27/2024 LIPID PANEL LDL calc comment: CHARGE MACHINE OPERATOR Not Available [facility] ([facility]) [address] [facility], [place], [address], 03/28/2024 03:06:51 03/26/20 24 03/27/2024 ALBUM IN/CR EAT RATIO , RANDO M UR creatinine, urine 92.1 mg/dL not estab. normal Not Available [facility] ([facility]) [address] [facility], [place], [address], 03/28/2024 03:06:51 03/26/20 24 03/27/2024 ALBUM IN/CR EAT RATIO , RANDO M UR albumin, urine 10.5 ug/mL not estab. Not Available [facility] ([facility]) [address] [place], [address], 03/28/2024 03:06:51 03/26/20 24 03/27/2024 ALBUM IN/CR EAT RATIO , RANDO M UR alb/creat ratio 11 mg/g_ creat 0-29 Avril l: 0 - 29 Moder ately incre ased: 30 - 300 Sever lauren incre ased: >300 Not Available [facility] ([facility]) [address] [facility] [place], [address], 03/28/2024 03:06:51 03/26/20 24 03/27/2024 VITAM IN B12 AND FOLAT E vitamin B12 429 pg/mL 232-12 45 normal Not Available [facility] ([facility]) [address] [facility] [place], [address], 03/28/2024 03:06:52 03/26/20 24 03/27/2024 VITAM IN B12 AND FOLAT E folate (folic acid), serum >20.0 NG/mL >3.0 A serum folat e jil ntrat ion of less than 3.1 ng/mL is consi dered to repre sent clini tess defic iency . Not Available [facility] ([facility]) [address] [place], [address], 03/28/2024 03:06:52 03/26/20 24 03/27/2024 HEMOG LOBIN A1C hemoglobin A1C 5.8 % 4.8-5. 6 above high normal Predi abete s: 5.7 - 6.4 Diabe joby: >6.4 Glyce alberto contr ol for adult s with diabe joby: <7.0 Not Available [facility] ([facility]) [address] [place], [address], 03/28/2024 03:06:53 03/26/20 24 03/28/2024 ALK PHOS ISOEN ZYME alkaline phosphatase 145 IU/L 44-121 above high normal Not Available [facility] ([facility]) [address] [place], [address], 04/09/2024 03:06:31 03/26/20 24 04/08/2024 ALK PHOS ISOEN ZYME liver fraction: 42 % 18-85 Not Available [facility] ([facility]) [address] [place], [address], 04/09/2024 03:06:31 03/26/20 24 04/08/2024 ALK PHOS ISOEN ZYME bone fraction: 38 % 14-68 Not Available [facility] ([facility]) [address] [facility], [place], [address], 04/09/2024 03:06:31 03/26/20 24 04/08/2024 ALK PHOS [...] mucos al lesio n. Not Available [facility] ([facility]) [address] [facility], [place], [address], 04/09/2024 03:06:31 04/11/20 24 04/12/2024 CBC WITH DIFFE RENTI AL/PL ATELE T WBC 6.4 x10e3 /uL 3.4-10 .8 normal Not Available [facility] ([facility]) [address] [facility], [place], [address], 04/12/2024 08:14:23 04/11/20 24 04/12/2024 CBC WITH DIFFE RENTI AL/PL ATELE T RBC 4.10 x10e6 /uL 3.77-5 .28 normal Not Available [facility] ([facility]) [address] [facility], [place], [address], 04/12/2024 08:14:23 04/11/20 24 04/12/2024 CBC WITH DIFFE RENTI AL/PL ATELE T hemoglobin 11.4 g/dL 11.1-1 5.9 normal Not Available [facility] ([facility]) [address] [facility], [place], [address], 04/12/2024 08:14:23 04/11/20 24 04/12/2024 CBC WITH DIFFE RENTI AL/PL ATELE T hematocrit 35.3 % 34.0-4 6.6 normal Not Available [facility] ([facility]) [address] [facility], [place], [address], 04/12/2024 08:14:23 04/11/20 24 04/12/2024 CBC WITH DIFFE RENTI AL/PL ATELE T MCV 86 fL 79-97 normal Not Available [facility] ([facility]) [address] [place], [address], 04/12/2024 08:14:23 04/11/20 24 04/12/2024 CBC WITH DIFFE RENTI AL/PL ATELE T MCH 27.8 pg 26.6-3 3.0 normal Not Available [facility] ([facility]) [address] [place], [address], 04/12/2024 08:14:23 04/11/20 24 04/12/2024 CBC WITH DIFFE RENTI AL/PL ATELE T MCHC 32.3 g/dL 31.5-3 5.7 normal Not Available [facility] ([facility]) [address] [place], [address], 04/12/2024 08:14:23 04/11/20 24 04/12/2024 CBC WITH DIFFE RENTI AL/PL ATELE T RDW 13.0 % 11.7-1 5.4 Not Available [facility] ([facility]) [address] [facility], [place], [address], 04/12/2024 08:14:23 04/11/20 24 04/12/2024 CBC WITH DIFFE RENTI AL/PL ATELE T platelets 179 x10e3 /uL 150-45 0 normal Not Available [facility] ([facility]) [address] [facility], [place], [address], 04/12/2024 08:14:23 04/11/20 24 04/12/2024 CBC WITH DIFFE RENTI AL/PL ATELE T neutrophils 62 % not estab. normal Not Available [facility] ([facility]) [address] [facility], [place], [address], 04/12/2024 08:14:23 04/11/20 24 04/12/2024 CBC WITH DIFFE RENTI AL/PL ATELE T lymphs 21 % not estab. normal Not Available [facility] ([facility]) [address] [facility], [place], [address], 04/12/2024 08:14:23 04/11/20 24 04/12/2024 CBC WITH DIFFE RENTI AL/PL ATELE T monocytes 10 % not estab. normal Not Available [facility] ([facility]) [address] [facility], [place], [address], 04/12/2024 08:14:23 04/11/20 24 04/12/2024 CBC WITH DIFFE RENTI AL/PL ATELE T eos 6 % not estab. normal Not Available [facility] ([facility]) [address] [facility], [place], [address], 04/12/2024 08:14:23 04/11/20 24 04/12/2024 CBC WITH DIFFE RENTI AL/PL ATELE T basos 1 % not estab. normal Not Available [facility] ([facility]) [address] [facility], [place], [address], 04/12/2024 08:14:23 04/11/20 24 04/12/2024 CBC WITH DIFFE RENTI AL/PL ATELE T immature cells CHARGE MACHINE OPERATOR Not Available [facility] ([facility]) [address] [facility], [place], [address], 04/12/2024 08:14:23 04/11/20 24 04/12/2024 CBC WITH DIFFE RENTI AL/PL ATELE T neutrophils (absolute) 4.0 x10e3 /uL 1.4-7. 0 normal Not Available [facility] ([facility]) [address] [place], [address], 04/12/2024 08:14:23 04/11/20 24 04/12/2024 CBC WITH DIFFE RENTI AL/PL ATELE T lymphs (absolute) 1.4 x10e3 /uL 0.7-3. 1 normal Not Available [facility] ([facility]) [address] [place], [address], 04/12/2024 08:14:23 04/11/20 24 04/12/2024 CBC WITH DIFFE RENTI AL/PL ATELE T monocytes(ab solute) 0.6 x10e3 /uL 0.1-0. 9 normal Not Available [facility] ([facility]) [address] [place], [address], 04/12/2024 08:14:23 04/11/20 24 04/12/2024 CBC WITH DIFFE RENTI AL/PL ATELE T eos (absolute) 0.4 x10e3 /uL 0.0-0. 4 normal Not Available [facility] ([facility]) [address] [place], [address], 04/12/2024 08:14:23 04/11/20 24 04/12/2024 CBC WITH DIFFE RENTI AL/PL ATELE T baso (absolute) 0.1 x10e3 /uL 0.0-0. 2 normal Not Available [facility] ([facility]) [address] [facility], [place], [address], 04/12/2024 08:14:23 04/11/20 24 04/12/2024 CBC WITH DIFFE RENTI AL/PL ATELE T immature granulocytes 0 % not estab. Not Available [facility] ([facility]) [address] [facility], [place], [address], 04/12/2024 08:14:23 04/11/20 24 04/12/2024 CBC WITH DIFFE RENTI AL/PL ATELE T immature grans (abs) 0.0 x10e3 /uL 0.0-0. 1 Not Available [facility] ([facility]) [address] [facility], [place], [address], 04/12/2024 08:14:23 04/11/20 24 04/12/2024 CBC WITH DIFFE RENTI AL/PL ATELE T NRBC CHARGE MACHINE OPERATOR Not Available [facility] ([facility]) [address] [facility], [place], [address], 04/12/2024 08:14:23 04/11/20 24 04/12/2024 CBC WITH DIFFE RENTI AL/PL ATELE T hematology comments: CHARGE MACHINE OPERATOR Not Available [facility] ([facility]) [address] [facility], [place], [address], 04/12/2024 08:14:23 04/11/20 24 04/12/2024 COMP. METAB OLIC PANEL (14) glucose 91 mg/dL 70-99 normal Not Available [facility] ([facility]) [address] [facility], [place], [address], 04/12/2024 08:14:24 04/11/20 24 04/12/2024 COMP. METAB OLIC PANEL (14) BUN 12 mg/dL 8-27 normal Not Available [facility] ([facility]) [address] [facility], [place], [address], 04/12/2024 08:14:24 04/11/20 24 04/12/2024 COMP. METAB OLIC PANEL (14) creatinine 0.73 mg/dL 0.57-1 .00 normal Not Available [facility] ([facility]) [address] [facility], [place], [address], 04/12/2024 08:14:24 04/11/20 24 04/12/2024 COMP. METAB OLIC PANEL (14) eGFR 87 mL/mi n/1.7 3 >59 normal Not Available [facility] ([facility]) [address] [facility], [place], [address], 04/12/2024 08:14:24 04/11/20 24 04/12/2024 COMP. METAB OLIC PANEL (14) BUN/creatini ne ratio 16 -28 normal Not Available [facility] ([facility]) [address] [facility], [place], [address], 04/12/2024 08:14:24 04/11/20 24 04/12/2024 COMP. METAB OLIC PANEL (14) sodium 141 mmol/ L 134-14 4 normal Not Available [facility] ([facility]) [address] [facility], [place], [address], 04/12/2024 08:14:24 04/11/20 24 04/12/2024 COMP. METAB OLIC PANEL (14) potassium 3.4 mmol/ L 3.5-5. 2 below low normal Not Available [facility] ([facility]) [address] [facility], [place], [address], 04/12/2024 08:14:24 04/11/20 24 04/12/2024 COMP. METAB OLIC PANEL (14) chloride 104 mmol/ L 96-106 normal Not Available [facility] ([facility]) [address] [facility], [place], [address], 04/12/2024 08:14:24 04/11/20 24 04/12/2024 COMP. METAB OLIC PANEL (14) carbon dioxide, total 23 mmol/ L 20-29 normal Not Available [facility] ([facility]) [address] [facility] [place], [address], 04/12/2024 08:14:24 04/11/20 24 04/12/2024 COMP. METAB OLIC PANEL (14) calcium 9.0 mg/dL 8.7-10 .3 normal Not Available [facility] ([facility]) [address] [facility] [place], [address], 04/12/2024 08:14:24 04/11/20 24 04/12/2024 COMP. METAB OLIC PANEL (14) protein, total 6.1 g/dL 6.0-8. 5 normal Not Available [facility] ([facility]) [address] [facility] [place], [address], 04/12/2024 08:14:24 04/11/20 24 04/12/2024 COMP. METAB OLIC PANEL (14) albumin 4.3 g/dL 3.8-4. 8 normal Not Available [facility] ([facility]) [address] [facility] [place], [address], 04/12/2024 08:14:24 04/11/20 24 04/12/2024 COMP. METAB OLIC PANEL (14) globulin, total 1.8 g/dL 1.5-4. 5 Not Available [facility] ([facility]) [address] [facility] [place], [address], 04/12/2024 08:14:24 04/11/20 24 04/12/2024 COMP. METAB OLIC PANEL (14) bilirubin, total 0.7 mg/dL 0.0-1. 2 normal Not Available [facility] ([facility]) [address] [facility] [place], [address], 04/12/2024 08:14:24 04/11/20 24 04/12/2024 COMP. METAB OLIC PANEL (14) alkaline phosphatase 134 IU/L 44-121 above high normal Not Available [facility] ([facility]) [address] [facility] [place], [address], 04/12/2024 08:14:24 04/11/20 24 04/12/2024 COMP. METAB OLIC PANEL (14) AST (SGOT) 20 IU/L 0-40 normal Not Available [facility] ([facility]) [address] [facility] [place], [address], 04/12/2024 08:14:24 04/11/20 24 04/12/2024 COMP. METAB OLIC PANEL (14) ALT (SGPT) 17 IU/L 0-32 normal Not Available [facility] ([facility]) [address] [facility] [place], [address], 04/12/2024 08:14:24 04/11/20 24 04/12/2024 MATHEW+L IPASE amylase 35 U/L 31-110 normal Not Available [facility] ([facility]) [address] [facility] [place], [address], 04/12/2024 08:14:25 04/11/20 24 04/12/2024 MATHEW+L IPASE lipase 11 U/L 14-85 below low normal Not Available [facility] ([facility]) [address] [facility] [place], [address], 04/12/2024 08:14:25 04/11/20 24 04/12/2024 SEDIM ENTAT ION RATE- WESTE RGREN sedimentatio n rate-westerg ema 22 mm/HR 0-40 normal Not Available [facility] ([facility]) [address] [facility] [place], [address], 04/12/2024 08:14:26 04/11/20 24 04/12/2024 C-AMRY ALICE CTIVE PROTE IN, QUANT C-reactive protein, quant 5 mg/L 0-10 normal Not Available [facility] ([facility]) [address] [facility] [place], [address], 04/12/2024 08:14:26 06/26/1906/26/2024 TSH+F REE T4 TSH 3.230 uIU/m L 0.450- 4.500 normal Not Available [facility] ([facility]) [address] [facility] [place], [address], 06/30/2024 03:06:37 06/26/19 25 06/26/2024 TSH+F REE T4 T4,free(dire ct) 0.79 NG/dL 0.82-1 .77 below low normal Not Available [facility] ([facility]) [address] [facility] [place], [address], 06/30/2024 03:06:37 06/26/19 25 06/26/2024 COMP. METAB OLIC PANEL (14) glucose 94 mg/dL 70-99 normal Not Available [facility] ([facility]) [address] [facility] [place], [address], 06/30/2024 03:06:38 06/26/1906/26/2024 COMP. METAB OLIC PANEL (14) BUN 11 mg/dL 8-27 normal Not Available [facility] ([facility]) [address] [place], [address], 06/30/2024 03:06:38 06/26/19 25 06/26/2024 COMP. METAB OLIC PANEL (14) creatinine 0.87 mg/dL 0.57-1 .00 normal Not Available [facility] ([facility]) [address] [facility] [place], [address], 06/30/2024 03:06:38 06/26/19 25 06/26/2024 COMP. METAB OLIC PANEL (14) eGFR 70 mL/mi n/1.7 3 >59 normal Not Available [facility] ([facility]) [address] [place], [address], 06/30/2024 03:06:38 06/26/19 25 06/26/2024 COMP. METAB OLIC PANEL (14) BUN/creatini ne ratio 13 12-28 normal Not Available [facility] ([facility]) [address] [facility] [place], [address], 06/30/2024 03:06:38 06/26/19 25 06/26/2024 COMP. METAB OLIC PANEL (14) sodium 141 mmol/ L 134-14 4 normal Not Available [facility] ([facility]) [address] [facility] [place], [address], 06/30/2024 03:06:38 06/26/19 25 06/26/2024 COMP. METAB OLIC PANEL (14) potassium 4.0 mmol/ L 3.5-5. 2 normal Not Available [facility] ([facility]) [address] [facility] [place], [address], 06/30/2024 03:06:38 06/26/19 25 06/26/2024 COMP. METAB OLIC PANEL (14) chloride 104 mmol/ L 96-106 normal Not Available [facility] ([facility]) [address] [place], [address], 06/30/2024 03:06:38 06/26/19 25 06/26/2024 COMP. METAB OLIC PANEL (14) carbon dioxide, total 23 mmol/ L 20-29 normal Not Available [facility] ([facility]) [address] [place], [address], 06/30/2024 03:06:38 06/26/19 25 06/26/2024 COMP. METAB OLIC PANEL (14) calcium 9.0 mg/dL 8.7-10 .3 normal Not Available [facility] ([facility]) [address] [place], [address], 06/30/2024 03:06:38 06/26/19 25 06/26/2024 COMP. METAB OLIC PANEL (14) protein, total 6.3 g/dL 6.0-8. 5 normal Not Available [facility] ([facility]) [address] [facility] [place], [address], 06/30/2024 03:06:38 06/26/19 25 06/26/2024 COMP. METAB OLIC PANEL (14) albumin 4.2 g/dL 3.8-4. 8 normal Not Available [facility] ([facility]) [address] [facility] [place], [address], 06/30/2024 03:06:38 06/26/19 25 06/26/2024 COMP. METAB OLIC PANEL (14) globulin, total 2.1 g/dL 1.5-4. 5 Not Available [facility] ([facility]) [address] [facility] [place], [address], 06/30/2024 03:06:38 06/26/19 25 06/26/2024 COMP. METAB OLIC PANEL (14) bilirubin, total 0.5 mg/dL 0.0-1. 2 normal Not Available [facility] ([facility]) [address] [place], [address], 06/30/2024 03:06:38 06/26/19 25 06/26/2024 COMP. METAB OLIC PANEL (14) alkaline phosphatase 133 IU/L 44-121 above high normal Not Available [facility] ([facility]) [address] [place], [address], 06/30/2024 03:06:38 06/26/19 25 06/26/2024 COMP. METAB OLIC PANEL (14) AST (SGOT) 20 IU/L 0-40 normal Not Available [facility] ([facility]) [address] [place], [address], 06/30/2024 03:06:38 06/26/19 25 06/26/2024 COMP. METAB OLIC PANEL (14) ALT (SGPT) 12 IU/L 0-32 normal Not Available [facility] ([facility]) [address] [facility], [place], [address], 06/30/2024 03:06:38 06/26/19 25 06/26/2024 UA/M W/RFL X CULTU RE, ROUTI NE specific gravity 1.015 1.005- 1.030 normal Not Available [facility] ([facility]) [address] [facility], [place], [address], 06/30/2024 03:06:38 06/26/1906/26/2024 UA/M W/RFL X CULTU RE, ROUTI NE pH 6.5 5.0-7. 5 normal Not Available [facility] ([facility]) [address] [facility], [place], [address], 06/30/2024 03:06:38 06/26/19 25 06/26/2024 UA/M W/RFL X CULTU RE, ROUTI NE urine-color YELLOW yellow Not Available [facility] ([facility]) [address] [facility], [place], [address], 06/30/2024 03:06:38 06/26/19 25 06/26/2024 UA/M W/RFL X CULTU RE, ROUTI NE appearance CLEAR clear Not Available [facility] ([facility]) [address] [facility], [place], [address], 06/30/2024 03:06:38 06/26/19 25 06/26/2024 UA/M W/RFL X CULTU RE, ROUTI NE WBC esterase 1+ negati ve abnormal Not Available [facility] ([facility]) [address] [facility], [place], [address], 06/30/2024 03:06:38 06/26/19 25 06/26/2024 UA/M W/RFL X CULTU RE, ROUTI NE protein TRACE negati ve/tra ce Not Available [facility] ([facility]) [address] [facility], [place], [address], 06/30/2024 03:06:38 06/26/19 25 06/26/2024 UA/M W/RFL X CULTU RE, ROUTI NE glucose NEGATI VE negati ve Not Available [facility] ([facility]) [address] [facility], [place], [address], 06/30/2024 03:06:38 06/26/19 25 06/26/2024 UA/M W/RFL X CULTU RE, ROUTI NE ketones NEGATI VE negati ve Not Available [facility] ([facility]) [address] [facility], [place], [address], 06/30/2024 03:06:38 06/26/19 25 06/26/2024 UA/M W/RFL X CULTU RE, ROUTI NE occult blood TRACE negati ve abnormal Not Available [facility] ([facility]) [address] [facility], [place], [address], 06/30/2024 03:06:38 06/26/19 25 06/26/2024 UA/M W/RFL X CULTU RE, ROUTI NE bilirubin NEGATI VE negati ve Not Available [facility] ([facility]) [address] [place], [address], 06/30/2024 03:06:38 06/26/19 25 06/26/2024 UA/M W/RFL X CULTU RE, ROUTI NE urobilinogen ,semi-qn 1.0 mg/dL 0.2-1. 0 normal Not Available [facility] ([facility]) [address] [place], [address], 06/30/2024 03:06:38 06/26/19 25 06/26/2024 UA/M W/RFL X CULTU RE, ROUTI NE nitrite, urine NEGATI VE negati ve Not Available [facility] ([facility]) [address] [facility], [place], [address], 06/30/2024 03:06:38 06/26/19 25 06/26/2024 UA/M W/RFL X CULTU RE, ROUTI NE microscopic examination SEE BELOW: Micro dede deleon was indic ated and was perfo rmed. Not Available [facility] ([facility]) [address] [facility], [place], [address], 06/30/2024 03:06:38 06/26/19 25 06/26/2024 UA/M W/RFL X CULTU RE, ROUTI NE WBC NONE SEEN /hpf 0 - 5 Not Available [facility] ([facility]) [address] [facility], [place], [address], 06/30/2024 03:06:38 06/26/19 25 06/26/2024 UA/M W/RFL X CULTU RE, ROUTI NE RBC 3-10 /hpf 0 - 2 abnormal Not Available [facility] ([facility]) [address] [facility], [place], [address], 06/30/2024 03:06:38 06/26/19 25 06/26/2024 UA/M W/RFL X CULTU RE, ROUTI NE epithelial cells (non renal) 0-10 /hpf 0 - 10 Not Available [facility] ([facility]) [address] [facility], [place], [address], 06/30/2024 03:06:38 06/26/19 25 06/26/2024 UA/M W/RFL X CULTU RE, ROUTI NE epithelial cells (renal) CHARGE MACHINE OPERATOR Not Available [facility] ([facility]) [address] [place], [address], 06/30/2024 03:06:38 06/26/19 25 06/26/2024 UA/M W/RFL X CULTU RE, ROUTI NE casts NONE SEEN /lpf none seen Not Available [facility] ([facility]) [address], [place], [address], 06/30/2024 03:06:38 06/26/19 25 06/26/2024 UA/M W/RFL X CULTU RE, ROUTI NE cast type CHARGE MACHINE OPERATOR Not Available [facility] ([facility]) [address], [place], [address], 06/30/2024 03:06:38 06/26/19 25 06/26/2024 UA/M W/RFL X CULTU RE, ROUTI NE crystals CHARGE MACHINE OPERATOR Not Available [facility] ([facility]) [address], [place], [address], 06/30/2024 03:06:38 06/26/19 25 06/26/2024 UA/M W/RFL X CULTU RE, ROUTI NE crystal type CHARGE MACHINE OPERATOR Not Available [facility] ([facility]) [address] [facility], [place], [address], 06/30/2024 03:06:38 06/26/19 25 06/26/2024 UA/M W/RFL X CULTU RE, ROUTI NE mucus threads CHARGE MACHINE OPERATOR Not Available [facility] ([facility]) [address] [facility], [place], [address], 06/30/2024 03:06:38 06/26/19 25 06/26/2024 UA/M W/RFL X CULTU RE, ROUTI NE bacteria NONE SEEN none seen/f ew Not Available [facility] ([facility]) [address] [facility], [place], [address], 06/30/2024 03:06:38 06/26/19 25 06/26/2024 UA/M W/RFL X CULTU RE, ROUTI NE yeast CHARGE MACHINE OPERATOR Not Available [facility] ([facility]) [address] [facility], [place], [address], 06/30/2024 03:06:38 06/26/19 25 06/26/2024 UA/M W/RFL X CULTU RE, ROUTI NE trichomonas CHARGE MACHINE OPERATOR Not Available [facility] ([facility]) [address] [facility], [place], [address], 06/30/2024 03:06:38 06/26/19 25 06/26/2024 UA/M W/RFL X CULTU RE, ROUTI NE comment CHARGE MACHINE OPERATOR Not Available [facility] ([facility]) [address] [facility], [place], [address], 06/30/2024 03:06:38 06/26/19 25 06/26/2024 UA/M W/RFL X CULTU RE, ROUTI NE microscopic examination CHARGE MACHINE OPERATOR Not Available [facility] ([facility]) [address] [facility], [place], [address], 06/30/2024 03:06:38 06/26/19 25 06/26/2024 UA/M W/RFL X CULTU RE, ROUTI NE urinalysis reflex COMMEN T This speci men has refle xed to a Urine Cultu re. Not Available [facility] ([facility]) [address] [facility], [place], [address], 06/30/2024 03:06:38 06/26/19 25 06/27/2024 UA/M W/RFL X CULTU RE, ROUTI NE urine culture, routine FINAL REPORT Not Available [facility] ([facility]) [address] [place], [address], 06/30/2024 03:06:38 06/26/19 25 06/27/2024 UA/M W/RFL X CULTU RE, ROUTI NE result 1 COMMEN T Mixed uroge nital ephraim 10,00 0-25, 000 colon y formi ng units per mL Not Available [facility] ([facility]) [address] [place], [address], 06/30/2024 03:06:38 06/26/19 25 06/26/2024 LIPID PANEL cholesterol, total 146 mg/dL 100-19 9 normal Not Available [facility] ([facility]) [address] [place], [address], 06/30/2024 03:06:39 06/26/19 25 06/26/2024 LIPID PANEL triglyceride s 108 mg/dL 0-149 normal Not Available [facility] ([facility]) [address] [place], [address], 06/30/2024 03:06:39 06/26/19 25 06/26/2024 LIPID PANEL HDL cholesterol 51 mg/dL >39 normal Not Available [facility] ([facility]) [address] [place], [address], 06/30/2024 03:06:39 06/26/19 25 06/26/2024 LIPID PANEL VLDL cholesterol tess 20 mg/dL 5-40 Not Available [facility] ([facility]) [address] [place], [address], 06/30/2024 03:06:39 06/26/19 25 06/26/2024 LIPID PANEL LDL chol calc ([facility]) 75 mg/dL 0-99 Not Available [facility] ([facility]) [address] [place], [address], 06/30/2024 03:06:39 06/26/19 25 06/26/2024 LIPID PANEL LDL calc comment: CHARGE MACHINE OPERATOR Not Available [facility] ([facility]) [address] [place], [address], 06/30/2024 03:06:39 06/26/19 25 06/29/2024 ALK PHOS ISOEN ZYME liver fraction: 40 % 18-85 Not Available [facility] ([facility]) [address] [place], [address], 06/30/2024 03:06:40 06/26/19 25 06/29/2024 ALK PHOS ISOEN ZYME bone fraction: 42 % 14-68 Not Available [facility] ([facility]) [address] [place], [address], 06/30/2024 03:06:40 06/26/19 25 06/29/2024 ALK PHOS ISOEN ZYME intestinal frac.: 18 % 0-18 Not Available [facility] ([facility]) [address] [place], [address], 06/30/2024 03:06:40 06/26/19 25 06/26/2024 HEMOG LOBIN A1C hemoglobin A1C 5.7 % 4.8-5. 6 above high normal Predi abete s: 5.7 - 6.4 Diabe joby: >6.4 Glyce alberto contr ol for adult s with diabe joby: <7.0 Not Available [facility] ([facility]) [address] [place], [address], 06/30/2024 03:06:41 06/26/19 25 06/26/2024 GGT GGT 12 IU/L 0-60 normal Not Available [facility] ([facility]) [address] [place], [address], 06/30/2024 03:06:41 06/26/19 25 07/01/2024 THYRO XINE (T4) thyroxine (T4) 5.2 ug/dL 4.5-12 .0 normal Not Available [facility] ([facility]) [address] [place], [address], 07/01/2024 05:07:12 07/18/19 25 07/18/2024 PTH, INTAC T PTH, intact 48 pg/mL 15-65 normal Not Available [facility] ([facility]) [address] [place], [address], 07/18/2024 13:37:17 07/18/19 25 07/18/2024 THYRO GLOBU [...] to 4 IU/mL . Not Available [facility] ([facility]) [address] [place], [address], 07/19/2024 03:09:44 07/18/19 25 07/18/2024 THYRO ID PEROX IDASE (TPO) AB thyroid peroxidase (tpo) Ab 10 IU/mL 0-34 normal Not Available [facility] ([facility]) [address] [place], [address], 07/19/2024 03:09:45 07/18/19 25 07/19/2024 QUANT IFERO N-TB GOLD PLUS quantiferon incubation INCUBA TION PERFOR MED. Not Available [facility] ([facility]) [address] [place], [address], 07/23/2024 03:09:40 07/18/19 25 07/19/2024 QUANT IFERO [...] ol for the test. Not Available [facility] ([facility]) [address] [place], [address], 07/23/2024 03:09:40 07/18/19 25 07/22/2024 QUANT IFERO N-TB GOLD PLUS quantiferon TB1 Ag value 0.15 IU/mL Not Available [facility] ([facility]) [address] [place], [address], 07/23/2024 03:09:40 07/18/19 25 07/22/2024 QUANT IFERO N-TB GOLD PLUS quantiferon TB2 Ag value 0.11 IU/mL Not Available [facility] [address] [place], [address], 07/23/2024 03:09:40 07/18/19 25 07/22/2024 QUANT IFERO N-TB GOLD PLUS quantiferon nil value 0.14 IU/mL Not Available [facility] ([facility]) [address] [place], [address], 07/23/2024 03:09:40 07/18/19 25 07/22/2024 QUANT IFERO N-TB GOLD PLUS quantiferon mitogen value >10.00 IU/mL Not Available [facility] ([facility]) [address] [place], [address], 07/23/2024 03:09:40 07/18/1907/22/2024 QUANT IFERO N-TB GOLD [...] y metho dolog y Not Available [facility] ([facility]) [address], [place], [address], 07/23/2024 03:09:40 03/31/20 24 03/31/2024 MAMMO , scree whitney, tomos ynthe sis, bilat eral, w/ CAD No observ ation record ed. [facility] [address], [place], [address], 04/01/2024 10:16:52 04/11/20 24 04/11/2024 XR, abdom en No observ ation record ed. [facility] [address] [place], [address], 04/12/2024 15:17:23 04/15/20 24 04/15/2024 CT, abdom en + pelvi s, w/ contr ast No observ ation record ed. [facility] (Medical Records) [facility] [address] [address] [facility][note 3], [place], [address], 04/15/2024 20:19:14 05/01/19 25 04/15/2024 elect yeimi awad am No observ ation record ed. Not Available 2024 16:13:21 Result Notes None recorded. Problems Name Problem SNOMED Code Status Onset Date Resolution Date Notes Provider Name and Address Organization Details Recorded Time Cardiac catheter ization Completed 202005/21/2020 Candace Ribera PA-C [address] [place], [address] , [facility] 1 15:37:54 Gastroes ophageal reflux disease 809132575 Active 2020 w/ gastriti s Not Available [facility] 3 01:34:02 Anxiety 98138370 Active 2020 since July when daughter went missing Radha Soriano MD [address] [place], [address] , [place] [facility] 4 15:39:42 Depressi ve disorder 03443281 Completed 201608/31/2023 life stressor s, more sad now then depresse d Radha Soriano MD [address] [place] [address], [phone] , [place] [facility] 4 10:17:44 Hyperlip idemia 63531596 Active 2020 Not Available [employer] 3 01:34:03 Hyperten sive disorder 82614925 Completed 202005/21/2020 Radha Soriano MD [address] [place] [address], [phone] , [place] [facility] 3 12:34:41 Coronary arterios clerosis 71769908 Active 2020 w/ angina when highly stressed /anxious Not Available [employer] 3 01:34:03 History of calculus of kidney 820971663 Completed 202005/21/2020 Radha Soriano MD [address] [place] [address], [phone] , [place] [facility] 4 15:43:21 History of thyroid disorder 406347882 Completed 202012/28/2021 Radha Soriano MD [address] [place] [address], [phone] , [place] [facility] 2 13:22:46 Bradycar jorge l [id number] Completed 202004/01/2024 Removal Reason: resolved Radha Soriano MD [address] [place] [address], [phone] , [place] [facility] 4 15:42:25 Intermit tent palpitat ions 289404443 Active 2020 Not Available [employer] 3 01:34:02 Insomnia 512042952 Active 2020 Not Available [employer] 3 01:34:02 Hyperten sive disorder 54309655 Completed 202007/19/2020 Radha Soriano MD [address] [place] [address], [phone] , [facility] 3 12:34:41 Supraven tricular tachycar jorge l 8457635 Active 2020 quiet on BB Not Available [employer] 3 01:34:03 Decrease d hearing 468890127 Completed 202004/01/2024 B hearing aids Radha Soriano MD [address] [place] [address], [phone] , [facility] 4 15:46:28 History of placemen t of stent for coronary artery disease 794565804 Completed 202012/28/2021 Radha Soriano MD [address] [place] [address], [phone] , [facility] 2 13:19:37 History of calculus of kidney 730532421 Active multiple in 1980s, s/p surgical extracti on Radha Soriano MD [address] [place] [address], [phone] , [facility] 4 15:43:21 Carcinoi d tumor - morpholo gy Completed 197911/06/2023 appendix Removal Reason: KHALIDA Soriano MD [address] [place] [address], [phone] , [facility] 4 21:53:28 Atherosc lerosis of aorta 16181971 Active 2020 on CXR Radha Soriano MD [address] [place] [address], [phone] , [facility] 4 15:40:50 History of hyperthy roidism 569532798 Active Not Available [employer] 3 01:34:02 Sedative dependen ce 377078046 Active 2021 on melatoni n Radha Soriano MD [address] [place] [address], [address] , [facility] 4 15:46:08 Psychoac tive substanc e dependen ce 3721766 Active 2021 on sertrali ne, desvenla faxine ER Radha Soriano MD [address] [place] [address], [address] , [facility] 4 15:45:44 Qualitat kristin platelet disorder 388080408 Completed 202106/30/2024 on ASA, sertrali ne, desvenla faxine ER Radha Soriano MD [address] [place] [address], [address] , [facility] 5 07:06:49 Ex-smoke r 7129102 Active 1985 1 ppd x10 years; quit 1985 Not Available [employer] 3 01:34:03 Nodule of lung 305927985 Active 2022 small TRACI calcifie d Not Available [employer] 3 01:34:03 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 002725537 Completed 202202/04/2023 Radha Soriano MD [address] [place] [address], [address] , [facility] 3 15:22:16 Atypical chest pain 412724979 Active 2022 unsure if caused by anxiety or not Radha Soriano MD [address] [place] [address], [address] , [facility] - [facility] 4 15:42:04 Hyperten sive disorder 07703058 Active 2022 Not Available [employer] 3 01:34:03 Hiatal hernia 98445393 Active 2022 Not Available [employer] 3 01:34:03 Gastriti s 8879797 Active 2022 sees GI in 04/2024 Radha Soriano MD [address] [place] [address], [address] , [place] [facility] 4 15:43:00 Hypergly cemia 85991474 Completed 202203/28/2024 Radha Soriano MD [address] [place] [address], [address] , [place] [facility] 4 08:33:26 History of non-ST segment elevatio n myocardi al infarcti on 566370752 Active 2022 Radha Soriano MD [address] [place] [address], [address] , [place] [facility] 4 10:19:27 Acute upper respirat ory infectio n 59931800 Completed 202208/26/2023 Radha Soriano MD [address] [place] [address], [address] , [place] [facility] 4 21:02:12 Acute hemorrha gic cystitis 92674525 Completed 202311/06/2023 Radha Soriano MD [address] [place] [address], [address] , [place] [facility] 4 21:55:17 Chest pain 67627883 Completed 202208/26/2023 Radha Soriano MD [address] [place] [address], [address] , [place] - [facility] 4 21:02:25 Moderate recurren t major depressi on 83005948 Active 2023 life stressor s, more sad now then depresse d Radha Soriano MD [address] [place] [address], [address] , [place] [facility] 4 10:17:37 Squamous cell carcinom a of skin 234290684 Completed 11/06/2023 L medial cheek Radha Soriano MD [address] [place] [address], [address] , [place] [facility] 4 21:56:43 Stable angina 153742021 Active 2023 [place] [address] [place] [address], [address] , [place] [facility] 4 10:19:00 Peripher al vascular disease 553721746 Active 2021 QF R severe, L normal Radha Soriano MD [address] [place] [address], [address] , [place] [facility] 4 10:23:33 History of benign carcinoi d neoplasm 57540709605 340882 Active 2017 appendix Radha Soriano MD [address] [place] [address], [address] , [facility] 4 21:53:16 History of malignan t neoplasm of skin 782584915 Active SCC L medial cheek Radha Soriano MD [address] [place] [address], [address] , [place] [facility] 4 21:56:41 Occipita l headache 411655 Active 2023 Radha Soriano MD [address] [place] [address], [address] , [place] [facility] 4 12:01:01 Impairme nt of balance 763091152 Active 2023 eyes don't follow head turns Radha Soriano MD [address] [place] [address], [address] , [place] [facility] 4 15:44:24 Impacted cerumen of bilatera l ears 14678871504 90319 Completed 202304/01/2024 Per ENT note 12/03/23 Radha Soriano MD [address] [place] [address], [address] , [place] [facility] 4 07:30:21 Sensorin eural hearing loss of bilatera l ears 154386545 Active 2023 B hearing aids Radha Soriano MD [address] [place] [address], [address] , [place] [facility] 4 15:46:37 Lower urinary tract symptoms 546627207 Active 2023 Radha Soriano MD [address] [place] [address], [address] , [facility] 4 15:33:37 Vaginal irritati on 665970625 Active 2023 referred to WET PROCESS [facility] MILLER Radha Soriano MD [address] [place] [address], [address] , [facility] 4 15:48:01 Wilkerson' s esophagu s 964552906 Active 2023 Radha Soriano MD [address] [place] [address] , [facility] 4 15:57:00 Pain of left breast 9110973537 Active 2023 intermit tent Radha Soriano MD [address] [place] [address] , [facility] 4 15:45:21 Prediabe joby 149158488 Active 2023 new diagnosi s 5.8% Radha Soriano MD [address] [place] [address], [address] , [facility] 4 08:33:47 Thyroid function tests abnormal 039417775 Active 2023 Rahda Soriano MD [address] [place] [address] , [facility] 4 07:43:30 Alkaline phosphat ase above referenc e range 583780057 Active 2023 Radha Soriano MD [address] [place] [address] , [facility] 4 07:45:05 Upper abdomina l pain 52896616 Active 2023 Radha Soriano MD [address] [place] [address] , [facility] 4 14:18:58 Lower abdomina l pain 29586983 Active 2023 Radha Soriano MD [address] [place], [address] , [place] [facility] 4 14:19:05 Acute diarrhea 868050656 Active 2023 Radha Soriano MD [address] [place], [address] , [place] [facility] 4 14:26:51 Urinary symptoms 012294049 Active 2024 LOBITO ELLER APRN [address] [place] [address], [address] , [place] [facility] 5 11:03:23 Night sweats 60404457 Active 2024 Radha Soriano MD [address] [place] [address], [address] , [place] [facility] 5 14:00:49 Problem Notes None recorded. Procedures Surgical History Date Name Laterality Status Provider Name and Address Organization Details Recorded Time 06/25 Phlebotomy Blood Draw completed Alejandra Horta [place] [facility] 5 09:15:27 05/06 hospital discharge med review cancelled Bree Joshizehra [place] [facility] 5 14:53:09 03/31 Date of Last Mammogram completed Radha Soriano MD [facility] [place], [address] , [place] [facility] 4 19:20:01 03/26 Phlebotomy Blood Draw completed Perlita Salgado [place] - [facility] 4 08:49:16 01/22 Phlebotomy Blood Draw completed Radha [place] [facility] 3 12:01:47 01/15 esophagogastroduodenoscopy completed Radha Soriano MD [facility] [place], [address] , [place] [facility] 4 16:00:18 01/01 Cryosurgery completed Candace Ribera PA-C [address] [place], [address] , [place] [facility] 3 09:27:40 12/07 hospital discharge med review completed Suzanne Umana [place] [facility] 3 10:55:52 11/06 angiography of coronary artery completed Radha Soriano MD [address] [place], [address] , [place] [facility] 3 14:48:04 08/14 hospital discharge med review completed Luis Costello [place] [facility] 3 10:46:42 12/30 PPD Read Results completed Rodrick Manuel [place] [facility] 2 13:59:22 12/22 Phlebotomy Blood Draw completed Georgia Lacy [place] [facility] 2 11:50:57 02/09 Cerumen Removal completed Candace Ribera PA-C [address] [place], [address] , [place] [facility] 1 12:10:42 08/24 Cerumen Removal completed Rodrick Manuel [place] [facility] 1 11:52:46 08/24 Phlebotomy Blood Draw completed Jesica Garza [place] [facility] 1 09:20:46 08/02 Phlebotomy Blood Draw cancelled Jesica Garza [place] [facility] 1 14:48:04 07/19 Preventative Visit Discussed with Patient completed Carissa Adams [place] [facility] 1 14:33:45 05/21 hospital discharge med review completed Candace Ribera PA-C [address] [place], [address] , [place] [facility] 1 16:35:46 04/16 Date of Last Colonoscopy completed MD Consuelo Ferrera[address] [place], [address] , [place] [facility] 2 13:46:42 04/16 colonoscopy completed [place], [address] , [place] [facility] 4 20:57:42 04/16 esophagogastroduodenoscopy completed [place], [address] , [place] [facility] 2 13:46:30 12/11 colonoscopy completed [place], [address] , [place] [facility] 4 15:30:56 04/16 percutaneous transluminal angioplasty of coronary artery using imaging guidance with contrast completed MD [facility] [place], [address] , [place] [facility] 2 13:42:33 04/16 cholecystectomy completed Carissa Adams [place] [facility] 1 15:11:26 04/16 repair of right direct inguinal hernia completed MD Collette Ferrera [facility] [place], [address] , [place] [facility] 2 13:41:40 04/16 Appendectomy completed Carissa Adams [place] [facility] 1 15:10:59 04/16 oophorectomy completed [place], [address] , [place] [facility] 2 13:42:53 ligation of bilatera l fallopian tubes completed MD Collette Ferrera [facility] [place], [address] , [facility] 2 13:43:26 Imaging Results None recorded. Procedure Notes None recorded. Medical Equipment None Reported. Allergies Allergen ID Allergen Name Allergen Category Reaction Reaction Severity Criticality Documentation Date Start Date Code Code System Note Provider Name and Address Organization Details Recorded Time 133498 sulfur dioxide medicatio n Not available Not available Not available 04/30/2020 58673 79 [facility] 15:04:37 393890 morphine medicatio n Not available Not available Not available 04/30/2020 7052 RxNorm Not Available [facility] 4 18:50:13 057880 oxycodone medicatio n Not available Not available Not available 12/28/2021 7804 RxNorm Not Available [facility] 4 18:50:13 760585 fluoxetin e medicatio n Not available Not available Not available 12/07/2022 4493 RxNorm Not Available [facility] 4 18:50:13 349660 Substance with sulfonami de structure and antibacte rial mechanism of action (substanc e) medicatio n Not available Not available Not available 03/09/2023 36128 8003 SNOMED Not Available [facility] 4 18:50:13 793225 nitroglyc jocelyn medicatio n Not available Not [...] al injection solution 0.1 mL 05/21 completed 1893664 Not Available Not Available Not Available sertralin [...] Updated DateTime 5 160.02 cm 25.7 kg/m2 42610.8 9 g 98 [degF] 16 /min 95 % 95 % 71 /min 109/65 mm[Hg] Gail Augustin montelongo [facility] 5 13:25:59 Date Recorded Body height Body mass index (BMI) Body weight Heart rate Oxygen saturation Oxygen saturation in Arterial blood by Pulse oximetry Systolic And Diastolic Provider Name and Address Organization Details Last Updated DateTime 4 160.02 cm 26 kg/m2 50356.6 4 g 82 /min 97 % 97 % 102/64 mm[Hg] Wanda Paulakristy [facility] 4 15:28:08 Date Recorded Body height Body mass index (BMI) Body weight Body temperature Heart rate Oxygen saturation Oxygen saturation in Arterial blood by Pulse oximetry Systolic And Diastolic Provider Name and Address Organization Details Last Updated DateTime 4 160.02 cm 26 kg/m2 41361.3 6 g 97.6 [degF] 77 /min 95 % 95 % 104/66 mm[Hg] Ela Langley [facility] 4 13:52:37 Social History Question Answer Notes LastModified by Organizat ion Details LastModified Time Tobacco Smoking Status Former Smoker onset age 17; quit age 24; restart age 29, final quit age 35 Radha Soriano MD [address] [place], [address], [facility] 07/17/2024 07:08:02 Do You Have An Advance [...] Or The Highest Degree You Have Received? DM31152-5 Information not available 12/28/2021 Have There Been [...] X2, DIL, (daughter) Information not available 04/30/2020 [facility] In Which You Live [place], [place] Information not available 12/28/2021 Judaism Preference Sikh Information not available 12/28/2021 What Is Your [...] not available 01/24/2023 [facility] What Year Did You Move Here? 2001 Information not available 04/01/2024 Do You Have A Medical Power Of Lead Architect? Yes (not On File) Karla Spicer Daughter [...] 04/30/2020 Are you currently employed? Yes [employer] Information not available 04/01/2024 Are you able [...] mcg/0.3 mL dose 07/12/2020 completed Not Available [facility] 3 01:34:03 COVID-19, mRNA, LNP-S, PF, 30 mcg/0.3 mL dose 03/28/2021 completed Not Available [facility] 3 01:34:04 COVID-19, mRNA, LNP-S, PF, 30 mcg/0.3 mL dose 08/09/2020 completed Not Available [facility] 3 01:34:04 Past Encounters Encounter ID Performer Location Encounter Start Date Encounter Closed Date Diagnosis/Indication Diagnosis SNOMED-CT Code Diagnosis ICD10 Code Diagnosis Note [id number] Melissa Sylvester MD [facility] [address] [place] [address] 05/21/2020 15:29:51 05/21/2020 16:49:00 Medication review done 938970997 Z76.89 Please let us know if your [...] of life for patients. Hearing examination 3981 87544 Z01.10 Patient does have decreased hearing. [facility] screening assessment 005252355 Z13.31 PHQ2 Depression Screening Assessment performed this visit. Alcohol co nsumption screening 550523194 Z13.89 Alcohol use discussed with patient. Anxiety 00179886 F41.9 Stable on current medication s. escitalopr am 20mg Depressive disorder 3548 9007 F32.9 Stable on current medication s. Gastroesop hageal reflux disease 656938253 K21.9 Stable on pantoprazo le 40 mg BID. Eat slower and smaller meals. Problemati c foods include citrus, chocolate, coffee, mint, carbonated beverages and tomato based foods. Heart disease 70746850 I 51.9 Patient will follow up with Dr. Sue. Hyperlipidemia 68765577 E78.5 Stable on rosuvastat in 10mg. High [...] maintainin g a normal weight. Coronary arteriosclerosis 66131832 I25.10 Will follow up with Dr. Sue, Cardiology . Continue with metoprolol Kidney stone 76776752 N2 0.0 Patient has history of kidney stones. Hospital i npatient stay within past 30 days 5376659700 106 Z76.89 Reviewed hospital records, patient's medical history and medication s. She is new to our clinic Intermitte nt palpitations 576183605 R00.2 Under going evaluation at this time. Insomnia 105296095 G47.0 0 History of thyroid disorder 792215789 Z86.39 Bradycardia 87528556 R00 .1 [id number] Melissa Sylvester MD [facility] [address] [place] [address] 07/19/2020 10:04:03 07/19/2020 10:52:37 Adult health examination 991728605 Z00.00 patient had adult health exam in clinic on today's date. Recommend 150 minutes of physical activity per week. Recommend patient ingest at least 5 servings of fruits and vegetables per day. Encourage patient on proper hydration. Discussed preventati ve care including colorectal screening and immunizati ons. Medication review done 702917107 Z76.89 Please let us know if your [...] of life for patients. Risk assessment done 431 788552 Z76.89 Environmen ayad and social supports that [...] money. Advance di rective discussed with patient 781591456 Z71.89 Advance directives are legal documents that [...] Health Team. Mental hea lth screening assessment 594330313 Z13.31 PHQ2 Depression Screening Assessment performed this visit. Alcohol co nsumption screening 413867345 Z13.89 Alcohol use discussed with patient. ETOH none Screening for malignant neoplasm of breast 696031049 Z12.39 will order screening mammo Screening for malignant neoplasm of colon 290054027 Z12.11 Dr Kyle Good to follow up up last colonscopy in 2019 Anxiety 50336774 F41.9 stable on current medication s Depressive disorder 3548 9007 F32.9 escitalopr am 20mg] stable denies SI/HI Gastroesop hageal reflux disease 300777468 K21.9 pantoprazo le 40mg stable on current dose, Hyperlipidemia 05417359 E78.5 rosuvastat in 10mg will follow up lipid panel Discussed with patient about diet/exerc ise modificati on to reduce weight. Patient understood and agreed to work on modificati ons as discussed. Insomnia 683199893 G47.0 0 melatonin 10mg stable will continue to follow up Psychoacti ve substance dependence 2805128 F19.20 terminal carman use of escitalopr am an SSRI. Physical dependence upon treatment of the underlying condition develops. There is a high likelihood of developing physical withdrawal symptoms and sudden resurgence of depression symptoms with sudden cessation of the medication . Patient was advised not to stop treatment without consulting the prescriber to determine a plan to taper the Rx Continue current regimen. Supraventr icular tachycardia 8507643 I47.1 Metoprolol 25 mg for VT in her teens admitted in hospital 05/14/20--- >05/16/20 for chest discomfort / bradicardi a and weakness metoprolol dose was decreased to 25 mg daily doing good now and feeling improved History of thyroid disorder 301645942 Z86.39 had ? thyroid storm previous not currently on any medication s will follow up TSH and t4 Decreased hearing 263176 001 H91.90 unable to afford hearing aid but now with insurance change wants to check pricing will refer to audiology ear wax in right ear will do ear cleaning before the audio logy appt once they are made, History of placement of stent for coronary artery disease 843280550 Z95.5 pLAD 70-80% stenosis s/pDES 08/2011 Lexiscan 2014 EF 88% no ischemia follow up with [facility] cardiology Coronary arteriosclerosis 24590591 I25.10 as above [id number] Melissa Sylvester MD [address] [address] 08/24/2020 09:07:11 08/24/2020 14:18:38 Hyperlipidemia 17750808 E78.5 Supraventr icular tachycardia 4481955 I47.1 [id number] Melissa Sylvester MD [address] [address] 08/24/2020 11:11:21 08/24/2020 15:39:18 [id number] Home Sifuentes MD [address] [address] 11/25/2020 08:53:48 11/25/2020 09:46:22 Localized eruption of skin 016613674 R21 The pt has an erythemato us, [...] with the treatment plan discussed. Peripheral edema 2867117 00 R60.9 The pt has moderate, nonpitting edema localized on the lateral malleolus of her L ankle. The pt has mild edema in bilateral ankles. I am unsure if this has to do with her fall 4 month ago. Conservati ve measures recommende d at this time. The pt declines compressio n stockings. Elevate legs while sitting down. [id number] Melissa Sylvester MD [place] [address] 02/09/2021 11:18:07 02/09/2021 13:10:36 Impacted cerumen of bilateral ears 7577375966 719557 H61.23 Patient had small amount of cerumen in both ears. This was easily removed with lavage and patient tolerated this well. [id number] Hal Malhotrae [place] [address] 02/21/2021 10:02:03 02/21/2021 13:10:03 Benign paroxysmal positional vertigo 481430713 H81.10 Discussed anatomy of the inner ear and causes of BPPV. Discussed both Ivy maneuvers and half somersault maneuver to help with resolution of vertigo as it occurs. Patient will follow-up if this is not resolving. Qualitativ e platelet disorder 726701498 D69.1 Patient is a low aspirin daily. She has had no episodes of bleeding. Mild major depression, single episode 53951228 F32.0 She is stable on escitalopr am 20 mg daily. Atheroscle rosis of aorta 38922144 I70.0 Noted on previous x-ray. Patient is on a statin daily. [id number] Hal Malhotrae [place] [id number] 05/16/2021 13:28:21 05/16/2021 14:42:40 Plantar fasciitis of left foot 3589141185 7968541 M72.2 We reviewed various ways to help relieve the plantar fasciitis. she needs to avoid going barefoot, wearing flats or shoes without good arch support. Discussed exercises, stretches, use of ice, NSAIDS, taping techniques or even a ight slpint. She will work on this at home and it not resolving, can refer to podiatry. Impacted c erumen of bilateral ears 8121005326 108669 H61.23 Patient had very small amount of cerumen in both ears but on wall, not blocking. Lavage not needed today. Qualitativ e platelet disorder 699899618 D69.1 Patient is a low aspirin daily. She has had no episodes of bleeding. Psychoacti ve substance dependence 1366928 F19.20 halfway use of: escitalopr am. Physical dependence with this medication can develop. There is a high likelihood of developing physical withdrawal symptoms and sudden resurgence of symptoms with cessation of the medication . Should patient want to stop medication , we would form a taper plan to discontinu e the medication . Depressive disorder 1980 9007 F32.0 Stable on current medication s. Refill given. Atheroscle rosis of aorta 85106004 I70.0 Noted on previous x-ray. Patient is on a statin daily. Supraventr icular tachycardia 7176221 I47.1 This is under control on metoprolol succinate ER 50mg. Gastroesop hageal reflux disease 446819143 K21.9 Stable on pantoprazo le 40 mg BID. Eat slower and smaller meals. Problemati c foods include citrus, chocolate, coffee, mint, carbonated beverages and tomato based foods. Coronary arteriosclerosis 02819161 I25.10 Will follow up with Dr. Sue, Cardiology . Continue with metoprolol Hyperlipidemia 29078843 E78.5 Stable on rosuvastat in 10mg. High [...] increased aerobic conditiondavid landers a normal weight. [id number] Radha Soriano MD [facility] [address] [place] [address] 12/22/2021 11:27:58 12/22/2021 11:52:38 Depressive disorder 87710615 F32.0 Hyperlipidemia 95229091 E78.5 Supraventr icular tachycardia 9580001 I47.1 [id number] Jarek Rosen DPM [facility] e [address] [place] [address] 09/16/2021 11:23:47 09/16/2021 12:00:22 Plantar fasciitis of left foot 9816921069 8405063 M72.2 Patient was educated on the etiology [...] PT referral. Patient agreeable to today's plan. [id number] Hal Calhoun DO [facility] [address] [place] [address] 08/23/2021 16:25:15 08/23/2021 16:53:35 Upper respiratory infection 60581895 J06.9 Patient requested use of antibiotic s. [...] chemical make up). Follow directions on label. [id number] Radha Soriano MD [facility] [address] [place] [address] 12/28/2021 12:54:33 12/28/2021 14:15:08 Adult health examination 452232255 Z00.01 Reviewed history and health maintenanc e [...] belts at all times Medication review done 261506897 Z76.89 Please let us know if your [...] life for patients. Risk assessment done 712 108697 Z76.89 [facility] and social supports that effect a [...] money. Advance di rective discussed with patient 881122257 Z71.89 Advance directives are legal documents that [...] on file please discuss this with your [facility] Health Team. Coronary arteriosclerosis 61868935 I25.10 Patient has known coronary artery disease, and is status post a coronary angioplast y with stent placement in 2011. She reports that she has no issues with angina unless she is highly stressed or anxious. She currently takes low-dose aspirin, a beta-block er and a statin. She is followed by Cardiology . Insomnia 185623998 G47.0 0 Patient states that her insomnia [...] down, but she is aware this. Anxiety 82265768 F41.1 Patient is taking escitalopr am 20 mg daily, and as below, she would like to try tapering off of this medication since she is doing well in general. The medication was started around 2017 after her . Will continue to monitor as we are tapering down on medication . Atheroscle rosis of aorta 53318703 I70.0 Patient has been found to have atheroscle rosis of the aorta on previous imaging study of the chest. This is expected given patient's age as well as known hyperlipid emia. Will continue to maximize control of blood pressure, sugar and cholestero l levels. Bradycardia 63421682 R00 .1 Patient takes metoprolol ER 50 [...] recommend any changes. 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 She is no longer followed by Oncology, although she had a normal colonoscop y in 2018. Will continue to monitor. Decreased hearing 143461 001 H91.90 Patient has hearing loss, and wears hearing aids bilaterall y. She denies any recent changes in her condition. Depressive disorder 1898 9003 F32.1 As above, patient developed depression and [...] follow-up annual exam. Gastroesop hageal reflux disease 194304356 K21.00 Patient has esophageal reflux, and has [...] the pharmacy. History of calculus of kidney 394017524 Z87.442 Patient has a history of a kidney stone in the , which needed to be surgically extracted. I do not have a uric acid level on file, and her most recent urinalysis demonstrat ed blood in August of 2020. will plan to repeat the urinalysis and check a uric acid level next year. Hyperlipidemia 19126856 E78.5 Lipid panel normal on last check. Continues on moderate dose Rosuvastat in. ASCVD risk score is 7.7%; this was not previously calculated . Encouraged healthier lifestyle habit to control lipid levels and weight. Will not change current dose of medication and plan to repeat panel in 12 months and adjust regimen as indicated. Intermitte nt palpitations 447054369 R00.2 Patient reports intermitte nt palpitatio ns that are currently controlled for the most part with metoprolol ER 50 mg daily. As she is stable and followed by Cardiology , no changes are indicated. Supraventr icular tachycardia 8232019 I47.1 She has not had any further episodes of SVT despite lowering her dose of metoprolol . Cardiology had thought to refer her to EP Cardiology if her SVT recurred. Body mass index 25-29 - overweight 448986168 Z68.27 Weight down 3.4# since this time last year. Patient aware of need to continue to follow healthier dietary habits and remain active with dedicated exercise. Depression screening 171 316487 Z13.31 Negative; score 0/2. At [facility] risk for falls 291302816 Z91.81 STEADI score 3/14. 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 Psychoacti ve substance dependence 9376418 F19.20 Patient continues on a psychoacti ve [...] will continue to monitor. History of hyperthyroidism 314528447 Z86.39 Patient reports a history of hyperthyro idism, however her thyroid panel is currently normal and she is not taking any methimazol e. Chart review indicates that she has not taken this type of medication for at least the last few years. Will plan to repeat a thyroid panel in a year as she is doing well. Ex-smoker 1047656 Z87.89 1 Patient reports smoking for about [...] ordered as requested. Hepatitis C screening 42 4542534 Z11.59 At risk age group. Will check baseline Hepatitis C level and refer for further evaluation and treatment if positive. [id number] Radha Soriano MD [address] [address] 12/28/2021 14:11:42 12/28/2021 14:32:04 Mantoux test done 120663887 Z11.1 Patient needing for her job. [id number] Radha Soriano MD [address] [address] 12/30/2021 13:56:35 12/30/2021 15:37:12 Mantoux test done 364856726 Z11.1 Results read in office today. Negative. [id number] Radha Soriano MD [address] [address] 07/26/2022 11:14:35 07/26/2022 13:49:31 Depressive disorder 68010046 F32.1 She would like to try switching to a different SSRI. We discussed options and we decided to try stopping the escitalopr am 10 mg and switch to fluoxetine 20 mg. She will follow up in 4-6 weeks to see how she is doing. Psychoacti ve substance dependence 3885845 F19.20 Long-term use of: fluoxetine and SSRI. Physical dependence with this medication can develop. There is a high likelihood of developing physical withdrawal symptoms and sudden resurgence of symptoms with cessation of the medication . Should patient want to stop the medication , we would form a taper plan to discontinu e the medication . [id number] Radha Soriano MD [facility] [address] [place] [address] 08/14/2022 12:52:44 08/14/2022 16:40:41 Hospital inpatient stay within past 30 days [id number] 106 Z76.89 Reviewed hospital records, patient's medical history and medication s. Screening for malignant neoplasm of breast 639041668 Z12.39 Gastroesop hageal reflux disease 239496803 K21.00 Possible break through on pantoprazo le 40 mg BID. Follow up with GI. Referral placed. Eat slower and smaller meals. Problemati c foods include citrus, chocolate, coffee, mint, carbonated beverages and tomato based foods. Depressive disorder 8888 9007 F32.1 Patient will continue on fluoxetine 10 mg daily. Coronary arteriosclerosis 15679029 I25.10 She would like to find a new cardiologi st. Atypical chest pain 1025 52773 R07.89 Patient would like consult with a new cardiologi st so this referral was made for her. She had workup in the hospital which was unremarkab le. They did decrease her metoprolol from ER 50 mg daily to ER 25 mg daily. Qualitativ e platelet disorder 075627087 D69.1 Patient is taking a medication ( [...] monitor this condition. Atheroscle rosis of aorta 95146519 I70.0 Patient has been found to have atheroscle rosis of the aorta on previous imaging study of the chest. This is expected given patient's age as well as known hyperlipid emia. Will continue to manage blood pressure, sugar and cholestero l levels. Supraventr icular tachycardia 2897953 I47.1 Patient has occasional tachycardi c runs. She will follow up with cardiology . Last holter was about a year ago. Peripheral vascular disease 812450058 I73.9 No claudicati on reported. [id number] Radha Soriano MD [address] [address] 01/22/2023 10:52:27 01/28/2023 02:47:21 History of hyperthyroidism 780090574 Z86.39 Depressive disorder 3548 9007 F32.1 History of calculus of kidney 294142804 Z87.442 Hepatitis C screening 41 1066669 Z11.59 Hyperlipidemia 91743298 E78.5 [id number] Radha Soriano MD [address] [address] 12/07/2022 14:21:51 12/07/2022 15:25:11 Hospital inpatient stay within past 30 days [id number] 106 Z76.89 Hospital ER, history and physical, consult and discharge notes reviewed. Labs and imaging reports reviewed. Transition al care management notes reviewed and appreciate d. Atypical chest pain 1025 09824 R07.89 Atypical left-sided substernal chest pain associated with anxiety, final diagnosis was NSTEMI. Coronary angiogram demonstrat ed a patent LAD stent and showed otherwise mild residual LAD disease with an ejection fraction of 60%. She has a follow-up with cardiology next week. Given that there is a close associatio n with her anxiety, we will work on maximizing control as below. Bradycardia 20105205 R00 .1 Taking metoprolol ER for CAD, with subsequent ly slow heart rates. Since her hospitaliz ation she has been decreased to 12.5 mg daily. Heart rates are better, and closer to the normal range. Expect that her fatigue will improve with this as well. Will continue to monitor along with Cardiology . Hyperlipidemia 05678348 E78.5 Lipid panel normal on last check. [...] checked. Lab drawn today. Hypertensive disorder 38 661585 I10 BP looks good on current regimen [...] visit. Body mass index 25-29 - overweight 746303605 Z68.26 Weight down 4.2# since this time last year. Patient aware of need to continue to follow healthier dietary habits and remain active with dedicated exercise. Anxiety 07728210 F41.1 She does not feel that escitalopr [...] medication follow-up unless she is having problems. [id number] Radha Soriano MD [facility] [address] [place] [address] 01/01/2023 08:57:21 01/01/2023 17:34:45 Actinic keratosis 743053378 L57.0 Froze one lesion on left cheek. [...] d protective clothing and sun avoidance. Anxiety 78456829 F41.9 Will increase sertraline up to 50 mg daily. She will follow up in one month and we will see how she is doing. Sooner if needed. Atypical chest pain 1025 52229 R07.89 She stopped the metoprolol and is now on carvedilol . She is keeping an eye on blood pressure. She will follow up with cardiology . [id number] Radha Soriano MD [facility] [address] [place] [address] 01/24/2023 12:57:49 01/25/2023 07:25:07 Adult health examination 167644492 Z00.01 Reviewed history and health maintenanc e [...] belts at all times Medication review done 406534293 Z76.89 Please let us know if your [...] of life for patients. Risk assessment done 598 740351 Z76.89 Environmen ayad and social supports that [...] money. Advance di rective discussed with patient 043770098 Z71.89 Advance directives are legal documents that [...] on file please discuss this with your [facility] Team. Anxiety 88759881 F41.9 She felt that the low-dose sertraline [...] pharmacy as requested. Atheroscle rosis of aorta 07554073 I70.0 She has been found to have atheroscle rosis of the aorta on previous imaging study of the chest. This is expected given her age as well as known hyperlipid emia, heart disease, history of smoking and hypertensi on. Will continue to maximize control of blood pressure, sugar and cholestero l levels. Bradycardia 27814820 R00 .1 Heart rate is low normal at 68 beats per minute on carvedilol IR 6.25 mg daily. She takes 2 of the 3.125 mg tablets at bedtime. She is being closely followed by Cardiology , and is doing better since switching to this medication . We will continue to monitor. 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 She is no longer followed by Oncology, and had a normal colonoscop y in 2018. There has been no evidence of recurrent disease. Will continue to monitor. Coronary arteriosclerosis 84626587 I25.10 She has known, nonobstruc tive coronary [...] will monitor along with them. Decreased hearing 755402 001 H91.90 She has hearing loss, and wears hearing aids in both ears. She denies any recent changes in her condition and is followed by Audiology. Will monitor along with them. Depressive disorder 0102 0485 F33.41 She suffered from depression after her , but reports that her symptoms have resolved. However, she continues on sertraline for anxiety. Will continue to monitor, and her PHQ 2 screening was negative. Ex-smoker 4259781 Z87.89 1 She smoked about 1 pack of cigarettes daily for 10 years overall with multiple quits and restarts between the ages of 17 in 35. She quit in 1985, and does not require screening for lung cancer based on time since quitting and total pack years. Gastroesop hageal reflux disease 416344426 K21.00 She is doing well on pantoprazo le 40 mg daily. Her most recent EGD in 2018 demonstrat ed gastritis and esophageal reflux. She is following appropriat e dietary and lifestyle habit modificati ons to control symptoms. No changes are needed at this time. History of calculus of kidney 495396072 Z87.442 She had a distant history of a kidney stone in 1980s, and is status post surgical extraction of stone. She is maintainin g adequate hydration and avoiding dehydratio n. Urinalysis is normal. History of hyperthyroidism 454829970 Z86.39 Normal TSH and free T4 level without medication . She is currently asymptomat ic.No changes recommende d. Repeat thyroid panel in 12 months or sooner as needed for problems or changes. Hyperlipidemia 74009396 E78.5 Lipid panel normal on last check. Continues on low dose Rosuvastat in. ASCVD risk score is 12.4%; this is worse than previous check. Encouraged healthier lifestyle habit to control lipid levels and weight. Will not change current dose of medication and plan to repeat panel in 12 months and adjust regimen as indicated. Renewed her rosuvastat in as requested. Hypertensive disorder 38 621518 I10 BP looks good on current regimen [...] for review at every office visit. Insomnia 575726652 G47.0 0 Although she continues to have problems with falling asleep and waking earlier than desired, she is no longer using any sedative medication s or supplement s. She continues on sertraline 50 mg daily and will be increased to twice daily as above. Continue to monitor for now. Intermitte nt palpitations 062642289 R00.2 She reports intermitte nt palpitatio ns that are mostly controlled with carvedilol IR 3.125 mg 2 daily. As she is stable and followed by Cardiology , will continue to monitor. Nodule of lung 576283970 R91.1 J84.10 She has pulmonary fibrosis, as manifested by a lung nodule noted on chest imaging. There has been no change to indicate another pulmonary process, as this finding has been stable on consecutiv e imaging. She has refused CT scan of the chest to date. Will continue to monitor. Psychoacti ve substance dependence 6458413 F19.20 She continues on a psychoacti ve [...] continue to monitor. 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 Supraventr icular tachycardia 6893782 I47.10 Her previously noted SVT is well controlled on carvedilol 3.125 mg 2 tablets daily. She is followed closely by Cardiology , so will monitor along with them. Body mass index 25-29 - overweight 142281425 Z68.26 Weight down 9# since December of 2021. Patient aware of need to continue to follow healthier dietary habits and remain active with dedicated exercise. Depression screening 171 439511 Z13.31 Negative; score 0/2. Screening for alcohol abuse 549121925 Z13.39 Negative; AUDIT-C score is 0/12. Hyperglycemia 82671174 R 73.9 Fasting glucose is in the pre-diabet es range at 103. Not on medication to control sugar level. Advised patient to work on diet and exercise habits to reduce sugar levels and control weight. Repeat fasting glucose and check A1c in 1 year to monitor status or sooner as needed. At very lo w risk for fall 3358724415 46869 Z76.89 STEADI score 0/14. History of non-ST segment elevation myocardial infarction 308742056 I25.2 She had an acute NSTEMI in [...] continue to follow along with Cardiology . [id number] Travis Gaytan DO [facility] [address] [place] [address] 03/09/2023 16:17:28 03/09/2023 16:55:36 Acute upper respiratory infection 62155579 J06.9 [id number] [address] [facility] [address] [place] [address] 05/09/2023 09:21:29 05/09/2023 10:36:07 Hypertensive disorder 81168070 I10 Please follow a low salt diet. [...] and maintain good blood pressure control. Hyperlipidemia 89087367 E78.5 Stable on rosuvastat in 10mg. High [...] and maintainin g a normal weight. Anxiety 69652326 F41.9 Continue sertraline 50 mg daily. Gastroesop hageal reflux disease 025831657 K21.00 Continue on pantoprazo le 40 mg BID. Followed by GI. Eat slower and smaller meals. Problemati c foods include citrus, chocolate, coffee, mint, carbonated beverages and tomato based foods. Stable angina 616269387 I20.89 Continue with ranolazine ER once to twice daily. Pigmented skin lesion of uncertain nature 513259076 L81.9 She will see dermatolog y for biopsy of this as it returned after cryo. [id number] Radha Soriano MD [facility] [address] [place] [address] 03/26/2024 08:42:30 03/30/2024 05:03:34 Hypertensive disorder 84512096 I10 History of hyperthyroidism 021982693 Z86.39 Hyperglycemia 57874846 R 73.9 Hyperlipidemia 27029655 E78.5 Anxiety 21757748 F41.9 [id number] Radha Soriano MD [address] [place] [address] 07/17/2023 08:53:57 07/17/2023 10:04:42 Melanocytic nevus 593508832 D22.9 Normal flesh colored mole on jaw of no concern. checked with derm scope and normal. Skin lesion 35347371 L98 .9 2 small red spots on nose. They are not concerning but since she returns to dermatolog y for Mohs surgery on her face, she will have them check this. [id number] Radha Soriano MD [facility] [address] [place] [address] 07/29/2023 10:47:19 07/29/2023 11:27:18 Lower urinary tract symptoms 696525745 R39.9 Acute hemo rrhagic cystitis 33585164 N30.01 It is recommende d that you [...] you are unable to reach our office. [id number] Radha Soriano MD [facility] [address] [place] [address] 08/27/2023 10:18:26 08/27/2023 11:09:11 Moderate recurrent major depression 25431608 F33.1 She continues on sertraline 50 mg [...] treating her anxiety. Gastroesop hageal reflux disease 798640730 K21.00 She has esophageal reflux associated with gastritis in 2018. Symptoms are controlled on pantoprazo le 40 mg twice daily; medication renewed as requested. She also follows appropriat e dietary and lifestyle habit modificati ons to control symptoms. No changes are needed at this time. Stable angina 321360516 I20.89 She reports that ranolazine ER 500 mg twice daily has been controllin g her angina pain. She has a history of an NSTEMI in October of 2022. She typically develops angina when under elevated stress or increased anxiety. She was last seen by Cardiology about a year ago. Renewed her medication as requested. Qualitativ e platelet disorder 374250407 D69.1 She is taking a medication ( [...] monitor this condition. Psychoacti ve substance dependence 0716072 F19.20 She continues on a psychoacti ve [...] continue to monitor. Atheroscle rosis of aorta 03918255 I70.0 She has been found to have atheroscle rosis of the aorta on previous imaging study of the chest. This is expected given her age as well as known hyperlipid emia, heart disease, history of smoking and hypertensi on. Will continue to maximize control of blood pressure, sugar and cholestero l levels. Peripheral vascular disease 793886296 I73.9 She had an abnormal non-invasi ve peripheral arterial extremity screening test in December of 2021. Distal extremity pulses are intact and there is no report of claudicati on. She is aware that regular exercise and good control of blood sugar, pressure and cholestero l are all essential to keeping this process under control. Supraventr icular tachycardia 7331559 I47.10 Her previously noted SVT is well controlled on carvedilol 3.125 mg twice daily. She is followed by Cardiology , so will monitor along with them. [id number] Radha Soriano MD [facility] [address] [place] [address] 11/07/2023 11:15:49 11/07/2023 13:02:07 Hypertensive disorder 34326794 I10 BP looks good on current regimen [...] review at every office visit. Occipital headache 38372 7 R51.9 Had a near fall a few weeks ago, but never actually fell to the ground. However, she developed an instant headache at that time in the occipital region that radiated towards the frontal region. Gait has become unsteady and off balance. Will obtain an MRI of the brain for further evaluation . Moderate r ecurrent major depression 21627842 F33.1 Significan t increase in depression and [...] there are problems. Impairment of balance 38 7782104 R26.89 Notices that her balance has been off and that she is running into things while ambulating . Given her persistent headache and near fall, will obtain a brain MRI for further evaluation . [id number] Radha Soriano MD [facility] [address] [place] [address] 02/21/2024 14:56:55 02/21/2024 16:19:58 Lower urinary tract symptoms 368902677 R39.9 Complains of pelvic pressure and urinary [...] she is feeling early next week. Anxiety 23917873 F41.9 Anxiety seems to be significan tly [...] symptoms remain. Moderate r ecurrent major depression 27595874 F33.1 Anxiety seems to be more prominent, [...] serotonin withdrawal symptoms in detail. Vaginal irritation 32442 2907 N89.8 She reports vaginal odor and irritation [...] Referral ordered as requested. 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 Pain of left breast 1010 665376 N64.4 She reports pain in the lateral aspect of the left breast, and has not had a mammogram since 2014. She declines a breast exam today, but would like to have a mammogram ordered. No known family history of breast cancer. Order sent for diagnostic mammogram with ultrasound if needed. [id number] [place] [facility] [address] [place] [address] 02/23/2024 13:44:54 02/23/2024 14:46:56 Lower urinary tract symptoms 037433877 R39.9 Patient was started on augmentin yesterday. Continue. Call if vaginal symptoms persist. Vaginal irritation 88729 6004 N89.8 Was referred to [facility]. Advised to keep that appointmen t.No s/s [...] is not sure. Referral ordered as requested. [id number] Radha Soriano MD [facility] [address] [place] [address] 03/12/2024 11:30:16 03/12/2024 13:18:16 Acute cough 7978375512 61889647 R05.1 See above Viral uppe r respiratory tract infection 357359320 J06.9 You have an upper respirator y [...] linger a little longer that other symptoms. [id number] Radha Soriano MD [address] [address] 03/17/2024 13:52:49 03/17/2024 14:53:16 Bronchitis 34316875 J40 Patient will be given a Z-Maurizio, [...] chest x-ray unless symptoms worsen or persist. [id number] Radha Soriano MD [address] [place] [address] 04/01/2024 15:09:33 04/01/2024 16:27:17 Adult health examination 658309808 Z00.01 Reviewed history and health maintenanc e [...] belts at all times Medication review done 413045037 Z02.89 Please let us know if your ability [...] of life for patients. Risk assessment done 852 864448 Z76.89 Environmen ayad and social supports that [...] money. Advance di rective discussed with patient 289521327 Z71.89 Advance directives are legal documents that [...] your [facility]. Depression screening 171 672803 Z13.31 Positive; score 12/27. Screening for alcohol abuse 309988635 Z13.39 Negative; AUDIT-C score is 0/12. Hyperlipidemia 13868521 E78.5 Lipid panel normal on last check; [...] adjust regimen as indicated. Hypertensive disorder 38 167737 I10 BP looks good on current regimen [...] office visit. Lower urin scott tract symptoms 359620736 R39.9 Most recent urine culture last month grew mixed bacteria from the genital skin, and did not indicate a pathologic al UTI. She was treated with antibiotic s at that time given her urinary symptoms, and has no residual symptoms. Prediabetes 259815404 R7 3.03 A1c is in the pre-diabet es range at 5.8%, indicating hyperglyce luis alfredo over the past 3 months. Not on medication to control sugar level. Advised patient to work on diet and exercise habits to reduce sugar levels and control weight. Repeat fasting glucose and check A1c in 3 months to monitor status or sooner as needed. Coronary arteriosclerosis 49721696 I25.119 She has known, nonobstruc tive coronary [...] not. I advised her to look into [facility] offices in the local area to see if any of their cardiologi sts do both. Thyroid fu nction tests abnormal 306043438 R79.89 Normal TSH with a low free T4 level and a low normal total T4 level in February without medication . She denies any symptoms of hypothyroi dism at this time. No changes recommende d. Repeat thyroid panel in 3 months or sooner as needed for problems or changes. Alkaline p hosphatase above reference range 437210916 R74.8 Alkaline phosphatas e level is elevated at 144, although it was last elevated in 2020. Will add an alkaline phosphatas e isoenzyme panel and GGT to her next labs in 3 months for further evaluation . Anxiety [id number] F41.9 Anxiety is higher than normal as she has not had contact with her daughter in some time. This has increased her worry and worsened her depression as well. Will renew her medication as requested as she does not wish to change anything at this point. Moderate r ecurrent major depression 52477045 F33.1 Anxiety seems to be more prominent, [...] need to make any changes. Stable angina 025922170 I20.89 She has been using ranolazine ER [...] . I advised her to check into [facility] in the local area to see if any of their cardiologi st do both. Renewed her ranolazine ER and reinforced the need to take this medication twice daily. History of fall 86720085 9 Z91.81 STEADI score 08/27. [id number] Radha Soriano MD [address] [address] 06/25/2024 08:33:28 06/29/2024 07:06:32 Prediabetes 118883495 R73.03 Hyperlipidemia 35004217 E78.5 Hypertensive disorder 38 118191 I10 Thyroid fu nction tests abnormal 271441088 R79.89 Alkaline p hosphatase above reference range 843538579 R74.8 [id number] Radha Soriano MD [address] [address] 04/11/2024 13:41:37 04/11/2024 14:53:58 Upper abdominal pain 90657895 R10.10 Her upper abdominal pain sounds like [...] term if possible. Lower abdominal pain 545 79984 R10.30 She is reporting lower, midline abdominal [...] to see if symptoms improve. Acute diarrhea 951635973 R19.7 Of note, she is still taking [...] e use of Imodium at this point. [id number] Radha Soriano MD [facility] [address] [place] [address] 07/17/2024 13:21:26 07/17/2024 14:22:12 Alkaline phosphatase above reference range 763880144 R74.8 Alkaline phosphatas e level remains mildly elevated at 133, but the isoenzyme panel was normal. ALT, AST and GGT are all normal. Will check a parathyroi d hormone level to assess for increased activity as she is worried about this being the underlying cause. No action is necessary at this time, and will continue to monitor. Acute diarrhea 677628338 R19.7 Resolved. Hyperlipidemia 19775311 E78.5 Lipid panel normal on last check; LDL is above 70. Continues on moderate dose Rosuvastat in. ASCVD risk score is 12.2%; this is worse than previous check. Encouraged healthier lifestyle habit to control lipid levels and weight. Will not change current dose of medication and plan to repeat panel in 6-12 months through her new PCP. Hypertensive disorder 38 121608 I10 BP looks good on current regimen [...] every office visit. Lower abdominal pain 545 99377 R10.30 She complains of lower abdominal pain [...] a GI once she is settled in [facility]. Prediabetes 859159436 R7 3.03 A1c is in the pre-diabet [...] as needed. Thyroid fu nction tests abnormal 577800482 R79.89 Normal TSH and total T4 level [...] these are positive. Upper abdominal pain 831 44457 R10.10 I still feel that her upper abdominal pain represents duodenitis or gastritis given her prior history. She also mentions that her back pain flares up when the abdominal pain flares up, leading me to suspect possible irritation of the retroperit oneum. She continues on omeprazole 40 mg twice daily, and has plans to follow-up with GI once she settles in [facility]. Urinary symptoms 5802576 08 R39.9 Her urine culture grew mixed bacteria from the genital skin, and does not typically indicate a UTI. However, given her reported symptoms, she was started on ciprofloxa renata 500 mg twice daily for 5 days. She is encouraged to work on adequate hydration and consider daily prophylaxi s with cranberry capsules. Symptoms improved but didn't resolve. Moderate r ecurrent major depression 33581637 F33.1 She has anxiety as well as [...] she establishe s. Psychoacti ve substance dependence 9116178 F19.20 She continues on a psychoacti ve [...] and will continue to monitor. Night sweats 48291281 R6 1 She reports night sweats, and [...] Jorge Member ID Guarantor Name 09/02/2024 1 [facility] - CAPITATION [facility] (MEDICARE REPLACEMENT/A DVANTAGE - HMO) [id number] Dora Barraza [id number] Dora Barraza 10/05/2022 1 [facility] - CAPITATION PLAN (MEDICARE REPLACEMENT/A DVANTAGE - HMO) [id number] Dora A Ju[address]inoette [id number] Dorasa Sahara Barraza Notes Date Note Type [...] control or leakage? No Radha Soriano MD [facility] [place], [address], [facility] 04/02/2024 16:15:48 04/11/2024 text/html Here for routine [...] 40 mg 2x/day. 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 Weakness, fatigue, poor appetite. Radha Soriano MD [facility] [place], [address], [facility] 04/12/2024 14:34:39 07/17/2024 text/html Here for routine [...] after a prolonged sore throat. Moving to [place] end of July; has an appointment with a new PCP, but needs to meet her first before requesting my records Radha Soriano MD [address] [place], [address], [facility] 07/19/2024 17:32:09 OBGyn Episode No OBEpisode recorded.
[2024-10-21 16:01] LABS: Troponin-I High Sensitivity < 2.7 ng/L (<3.5-17.0)
[2024-10-21 16:36] VITALS: BP 112/61; PULSE 63; RESP 18; TEMP 36.7; O2SAT 97
== END 2024-10-21 16:37 | disposition home or self-care (01) ==
PROVIDERS: Physician Assistant; Physician Assistant Medical; Emergency Provider Emergency Medicine; PCP Internal Medicine
DX: R07.89 Other chest pain (principal); Z03.818 Encounter for observation for suspected exposure to other biological agents ruled out
CPT/HCPCS: 36415; 71045; 80053; 83880; 84484; 85025; 87637; 93005; 99283

== ENCOUNTER → 2024-10-21 12:18 | Outpatient (BNV) | payer MEDICARE, SELFPAY | PROVIDERS: Emergency Provider Emergency Medicine; PCP Internal Medicine; Visit Provider Internal Medicine Cardiovascular Disease | DX: R94.31 Abnormal electrocardiogram [ECG] [EKG] (principal); R07.9 Chest pain, unspecified | CPT/HCPCS: 93010 ==

== ENCOUNTER → 2024-10-21 12:38 | Outpatient (BNV) | payer MEDICARE, SELFPAY | PROVIDERS: Visit Provider Radiology Diagnostic Radiology | DX: J84.9 Interstitial pulmonary disease, unspecified (principal) | CPT/HCPCS: 71045 ==

== ENCOUNTER 2024-12-24 11:21 | Outpatient (AMB) | payer MEDICARE, SELFPAY ==
[2024-12-24 11:19] VITALS: BP 118/56; PULSE 66; RESP 16; TEMP 36.7; O2SAT 97; BMI 27.5
--- NOTE | 2024-12-24 11:19 | MHC.PC.OV ---
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 Required: No Accompanied by: Self / Same As Patient Allergies acetaminophen (From PERCOCET) Allergy (Unknown, Verified 12/24/24 13:05) NAUSEA & VOMITING, HALLUCINATE morphine (MORPHINE) Allergy (Unknown, Verified 12/24/24 13:05) NAUSEA & VOMITING nitroglycerin (NITROGLYCERIN) Allergy (Unknown, Verified 12/24/24 13:05) VOMITING, vomit oxycodone (From PERCOCET) Allergy (Unknown, Verified 12/24/24 13:05) NAUSEA & VOMITING, HALLUCINATE Sulfa (Sulfonamide Antibiotics) (SULFA (SULFONAMIDE ANTIBIOTICS)) Allergy (Unknown, Verified 12/24/24 13:05) RASH sulfa Allergy (Mild, Uncoded 12/24/24 13:05) Unknown Medication List - Last Reconciled 12/24/24 by Bianka Terrazas PA-C albuterol sulfate 90 mcg/actuation (Ventolin HFA) 2 puffs inhalation Q4-6H PRN amoxicillin-pot clavulanate 875-125 mg 1 tab PO BID 10 days aspirin 81 mg PO DAILY buspirone 10 mg PO ONCE carvedilol 3.125 mg PO BID desvenlafaxine succinate ER 50 mg PO DAILY fexofenadine (Julia Allergy) 180 mg PO DAILY levothyroxine (Synthroid) 50 mcg PO DAILY omeprazole 40 mg PO BID prednisone 40 mg (2 x 20 mg) PO DAILY 5 days ranolazine ER 500 mg PO BID rosuvastatin 20 mg PO DAILY sertraline 100 mg PO DAILY Tobacco use date assessed: 10/16/24 Dental Screening Dental Screen Date: 10/16/24 HPI 2 month follow up HPI Details The patient is a 74-year-old female presenting with intermittent chest pain and sinusitis. She has been experiencing intermittent chest pain and has been referred to a respiratory medicine physician, where an echocardiogram revealed mild concentric left ventricular hypertrophy but was otherwise normal. The patient also reports sinus issues with nasal congestion and earaches, persisting despite multiple urgent care visits. She denies fever and reports intermittent symptoms, with normal findings on ear and throat examination. She has a history of allergic rhinitis and gastroesophageal reflux disease (GERD), with a referral to a washing machine repairer for further evaluation. Social History - Employment: Previously worked at [employer] but stopped due to frequent illness. [facility] Medical History (Updated 12/24/24 @ 13:08 by Bianka Terrazas PA-C) GERD (gastroesophageal reflux disease) Allergic rhinitis Left ventricular hypertrophy Sinusitis Thyroid disorder Anxiety Intermittent chest pain Skin lesions Abdominal pain Intermittent palpitations Establishing care with new doctor, encounter for Family History Father BP (high blood pressure) Mother BP (high blood pressure) CHF (congestive heart failure) Social History Housing: Apartment Alcohol intake: current Alcohol intake frequency: does not drink Patient Tobacco Use Status: Former Tobacco user service: No Current occupational status: unemployed Cognitive needs: No Hearing needs: Yes (b/l hearing aids) Vision needs: Yes (rx glasses) Questionnaire PHQ-9 Over the last 2 weeks, how often have you been bothered by any of the following problems? 1. Little interest or pleasure in doing things: not at all 2. Feeling down, depressed, or hopeless: not at all 3. Trouble falling or staying asleep, or sleeping too much: not at all 4. Feeling tired or having little energy: not at all 5. Poor appetite or overeating: not at all 6. Feeling bad about yourself - or that you are a failure or have let yourself or your family down: not at all 7. Trouble concentrating on things, such as reading the newspaper or watching television: not at all 8. Moving or speaking so slowly that other people could have noticed. Or the opposite - being so fidgety or restless that you have been moving around a lot more than usual: not at all 9. Thoughts that you would be better off or of hurting yourself in some way: not at all Total score: 0 Depression Screening Interpretation: Negative Depression Screening Done: Yes 61272 - PHQ-9 Billing: Yes Source: Developed by Drs. Ricky Romero, Estrella B.WContreras Denis and colleagues, with an educational linh from [employer]. Thrive Questionnaire Date Thrive assessed: 10/16/24 I am a: Patient What is your living situation today?: I have a steady place to live Within the past 12 months, did the food you bought not last and you didn't have the money to get more?: Never true Within the past 12 months, did you worry whether your food would run out before you got money to buy more?: Never true Do you have trouble paying for medicines?: No Do you have trouble getting transportation to medical appointments?: No Do you have trouble paying your heating and electricity bill?: No Do you have trouble taking care of your child, family member or friend?: No Do you have trouble with day-to-day activities such as bathing, preparing meals, shopping, managing finances, etc.?: No Are you currently unemployed and looking for a job?: No Are you interested in more education?: No Please select the resources that you would like help with: None THRIVE Score: 0 AUDIT C Alcohol Use Questionnaire (AUDIT-C) 1. How often do you have a drink containing alcohol?: Never 3. How often do you have six or more drinks on one occasion?: Never Total Score: 0 Score Reviewed/Action Taken: No HERRERA-7 AMB Questionnaire HERRERA-7 Date HERRERA - 7 assessed: 10/16/24 Feeling nervous, anxious, or on edge: 3 = Nearly every day Not being able to stop or control worryin = Nearly every day Worrying too much about different things: 3 = Nearly every day Trouble relaxin = Not at all Being so restless that it is hard to sit still: 2 = More than half the days Becoming easily annoyed or irritable: 0 = Not at all Feeling afraid as if something awful might happen: 2 = More than half the days Total HERRERA-7 score (0-4 normal; 5-9 mild; 10-14 moderate; 15-21 severe): 13 Source: Developed by Drs. Ricky Romero, Contreras Katz and colleagues, with an educational ilnh from [employer]. HERRERA-7 Assessment Billing HERRERA-7 Assessment Tool: HERRERA-7 Assessment 13835 Review of Systems Const Details: - Cardiovascular: Reports intermittent chest pain. Denies syncope or palpitations. - Respiratory: Reports nasal congestion and cough. Denies dyspnea or wheezing. - Ears, Nose, Throat: Reports earaches and nasal congestion. Denies sore throat. - General: Denies fever. All systems reviewed & are unremarkable except as noted in HPI and below Physical exam (Primary Care) Vital Signs: Last Vital Signs Temp 98.0 F 12/24/24 11:19 Pulse 66 12/24/24 11:19 Resp 16 12/24/24 11:19 BP 118/56 L 12/24/24 11:19 Pulse Ox 97 12/24/24 11:19 Oxygen Delivery Method Room Air 12/24/24 11:19 Care Plan Goal for BP management: <140/90 at Goal BMI result Body Mass Index 27.5 Tobacco/Smoking Status: Tobacco use Status Tobacco use date assessed 10/16/24 12/24/24 11:21 Patient Tobacco Use Status Former Tobacco user 12/24/24 11:21 PHQ-9: PHQ-9 Score PHQ-9: Total score 0 12/24/24 11:27 Depression Screening Interpretation: Negative Thrive Assessment: Date of Thrive Assessment Date Thrive assessed 10/16/24 12/24/24 11:21 Const Other: Appearance: Alert. Oriented X3. No acute distress. Head: Normal external exam. Normocephalic. Atraumatic. Eyes: Pupils are equal, round, and reactive to light. Extraocular movements intact. Conjunctiva and sclera normal. Eyelids normal. Ears: External auditory canal normal. Tympanic membranes normal. Throat: Pharynx normal. Uvula midline. Moist mucous membranes. Neck: Normal inspection. Neck supple. Full range of motion. No adenopathy. Thyroid Normal. No meningeal signs. No neck mass noted. Cardiovascular: Normal heart rate and rhythm. Heart sound normal. No murmurs noted. Pulses normal throughout. Respiratory: No respiratory distress. Painless inspiration. Breath sounds normal. No wheezes/rales/rhonchi noted. No accessory muscle usage noted or decreased air movement noted. Abdomen: Soft and nontender. No distention noted. No organomegaly noted. Back: No costovertebral angle tenderness. Full range of motion noted. Skin: Skin warm and dry. Normal skin color. Normal skin turgor. No rashes/lesions/lacerations noted. Extremities: No lower extremity edema. Extremities exhibit normal range of motion. Neuro: Oriented X 3. No motor deficit. No sensory deficit. Reflexes normal. Results Reviewed Results Reviewed: - Echocardiogram: Normal left ventricular size, mild concentric left ventricular hypertrophy, normal systolic function with ejection fraction of 60-65%, normal diastolic function, no wall motion abnormalities, normal right ventricle size, no aortic stenosis or regurgitation, no pulmonary hypertension, no pericardial effusion Coding Level of Care Code Est Pt Level 4 (78062) Complex EM visit Add On G2211 Diagnoses Intermittent chest pain R07.9 Sinusitis J32.9 Left ventricular hypertrophy I51.7 Allergic rhinitis J30.9 GERD (gastroesophageal reflux disease) K21.9 Additional Codes HERRERA-7 Assessment Billing - HERRERA-7 Assessment Tool: HERRERA-7 Assessment 10960 ([id number]) PHQ-9 - 03589 - PHQ-9 Billing: Yes ([id number]) Assessment & Plan Assessment & Plan (1) Intermittent chest pain: Code(s): R07.9 - Chest pain, unspecified Category: Medical Plan: The patient is experiencing intermittent chest pain and has been referred to a respiratory medicine physician for further evaluation. An echocardiogram was performed, showing mild concentric left ventricular hypertrophy but otherwise normal findings. The patient is scheduled for a stress test and follow-up with the respiratory medicine physician to determine the cause of the chest pain. (2) Sinusitis: Code(s): J32.9 - Chronic sinusitis, unspecified Category: Medical Plan: The patient reports sinus issues with nasal congestion and earaches, persisting despite multiple urgent care visits. Physical examination of the ears and throat was normal, and the patient was prescribed Augmentin and an albuterol inhaler for symptomatic relief. The patient was advised to use Julia for allergic symptoms and to follow up if symptoms persist. (3) Left ventricular hypertrophy: Code(s): I51.7 - Cardiomegaly Category: Medical Plan: The echocardiogram revealed mild concentric left ventricular hypertrophy, but overall cardiac function was normal. The patient is under cardiology care for further evaluation and management of this condition. (4) Allergic rhinitis: Code(s): J30.9 - Allergic rhinitis, unspecified Category: Medical Plan: The patient has a history of allergic rhinitis, which is being managed with Julia. She was advised to avoid prolonged use of Claritin due to potential rebound effects. (5) GERD (gastroesophageal reflux disease): Code(s): K21.9 - Gastro-esophageal reflux disease without esophagitis Category: Medical Plan: The patient has a history of gastroesophageal reflux disease (GERD) and has been referred to a washing machine repairer for further evaluation. She was advised to contact the washing machine repairer to schedule an appointment for further workup. Plan Plan Patient was informed and verbally consented to the use of an ambient scribe for clinic note documentation during this visit. 1. Intermittent Chest Pain The patient is experiencing intermittent chest pain and has been referred to a respiratory medicine physician for further evaluation. An echocardiogram was performed, showing mild concentric left ventricular hypertrophy but otherwise normal findings. The patient is scheduled for a stress test and follow-up with the respiratory medicine physician to determine the cause of the chest pain. 2. Sinusitis The patient reports sinus issues with nasal congestion and earaches, persisting despite multiple urgent care visits. Physical examination of the ears and throat was normal, and the patient was prescribed Augmentin and an albuterol inhaler for symptomatic relief. The patient was advised to use Julia for allergic symptoms and to follow up if symptoms persist. 3. Left Ventricular Hypertrophy The echocardiogram revealed mild concentric left ventricular hypertrophy, but overall cardiac function was normal. The patient is under cardiology care for further evaluation and management of this condition. 4. Allergic Rhinitis The patient has a history of allergic rhinitis, which is being managed with Julia. She was advised to avoid prolonged use of Claritin due to potential rebound effects. 5. Gastroesophageal Reflux Disease (Gerd) The patient has a history of gastroesophageal reflux disease (GERD) and has been referred to a washing machine repairer for further evaluation. She was advised to contact the washing machine repairer to schedule an appointment for further workup. During the visit, we discussed the patient's intermittent chest pain and the need for further evaluation by a respiratory medicine physician, including a stress test. We also addressed her sinusitis and prescribed Augmentin and an albuterol inhaler for symptomatic relief. The patient was advised to use Julia for allergic symptoms and to follow up if symptoms persist. We discussed her history of GERD and the referral to a washing machine repairer for further evaluation. The importance of follow-up appointments and medication adherence was emphasized. Medications: New albuterol sulfate 90 mcg/actuation (Ventolin HFA) 2 puffs inhalation Q4-6H PRN 8.5 grams 3RF shortness of breath or wheezing prednisone 40 mg (2 x 20 mg) PO DAILY 10 tabs 0RF 5 days amoxicillin-pot clavulanate 875-125 mg 1 tab PO BID 20 tabs 0RF 10 days fexofenadine (Julia Allergy) 180 mg PO DAILY 90 tabs 3RF Patient Instructions: - Take Augmentin twice daily for 10 days. - Use albuterol inhaler as needed for cough and shortness of breath. - Take Julia daily for allergy symptoms. - Schedule an appointment with the washing machine repairer for GERD evaluation. - Follow up with the respiratory medicine physician for stress test and further evaluation of chest pain. - Contact the clinic if symptoms worsen or do not improve.
--- OUTSIDE RECORDS SUMMARY | 2024-12-24 14:28 | XMS_ITS | Clinical Summary ---
Author Organization [facility] Address [address] [place] [address] Phone Care Team Providers Care Bulkhead Carpenter Name Role Phone Pcp, Unknown Primary Care Provider Unavailabl e Social History Tobacco Use Types Packs/Day Years Used Date Smoking Tobacco: Never Assessed Comments Unknown Sex and Gender Information Value Date Recorded Sex Assigned at Not on file Legal Sex Female 12:23 PM EST Gender Identity Not on file Sexual Orientation Not on file Plan of Treatment Not on file Medical Devices Not on file Insurance [facility] MEDICARE PPO BLUE REPLACEMENT [facility] MEDICARE PPO BLUE REPLACEMENT [address] [address] MEDICARE PPO BLUE REPLACEMENT [place] MEDICARE PPO BLUE REPLACEMENT Care Teams Bulkhead Carpenter Relationship Specialty Start Date End Date Pcp, Unknown PCP - General 06/22/17 Additional Source Comments The information contained in this document represents components of the legal health record. It is not the complete legal health record.[facility]
--- OUTSIDE RECORDS SUMMARY | 2024-12-24 14:28 | XMS_ITS | Patient Health Record ---
Author Organization [facility] Address [facility] [place] [address] Care Team Providers Care Stitch Bonder Machine Operator Helper Name Role Phone Higinio CUMMINGS, Dr. Torres Primary Care Provider VIC Real Unavailable [phone] Allergies Allergen (clinical drug ingredient) Drug/Non Drug [...] MG 1 tablet Orall y Once a day; Duration: 30 day(s) Unknown Aspirin 81 MG 1 tablet Orally Once a day Active Metoprolol Succinate ER 25 MG 1 tablet Orally Once a day/additional tablet if needed for palpitations - HR >110 Active Escitalopram Oxalate 20 MG 1 tablet Oral ly Once a day; Duration: 30 day(s) Unknown Social History Tobacco Use: [...] W/U Status Risk Notes Problem Supraventricular tachycardia (2589296) Supraventricular tachycardia (I47.1) Active confirmed Problem Electrocardiogram abnormal (589339461) Abnormal EKG (R94.31) Active confirmed Problem Essential hypertension (30549057) Essential (primary) hypertension (I10) Active confirmed [facility] 7667- Problem Palpitations (27559291) Palpitations (R00.2) Active confirmed [facility]44 7667- Problem Paroxysmal supraventricular tachycardia (84883530) Paroxysmal supraventricular tachycardia (I47.1) Active confirmed [facility]44 7667- Problem Hyperlipidemia (78000896) Hyperlipidemia (E78.5) Active confirmed [facility]44 7667- Problem Paroxysmal ventricular tachycardia (07230808) Paroxysmal ventricular tachycardia (I47.2) Active confirmed [facility]44 7667- Problem Atherosclerosis of coronary artery (806272055) Atherosclerosis of coronary artery (I25.10) Active confirmed [facility]-44 7667- Problem Tachycardia (2709467) Tachycardia, unspecified (R00.0) Problem resolved confirmed [facility]-44 7667- Problem Chest pain (13261655) Chest Pain Unspecified (786.50) Problem resolved confirmed [facility]-44 7667- Plan Of Treatment No Information Insurance Providers Payer Name Payer Address Payer Phone Subscriber Number Group Number Insured Name Patient Relationship to Insured Coverage Start Date Coverage End [place] [facility] [place] [address] [place], [place] [id number] Dora Barraza Self - patient is the insured Medical (General) History Medical History History ICD Code kidney stones Rt. Wrist sinus tachycardia chest pain angina (unstable) anxiety CAD GERD hyperlipidemia childhood illnesses of mumps, measles an d chickenpox palpitations hypertension-benign Surgical History Surgery Date(Month/Year) cholecystectomy Successful PTCA of the Prox. LAD IVET red ucing stenosis from 80%-0 08/16/11 Hospitalization History Reason Date(Month/Year) [facility] - angina 05/14/20
--- OUTSIDE RECORDS SUMMARY | 2024-12-24 14:28 | XMS_ITS | Patient Health Record ---
Author Organization [facility] Address [address] [place] [id number] Care Team Providers Care Front Desk Agent Name Role Phone DERREK FORTE Primary Care [...] Problem Status W/U Status Risk Notes Problem 21216415 Epigastric pain (R10.13) Active confirmed Problem 36991663 Weight loss (R63.4) Active confirmed Problem 60245954 Diarrhea, unspecified type (R19.7) Active confirmed Plan Of Treatment Pending Test Test Name Order Date LIVER PROFILE 01/14/2018 LIPASE 01/14/2018 CBC w/o DIFF 01/14/2018 STOOL WBC 02/15/2017 OVA & PARASITES (O&P) 02/15/2017 CULTURE, STOOL 02/15/2017 XR GI SERIES 01/14/2018 Future Test Test Name Order Date UPPER GI ENDOSCOPY 01/11/2017 Next Appt Details Provider Name:David kaplan , 02/11/2025 11:00:00 AM, [address] [place] [address], [address], [place], [address], Insurance Providers Payer Name Payer Address Payer Phone Subscriber Number Group Number Insured Name Patient Relationship to Insured Coverage Start Date Coverage End Date [employer] [address] [place] [phone] [id number] NEO WANG Self - patient is the insured Medical (General) History Medical History History ICD Code kidney stones right and left removed -19 80's coronary artery disease and stent placem ent 2014 colonoscopy within 10 years in [place], records to be obtained. Surgical History Surgery Date(Month/Year) cholecystectomy appendectomy for carcinoid
--- OUTSIDE RECORDS SUMMARY | 2024-12-24 14:28 | XMS_ITS | Encounter Summary ---
Author Organization [facility] Address [address] [place] [phone] Phone Care Team Providers Care Apricot Washer Name Role Phone Pcp, Unknown Primary Care Provider Unavailabl e Encounter Details Date Type Department Care Team (Late st Contact Info) Description 06/22/2017 Ancillary [facility] [address] [place] [phone] Ramo Salas MD [address] [place] [phone] Palpitation Social History Tobacco Use Types Packs/Day Years Used Date Smoking Tobacco: Never Assessed Comments Unknown Sex and Gender Information Value Date Recorded Sex Assigned at Not on file Legal Sex Female 12:23 PM EST Gender Identity Not on file Sexual Orientation Not on file documented as of this encounter Plan of Treatment Not on file documented as of this encounter Results * Holter Monitor 24 Hours (06/22/2017 12:32 PM EST) Anatomical Region Laterality Modality Heart Other Narrative 06/22/2017 1:08 PM EST 24-hour monitor: No symptoms reported. Baseline rhythm is sinus with a minimum heart rate of 38 maximum 127 average 52 bpm. Mild increase in supraventricular ectopy, about 320 beats in the 24 hours, with mainly isolated PACs and occasional brief runs of atrial tachycardia. Patient event markers were present, and these occurred during sinus rhythm and sinus rhythm with PACs. Impression: Abnormal 24-hour monitor. Will increase in supraventricular ectopy, with mainly single PACs and brief runs of atrial tachycardia. Patient event markers occurred during sinus rhythm. Ramo Salas MD [facility] ORDERABLES Final Result documented in this encounter Visit Diagnoses Diagnosis Palpitation Palpitations Palpitation Palpitations documented in this encounter Care Teams Apricot Washer Relationship Specialty Start Date End Date Pcp, Unknown PCP - General 06/22/17 documented as of this encounter Additional Source Comments The information contained in this document represents components of the legal health record. It is not the complete legal health record.[facility]
== END 2024-12-24 11:45 | disposition home or self-care (01) ==
LOC: HO.HMCSH 11:21
PROVIDERS: PCP Internal Medicine; Visit Provider Physician Assistant Medical
DX: R07.9 Chest pain, unspecified (principal); J32.9 Chronic sinusitis, unspecified; I51.7 Cardiomegaly; J30.9 Allergic rhinitis, unspecified; K21.9 Gastro-esophageal reflux disease without esophagitis

== ENCOUNTER → 2024-12-24 11:21 | Outpatient (BNVA) | payer MEDICARE, SELFPAY | PROVIDERS: PCP Internal Medicine; Visit Provider Physician Assistant Medical | DX: K21.9 Gastro-esophageal reflux disease without esophagitis (principal); R07.9 Chest pain, unspecified; J32.9 Chronic sinusitis, unspecified; I51.7 Cardiomegaly | CPT/HCPCS: 96127; 99212 ==

== ENCOUNTER 2025-02-16 09:09 | Outpatient (AMB) | payer MEDICARE, SELFPAY ==
--- OUTSIDE RECORDS SUMMARY | 2025-02-11 05:40 | XMS_ITS ---
Author Organization [facility] Address [address] [place] [address] Care Team Providers Care Skin Pass Operator Name Role Phone DERREK FORTE Primary Care Provider David Medina Jr Unavailable Allergies Allergen (clinical drug ingredient) Drug/Non Drug Allergy documented on EMR Reaction Allergy Type Onset Date Status Sulfa Unknown Drug Allergy Active acetaminophen / oxycodone percocet (uncoded) Unknown Allergy Active morphine morphine (uncoded) Unknown Allergy A ctive REASON FOR VISIT Patient presents today for screening colonoscopy,ABDOMINAL PAIN Medications Medication SIG (Take, Route, Frequency, Duration) Notes Start Date End Date Status Sertraline HCl 100 MG 1 tablet Orally On ce a day Active Ativan 0.5 MG Orally Not-Ta rhonda Cimetidine 400 MG 1 tablet at bedtime Orally Once a day; Duration: 30 Not-Taking Rosuvastatin Calcium Active Metoprolol Tartrate 50 MG 1 tablet with food Orally Twice a day Not-Taking Levothyroxine Sodium 50 MCG 1 tablet in the morning on an empty stomach Orally Once a day Active Desvenlafaxine ER Ac tive Carvedilol 3.125 MG 1 tablet with food Orally Twice a day Active busPIRone HCl 5 MG 1 tablet Orally Twic e a day Active Ranolazine ER 500 MG 1 tablet Orally Twi ce a day Active Omeprazole 20 MG 1 capsule 1/2 to 1 hour before morning meal Orally Once a day 02/11/2025 Active Aspirin 81 81 MG 1 tablet Orally Once a day Active amLODIPine Benzoate Active Immunizations Vaccine Route Administration Date Status Comme nts Influenza Unknown 02/11/2025 Refused Social History Tobacco Use: Social History Observation [...] Section Notes: former smoker over 31 years Problems Problem Type SNOMED Code ICD Code Onset Dates Problem Status W/U Status Risk Notes Problem Gastroesophageal reflux disease (677305045) GERD (gastroesopha geal reflux disease) (K21.9) Active confirmed Problem Screening for malignant neoplasm of colon (115742377) Encounter for screening for malignant neoplasm of colon (Z12.11) Active confirmed Vital Signs Temperature 98.6 degrees Fahrenheit 02/12/20 25 Blood pressure systolic 001 mm Hg 02/12/20 25 Blood pressure diastolic 01 mm Hg 025 Height 62.5 in 02/11/2025 Weight 159.8 lbs 02/11/2025 BMI 28.76 kg/m2 02/11/2025 Encounters Encounter Location Date Provider Diagnosis [facility] [address] [place] [phone] 02/11/2025 David Agarwal Jr GERD (gastroesophageal reflux disease) K21.9 and Encounter for screening for malignant neoplasm of colon Z12.11 Assessments Encounter Date Diagnosis (ICD Code) Assessment Notes Treatment Notes Treatment Clinical Notes Section Notes 02/11/2025 GERD (gastroesopha geal reflux disease) (ICD-10 - K21.9) We discussed her symptoms today. We discussed the GI causes for chest pain including gastroesophageal reflux disease. We have recommended she undergo upper endoscopy for further evaluation because of her persistent symptoms in spite of treatment with a proton pump inhibitor. We discussed risks and benefits of the procedure today. She understands these and agrees to proceed. This will be scheduled at her convenience. She is also due for colorectal cancer screening and this will be arranged. She understands risks and benefits as well. 02/11/2025 Encounter for screening for malignant neoplasm of colon (ICD-10 - Z12.11) We discussed her symptoms today. We discussed the GI causes for chest pain including gastroesophageal reflux disease. We have recommended she undergo upper endoscopy for further evaluation because of her persistent symptoms in spite of treatment with a proton pump inhibitor. We discussed risks and benefits of the procedure today. She understands these and agrees to proceed. This will be scheduled at her convenience. She is also due for colorectal cancer screening and this will be arranged. She understands risks and benefits as well. Plan Of Treatment Future Test Test Name Order Date UPPER GI ENDOSCOPY 02/11/2025 COLONOSCOPY 02/11/2025 Next Appt Details Follow Up: 1 Year, Reason: Provider Name:David Calix kaplan , 03/10/2025 10:00:00 AM, [address] [place] [address], [phone], Progress Notes * NEO WANG ADOB:[birth year] (74 yo F)Acc No.[id number]:02/11/2025 Progress Notes Patient: NEO ARMSTRONG Provider: Damir Agarwal MD :1950 A ge:74 Y S ex:Female Date:02/11/2025 Address:[address] [place] [address] Pcp:DERREK FORTE Subjective: * Chief Complaints: * 1 . Patient presents today for screening colonoscopy,ABDOMINAL PAIN. * HPI: N ew symptom(s): Oriana is a pleasant 74-year-old woman seen today in consultation. She has a history of gastroesophageal reflux disease and previously underwent upper endoscopy in 2017 which showed gastritis. She also has a history of coronary artery disease and underwent stent placement. She complains of chest pain and has had a cardiac evaluation which was negative including a stress test. She continues on pantoprazole 40 mg daily but still has symptoms. She has abnormal bowel movements with urgency and little warning when she has to go to the bathroom. There is no rectal bleeding. Weight and appetite have been stable. * ROS: G eneral/Constitutional: Change in appetite d enies. F atigue d enies. ? E NT: Patient denies d ifficulty swallowing. R espiratory: Patient denies s hortness of breath. C ardiovascular: Patient denies c hest pain. G astrointestinal: Comments S [facility] for details. G enitourinary: Difficulty urinating d enies. I ncontinence d enies. M usculoskeletal: Patient denies m uscle aches. S kin: Patient denies p ruritis. N eurologic: Patient denies l ow back pain. P sychiatric: Patient denies m ental or physical abuse. * Medical History: K idney stones right and left removed -, Coronary artery disease and stent placement 2013, colonoscopy within 10 years in [place], records to be obtained.02/11/2025 records were never received.. * Surgical History: c holecystectomy , appendectomy for carcinoid , Cataract Surgery . * Family History: F ather: , diagnosed with Heart disease. M other: , diagnosed with Heart disease. S iblings: brothers, diagnosed with Heart disease. * Social History: T obacco Use: T obacco Use/Smoking P atient is a f ormer smoker, H ow long has it been since you last smoked? > 10 years. D rugs/Alcohol: A lcohol Screen D id you have a drink containing alcohol in the past year? N o, P oints 0 , I nterpretation N egative. M iscellaneous: M arital status: . Occupation: retired. f ormer smoker over 31 years. * Medications: T aking Omeprazole 20 MG Capsule Delayed Release 1 capsule 1/2 to 1 hour before morning meal Orally Once a day , Taking Aspirin 81 81 MG Tablet Delayed Release 1 tablet Orally Once a day , Taking amLODIPine Benzoate , Taking Levothyroxine Sodium 50 MCG Tablet 1 tablet in the morning on an empty stomach Orally Once a day , Taking Desvenlafaxine ER , Taking busPIRone HCl 5 MG Tablet 1 tablet Orally Twice a day , Taking Ranolazine ER 500 MG Tablet Extended Release 12 Hour 1 tablet Orally Twice a day , Taking Carvedilol 3.125 MG Tablet 1 tablet with food Orally Twice a day , Taking Sertraline HCl 100 MG Tablet 1 tablet Orally Once a day , Taking Rosuvastatin Calcium , Not-Taking/PRN Metoprolol Tartrate 50 MG Tablet 1 tablet with food Orally Twice a day , Not-Taking/PRN Ativan 0.5 MG Tablet Orally , Not-Taking/PRN Cimetidine 400 MG Tablet 1 tablet at bedtime Orally Once a day , Medication List reviewed and reconciled with the patient * Allergies: S ulfa, morphine, percocet. Objective: * Vitals: W t: 159.8 lbs, Ht: 62.5 in, BMI: 28.76 Index, BP: 001/01 mm Hg, Temp: 98.6, Wt- k.48. * Examination: G eneral Examination: GENERAL APPEARANCE: i n no acute distress. HEAD: n ormocephalic. EYES: s clera non-icteric. ORAL CAVITY: m ucosa moist. NECK/THYROID: n o lymphadenopathy. SKIN: a nicteric. HEART: S 1, S2 normal, no murmurs. LUNGS: c lear to auscultation bilaterally. CHEST: n ormal shape and expansion. ABDOMEN: s oft, nontender, nondistended, bowel sounds present, no organomegaly . EXTREMITIES: n o clubbing, cyanosis, or edema. PSYCH: c ognitive function intact. Assessment: * Assessment: 1. G ERD (gastroesophageal reflux disease) - K21.9 (Primary) 2 . E ncounter for screening for malignant neoplasm of colon - Z12.11 We discussed her symptoms to day. We discussed the GI causes for chest pain including gastroesophageal reflux disease. We have recommended she undergo upper endoscopy for further evaluation because of her persistent symptoms in spite of treatment with a proton pump inhibitor. We discussed risks and benefits of the procedure today. She understands these and agrees to proceed. This will be scheduled at her convenience. She is also due for colorectal cancer screening and this will be arranged. She understands risks and benefits as well. Plan: * Treatment: ?Procedure: COLONOSCOPY (Ordered for 02/11/2025)* sched for 03/10/25 at 10:00 ammacmiralax 2.?Encounter for screening for malignant neoplasm of colon?Procedure: UPPER GI ENDOSCOPY (Ordered for 02/11/2025)* sched for 03/10/25 at 10:00 ammac ?Procedure: COLONOSCOPY (Ordered for 02/11/2025)* sched for 03/10/25 at 10:00 ammacmiralax * Immunizations: Influenza (Not administered - Refused: Patient decision) * Procedure Codes: 3 017F COLORECTAL CA SCREEN DOC REV, 1036F TOBACCO NON-USER, G9745 DOC RSN FOR NOT SCREEN/REC F/U HBP * Preventive Medicine: Counseling: C are goal follow-up plan: A zehcariah Normal BMI Follow-up D ietary management education, guidance, and counseling, B AK management provided Y es. Urinary Incontinence: U rinary Incontinence A ssessment: A bsent, P caio of care documented: N o, reason not specified. Screenings: F all Risk Screening F all Risk Assessment: N o falls in the past year, S creening: N o falls in the past year, A ssessment: N ot performed, no reason specified, P caio of Care: N ot documented, no reason specified. * Follow Up: 1 Year * * Sign off status: Completed true * Provider: Damir Agarwal MD Date: Generated for Alisa french/Shante/eTransmitting on: 04/18/2024 10:08 AM EST History and Physical Notes * HPI (History of Present Illness) Category Sub-Category Detail Notes Category Not es New symptom(s) Oriana is a pleasant 74-year-old woman seen today in consultation. She has a history of gastroesophageal reflux disease and previously underwent upper endoscopy in 2017 which showed gastritis. She also has a history of coronary artery disease and underwent stent placement. She complains of chest pain and has had a cardiac evaluation which was negative including a stress test. She continues on pantoprazole 40 mg daily but still has symptoms. She has abnormal bowel movements with urgency and little warning when she has to go to the bathroom. There is no rectal bleeding. Weight and appetite have been stable. Examination Category Sub-Category Detail Notes Category Not es General Examination GENERAL APPEARANCE: in no acute di stress HEAD: normocephalic EYES: sclera non-icteric NECK/THYROID: no lymphadenopathy HEART: S1, S2 normal, no mu rmurs CHEST: normal shape and exp ansion LUNGS: clear to auscultatio n bilaterally ABDOMEN: soft, nontender, non distended, bowel sounds present, no organomegaly SKIN: anicteric EXTREMITIES: no clubbing, cyanosi s, or edema PSYCH: cognitive function i ntact ORAL CAVITY: mucosa moist
[2025-02-16 09:10] VITALS: BP 115/58; PULSE 74; RESP 14; TEMP 36.6; O2SAT 99; BMI 28.0
--- NOTE | 2025-02-16 09:10 | MHC.PC.OV ---
Vital Signs 02/16/25 09:10 Height 5 ft 2.99 in Weight 158 lb BMI 28.0 BP 115/58 L Blood Pressure Location Rt brachial Position Sitting Respiration 14 Pulse 74 Pulse Source Pulse Oximeter Temp 97.9 F Temp Source Temporal Artery Scan Pulse Oximetry (%) 99 Oxygen Delivery Method Room Air Intake Visit Reasons: preop for cataract surgery left eye - see comment Fire Control Mechanic Required: No Accompanied by: Self / Same As Patient Allergies acetaminophen (From PERCOCET) Allergy (Unknown, Verified 02/16/25 09:11) NAUSEA & VOMITING, HALLUCINATE morphine (MORPHINE) Allergy (Unknown, Verified 02/16/25 09:11) NAUSEA & VOMITING nitroglycerin (NITROGLYCERIN) Allergy (Unknown, Verified 02/16/25 09:11) VOMITING, vomit oxycodone (From PERCOCET) Allergy (Unknown, Verified 02/16/25 09:11) NAUSEA & VOMITING, HALLUCINATE Sulfa (Sulfonamide Antibiotics) (SULFA (SULFONAMIDE ANTIBIOTICS)) Allergy (Unknown, Verified 02/16/25 09:11) RASH sulfa Allergy (Mild, Uncoded 02/16/25 09:11) Unknown Tobacco use date assessed: 10/16/24 Dental Screening Dental Screen Date: 10/16/24 [facility] Medical History GERD (gastroesophageal reflux disease) Allergic rhinitis Left ventricular hypertrophy Sinusitis Thyroid disorder Anxiety Intermittent chest pain Skin lesions Abdominal pain Intermittent palpitations Establishing care with new doctor, encounter for Surgical History History of endoscopy (~03/07/17) History of colonoscopy (~12/11/13) Family History Father BP (high blood pressure) Mother BP (high blood pressure) CHF (congestive heart failure) Social History Housing: Apartment Alcohol intake: current Alcohol intake frequency: does not drink Patient Tobacco Use Status: Former Tobacco user service: No Current occupational status: unemployed Cognitive needs: No Hearing needs: Yes (b/l hearing aids) Vision needs: Yes (rx glasses) Questionnaire PHQ-9 Over the last 2 weeks, how often have you been bothered by any of the following problems? 1. Little interest or pleasure in doing things: not at all 2. Feeling down, depressed, or hopeless: not at all 3. Trouble falling or staying asleep, or sleeping too much: not at all 4. Feeling tired or having little energy: not at all 5. Poor appetite or overeating: not at all 6. Feeling bad about yourself - or that you are a failure or have let yourself or your family down: not at all 7. Trouble concentrating on things, such as reading the newspaper or watching television: not at all 8. Moving or speaking so slowly that other people could have noticed. Or the opposite - being so fidgety or restless that you have been moving around a lot more than usual: not at all 9. Thoughts that you would be better off or of hurting yourself in some way: not at all Total score: 0 Depression Screening Interpretation: Negative Depression Screening Done: Yes 14285 - PHQ-9 Billing: Yes Source: Developed by Drs. Ricky Romero, Estrella Jj, Contreras Wang and colleagues, with an educational linh from [employer]. Thrive Questionnaire Date Thrive assessed: 10/16/24 I am a: Patient What is your living situation today?: I have a steady place to live Within the past 12 months, did the food you bought not last and you didn't have the money to get more?: Never true Within the past 12 months, did you worry whether your food would run out before you got money to buy more?: Never true Do you have trouble paying for medicines?: No Do you have trouble getting transportation to medical appointments?: No Do you have trouble paying your heating and electricity bill?: No Do you have trouble taking care of your child, family member or friend?: No Do you have trouble with day-to-day activities such as bathing, preparing meals, shopping, managing finances, etc.?: No Are you currently unemployed and looking for a job?: No Are you interested in more education?: No Please select the resources that you would like help with: None THRIVE Score: 0 AUDIT C Alcohol Use Questionnaire (AUDIT-C) 1. How often do you have a drink containing alcohol?: Never 3. How often do you have six or more drinks on one occasion?: Never Total Score: 0 Score Reviewed/Action Taken: No HERRERA-7 AMB Questionnaire HERRERA-7 Date HERRERA - 7 assessed: 10/16/24 Feeling nervous, anxious, or on edge: 3 = Nearly every day Not being able to stop or control worryin = Nearly every day Worrying too much about different things: 3 = Nearly every day Trouble relaxin = Not at all Being so restless that it is hard to sit still: 2 = More than half the days Becoming easily annoyed or irritable: 0 = Not at all Feeling afraid as if something awful might happen: 2 = More than half the days Total HERRERA-7 score (0-4 normal; 5-9 mild; 10-14 moderate; 15-21 severe): 13 Source: Developed by Drs. Ricky Romero, Estrella Jj, Contreras Wang and colleagues, with an educational linh from [employer]. HERRERA-7 Assessment Billing HERRERA-7 Assessment Tool: HERRERA-7 Assessment 78639 Physical exam (Primary Care) Vital Signs: Last Vital Signs Temp 97.9 F 02/16/25 09:10 Pulse 74 02/16/25 09:10 Resp 14 02/16/25 09:10 BP 115/58 L 02/16/25 09:10 Pulse Ox 99 02/16/25 09:10 Oxygen Delivery Method Room Air 02/16/25 09:10 BMI result Body Mass Index 28.0 Tobacco/Smoking Status: Tobacco use Status Tobacco use date assessed 10/16/24 02/16/25 09:12 Patient Tobacco Use Status Former Tobacco user 02/16/25 09:12 PHQ-9: PHQ-9 Score PHQ-9: Total score 0 02/16/25 09:38 Depression Screening Interpretation: Negative Thrive Assessment: Date of Thrive Assessment Date Thrive assessed 10/16/24 02/16/25 09:12 Office Procedures Flu Questionnaire Does the patient have a severe egg allergy?: No Does the patient have severe life threatening allergies?: No Does the patient have a fever or illness today?: No Has the patient ever had Guillain-Pisgah Syndrome?: No Has the patient ever had any past reaction to a flu shot?: No Immunizations Fluarix [id number] (PF) 45 mcg (15 mcg x 3)/0.5 mL IM syringe Performing Provider: Carlos Maher MD Performing Location: [facility] [place] [facility] Documented (not given) by: JEAN Vann on 02/16/25 09:39 Reason Not Given: Patient Refused Coding Level of Care Code Est Pt Level 4 (16411) Complex EM visit Add On G2211 Diagnoses Essential hypertension I10 Cataract H26.9 Additional Codes HERRERA-7 Assessment Billing - HERRERA-7 Assessment Tool: HERRERA-7 Assessment 72505 ([id number]) PHQ-9 - 31533 - PHQ-9 Billing: Yes ([id number]) Assessment & Plan Assessment & Plan (1) Essential hypertension: Code(s): I10 - Essential (primary) hypertension Plan: BP in range (2) Cataract: Code(s): H26.9 - Unspecified cataract Plan: As below, proceed to surgery Plan History of Present Illness - The patient is a 74-year-old female presenting for preoperative clearance for a scheduled left eye cataract surgery on February 26. - A procedure on the other eye is planned for May. - Her medications were reviewed and include amlodipine, aspirin, buspirone, carvedilol, an antidepressant, an allergy medication, Synthroid for thyroid, omeprazole, a statin, and sertraline, all taken daily. - She has seen a inventory control coordinator and her cardiac evaluation, including a stress test, was normal. - The patient also has severe acid reflux with associated pain and is scheduled to see Dr. Agarwal on the for an endoscopy and colonoscopy. 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 Review of Systems - Gastrointestinal: Reports severe acid reflux and associated pain. Physical Exam General: Cooperative and healthy appearing Nutritional Appearance: Well nourished Orientation/consciousness: Patient oriented x3 Limitations: No limitations Head: Normal to inspection General: Appearance normal, both eyes and all related structures Neck: Normal visual inspection Chest: Normal palpation of entire chest wall Respiratory: N ormal respiratory effort Neurology: Patient oriented x3, no focal deficits Results - Cardiology: The patient reports a recent cardiac evaluation, including a stress test, with normal results. Plan - Orders for preoperative blood work and an EKG will be placed. - The patient was instructed to complete the ordered tests at [facility]. - Upon receipt of the test results, surgical clearance will be finalized and sent to the set up inspector. - The patient was advised to continue all current medications until the night before surgery and to restart them all after the procedure. - The patient will proceed with her scheduled appointment on the for a planned endoscopy and colonoscopy for evaluation of severe acid reflux. - The patient has received her flu shot. Discussion Notes I have discussed the plan for preoperative clearance before the patient's upcoming left eye cataract surgery. I explained that blood work and an EKG are required and can be completed at [facility] on a walk-in basis. I informed her that once the results are available, I will review them and send the clearance to her eye doctor. We reviewed her medication list, and I advised her to continue all medications until the night before the procedure and restart them afterward, as no interruption is necessary. I clarified that the cataract procedure is considered minor surgery and is likely performed with MAC anesthesia, not general anesthesia. The patient confirmed all her questions were answered. Patient Instructions - Please go to [facility] to get your blood work and an EKG completed for your surgery clearance. - You do not need an appointment for these tests. - Once we receive the results, we will send the clearance to your eye doctor. - Continue taking all of your medications, including your daily aspirin, up until the night before your surgery. - You may restart all your medications after your surgery is finished. - Follow up with Dr. Agarwal on the for your scheduled endoscopy and colonoscopy. Orders: Orders Basic Metabolic Panel Today I10 - Essential (primary) hypertension Complete Blood Count no Diff Today I10 - Essential (primary) hypertension Lipid Panel Today I10 - Essential (primary) hypertension Thyroid Stimulating Hormone Today I10 - Essential (primary) hypertension Influenza [id number] Immunization Today Z23 - Encounter for immunization Liver Panel Today I10 - Essential (primary) hypertension UA and rflx microscopic Today I10 - Essential (primary) hypertension ECG 12 lead EKG Today H26.9 - Unspecified cataract, I10 - Essential (primary) hypertension
--- OUTSIDE RECORDS SUMMARY | 2025-02-16 10:08 | XMS_ITS | Patient Health Record ---
Author Organization [facility] - [address] Address [address] [place] [address] Care Team Providers Care Group Leader Semiconductor Testing Name Role Phone Higinio CUMMINGS, Dr. Torres Primary Care Provider VIC Real Unavailable [phone] Allergies Allergen (clinical drug ingredient) Drug/Non Drug [...] W/U Status Risk Notes Problem Supraventricular tachycardia (7698366) Supraventricular tachycardia (I47.1) Active confirmed Problem Electrocardiogram abnormal (468155431) Abnormal EKG (R94.31) Active confirmed Problem Essential hypertension (78288026) Essential (primary) hypertension (I10) Active confirmed [facility]-44 7667- Problem Palpitations (61552802) Palpitations (R00.2) Active confirmed [facility]-44 7667- Problem Paroxysmal supraventricular tachycardia (99637010) Paroxysmal supraventricular tachycardia (I47.1) Active confirmed [facility]-44 7667- Problem Hyperlipidemia (18920536) Hyperlipidemia (E78.5) Active confirmed [facility]-44 7667- Problem Paroxysmal ventricular tachycardia (71843724) Paroxysmal ventricular tachycardia (I47.2) Active confirmed [facility]-44 7667- Problem Atherosclerosis of coronary artery (909045128) Atherosclerosis of coronary artery (I25.10) Active confirmed [facility]-44 7667- Problem Tachycardia (4761282) Tachycardia, unspecified (R00.0) Problem resolved confirmed [facility]-44 7667- Problem Chest pain (43819700) Chest Pain Unspecified (786.50) Problem resolved confirmed [facility]-44 7667- Plan Of Treatment No Information Insurance Providers Payer Name Payer Address Payer Phone Subscriber Number Group Number Insured Name Patient Relationship to Insured Coverage Start Date Coverage End Date [facility] [id number] [place], [place] [id number] Dora Barraza Self - patient is the insured Medical (General) History Medical History History ICD Code kidney stones Rt. Wrist sinus tachycardia chest pain angina (unstable) anxiety CAD GERD hyperlipidemia childhood illnesses of mumps, measles an d chickenpox palpitations hypertension-benign Surgical History Surgery Date(Month/Year) Successful PTCA of the Prox. LAD IVET re ducing stenosis from 80%-0 08/16/11 cholecystectomy Hospitalization History Reason Date(Month/Year) [facility] - angina 05/14/20
--- OUTSIDE RECORDS SUMMARY | 2025-02-16 10:08 | XMS_ITS | Encounter Summary ---
Author Organization [facility] Address [address] [place] [address] Phone Care Team Providers Care Industry Analyst Name Role Phone Pcp, Unknown Primary Care Provider Unavailabl e Encounter Details Date Type Department Care Team (Late st Contact Info) Description 06/22/2017 Ancillary [facility] [address] [place] [address] Ramo Salas MD [address] [place] [id number] Palpitation Social History Tobacco Use Types Packs/Day [...] Palpitations documented in this encounter Care Teams Industry Analyst Relationship Specialty Start Date End Date Pcp, Unknown PCP - General 06/22/17 documented as of this encounter Additional Source Comments The information contained in this document represents components of the legal health record. It is not the complete legal health record.[facility]
--- OUTSIDE RECORDS SUMMARY | 2025-02-16 10:08 | XMS_ITS | Clinical Summary ---
Author Organization [facility] Address [address] [place] [address] Phone Care Team Providers Care Security Shift Supervisor Name Role Phone Pcp, Unknown Primary Care [...] file Medical Devices Not on file Insurance [facility] MEDICARE PPO BLUE REPLACEMENT [facility] MEDICARE PPO BLUE REPLACEMENT [place] [address] MEDICARE PPO BLUE REPLACEMENT [place] BLUE REPLACEMENT Care Teams Security Shift Supervisor Relationship Specialty Start Date End Date Pcp, Unknown PCP - General 06/22/17 Additional Source Comments The information contained in this document represents components of the legal health record. It is not the complete legal health record.[facility]
--- OUTSIDE RECORDS SUMMARY | 2025-02-16 10:08 | XMS_ITS | Patient Health Record ---
Author Organization [facility] Address [address] [place] [address] Care Team Providers Care Hand Frame Surgical Elastic Knitter Name Role Phone JANN, DERREK Primary Care Provider David Medina Jr Unavailable [phone] Allergies Allergen (clinical drug ingredient) Drug/Non Drug Allergy documented on EMR Reaction Allergy Type Onset Date Status Sulfa Unknown Drug Allergy Active acetaminophen / oxycodone percocet (uncoded) Unknown Allergy Active morphine morphine (uncoded) Unknown Allergy A ctive Reason For Referral No Information Medications Medication SIG (Take, Route, Frequency, Duration) Notes Start Date End Date Status Omeprazole 20 MG 1 capsule 1/2 to 1 hour before morning meal Orally Once a day 02/11/2025 Active Levothyroxine Sodium 50 MCG 1 tablet in the morning on an empty stomach Orally Once a day Active Desvenlafaxine ER Ac tive Aspirin 81 81 MG 1 tablet Orally Once a day Active amLODIPine Benzoate Active Carvedilol 3.125 MG 1 tablet with food Orally Twice a day Active Sertraline HCl 100 MG 1 tablet Orally On ce a day Active busPIRone HCl 5 MG 1 tablet Orally Twic e a day Active Ranolazine ER 500 MG 1 tablet Orally Twi ce a day Active Ativan 0.5 MG Orally Not-Ta rhonda Cimetidine 400 MG 1 tablet at bedtime Orally Once a day; Duration: 30 Not-Taking Rosuvastatin Calcium Active Metoprolol Tartrate 50 MG 1 tablet with food Orally Twice a day Not-Taking Immunizations Vaccine Route Administration Date Status Comme nts Influenza Unknown 01/11/2017 Administered Influenza Unknown 02/11/2025 Refused Social History Tobacco [...] 31 years former smoker over 31 years former smoker over 31 years Problems Problem Type SNOMED Code ICD Code Onset Dates Problem Status W/U Status Risk Notes Problem Epigastric pain (95236751) Epigastric pain (R10.13) Active confirmed Problem Screening for malignant neoplasm of colon (973342225) Encounter for screening for malignant neoplasm of colon (Z12.11) Active confirmed Problem Weight loss (657021155) Weight loss (R63.4) Active confirmed Problem Gastroesophageal reflux disease (421252420) GERD (gastroesophag eal reflux disease) (K21.9) Active confirmed Problem Diarrhea (33697840) Diarrhea, unspecified type (R19.7) Active confirmed Vital Signs Temperature 98.6 degrees Fahrenheit 02/11/2025 Blood pressure diastolic 01 mm Hg 02/11/2025 Height 62.5 in 02/11/2025 Blood pressure systolic 001 mm Hg 02/11/2025 Weight 159.8 lbs 02/11/2025 BMI 28.76 kg/m2 02/11/2025 Encounters Encounter Location Date Provider Diagnosis [facility] [address] [facility] [address] [place] [phone] 02/11/2025 David Agarwal Jr GERD (gastroesophageal reflux disease) K21.9 and Encounter for screening for malignant neoplasm of colon Z12.11 Assessments Encounter Date Diagnosis (ICD Code) Assessment Notes Treatment Notes Treatment Clinical Notes Section Notes 02/11/2025 Encounter for screening for malignant neoplasm [...] understands risks and benefits as well. 02/11/2025 GERD (gastroesopha geal reflux disease) (ICD-10 [...] and benefits as well. Plan Of Treatment Pending Test Test Name Order Date LIVER PROFILE 01/14/2018 LIPASE 01/14/2018 CBC w/o DIFF 01/14/2018 STOOL WBC 02/15/2017 OVA & PARASITES (O&P) 02/15/2017 CULTURE, STOOL 02/15/2017 XR GI SERIES 01/14/2018 Future Test Test Name Order Date UPPER GI ENDOSCOPY 01/11/2017 UPPER GI ENDOSCOPY 02/11/2025 COLONOSCOPY 02/11/2025 Next Appt Details Provider Name:David kaplan Jr, 03/10/2025 10:00:00 AM, [address] [place] [address] , [place], [place], [phone], Insurance Providers Payer Name Payer Address Payer Phone Subscriber Number Group Number Insured Name Patient Relationship to Insured Coverage Start Date Coverage End Date [facility] [address] [place], [place] [id number] NEO WANG Self - patient is the insured MEDICAID OF [facility] [address] [place] [address] [id number] NEO WANG Self - patient is the insured Medical (General) History Medical History History ICD Code kidney stones right and left removed -19 80's coronary artery disease and stent placem ent 2013 colonoscopy within 10 years in [place], records to be obtained.02/11/2025 records were never received. Surgical History Surgery Date(Month/Year) Cataract Surgery appendectomy for carcinoid cholecystectomy
== END 2025-02-16 10:04 | disposition home or self-care (01) ==
LOC: HO.HMCSH 09:09
PROVIDERS: PCP Internal Medicine; Visit Provider Internal Medicine
DX: I10 Essential (primary) hypertension (principal); H26.9 Unspecified cataract; Z23 Encounter for immunization

== ENCOUNTER → 2025-02-16 09:09 | Outpatient (BNVA) | payer MEDICARE, SELFPAY | PROVIDERS: PCP Internal Medicine; Visit Provider Internal Medicine | DX: I10 Essential (primary) hypertension (principal); H26.9 Unspecified cataract; Z28.21 Immunization not carried out because of patient refusal | CPT/HCPCS: 90471; 96127; 99212 ==

== ENCOUNTER → 2025-02-17 08:32 | Outpatient (REF) | payer MEDICARE, SELFPAY ==
--- NOTE | 2025-02-17 08:35 | ECG_ITS ---
Test Reason : PALPITATIONS Blood Pressure : */* mmHG Vent. Rate : 67 BPM Atrial Rate : 67 BPM P-R Int : 140 ms QRS Dur : 80 ms QT Int : 414 ms P-R-T Axes : 9 24 27 degrees QTcB Int : 437 ms Sinus rhythm with Premature supraventricular complexes Nonspecific ST and T wave abnormality Abnormal ECG When compared with ECG of 21-Oct-2024 12:18, Premature supraventricular complexes are now Present Referred By: Bianka Terrazas Electronically Signed By: Gopi Noriega
[2025-02-17 08:47] LABS: MANUAL DIFF FLAG NO
--- OUTSIDE RECORDS SUMMARY | 2025-02-17 08:55 | XMS_ITS | Encounter Summary ---
Author Organization [facility] Address [address] [place] [address] Phone Care Team Providers Care Deblocker Name Role Phone Pcp, Unknown Primary Care Provider Unavailabl e Encounter Details Date Type Department Care Team (Late st Contact Info) Description 06/22/2017 Ancillary [facility] [address] [place] [phone] Ramo Salas MD [address] [place] [address] Palpitation Social History Tobacco Use Types Packs/Day [...] Palpitations documented in this encounter Care Teams Deblocker Relationship Specialty Start Date End Date Pcp, Unknown PCP - General 06/22/17 documented as of this encounter Additional Source Comments The information contained in this document represents components of the legal health record. It is not the complete legal health record.[facility]
--- OUTSIDE RECORDS SUMMARY | 2025-02-17 08:55 | XMS_ITS | Patient Health Record ---
Author Organization [facility] - [address] Address [address] [place] [address] Care Team Providers Care Maintenance Groundskeeper Name Role Phone Higinio CUMMINGS, Dr. Torres Primary Care Provider VIC Real Unavailable [phone] Allergies Allergen (clinical drug ingredient) Drug/Non Drug [...] W/U Status Risk Notes Problem Supraventricular tachycardia (2010407) Supraventricular tachycardia (I47.1) Active confirmed Problem Electrocardiogram abnormal (392368715) Abnormal EKG (R94.31) Active confirmed Problem Essential hypertension (60125766) Essential (primary) hypertension (I10) Active confirmed [facility]-44 7667- Problem Palpitations (00086572) Palpitations (R00.2) Active confirmed [facility]-44 7667- Problem Paroxysmal supraventricular tachycardia (50162594) Paroxysmal supraventricular tachycardia (I47.1) Active confirmed [facility]-44 7667- Problem Hyperlipidemia (59481076) Hyperlipidemia (E78.5) Active confirmed [facility]-44 7667- Problem Paroxysmal ventricular tachycardia (45876151) Paroxysmal ventricular tachycardia (I47.2) Active confirmed [facility]-44 7667- Problem Atherosclerosis of coronary artery (266323332) Atherosclerosis of coronary artery (I25.10) Active confirmed [facility]-44 7667- Problem Tachycardia (7777663) Tachycardia, unspecified (R00.0) Problem resolved confirmed [facility]-44 7667- Problem Chest pain (14655568) Chest Pain Unspecified (786.50) Problem resolved confirmed [facility]-44 7667- Plan Of Treatment No Information Insurance Providers Payer Name Payer Address Payer Phone Subscriber Number Group Number Insured Name Patient Relationship to Insured Coverage Start Date Coverage End Date [facility] [address] [place], [place] [id number] Dora Barraza Self - patient is the insured Medical (General) History Medical History History ICD Code kidney stones Rt. Wrist sinus tachycardia chest pain angina (unstable) anxiety CAD GERD hyperlipidemia childhood illnesses of mumps, measles an d chickenpox palpitations hypertension-benign Surgical History Surgery Date(Month/Year) Successful PTCA of the Prox. LAD IVET re ducing stenosis from 80%-0 08/16/11 cholecystectomy Hospitalization History Reason Date(Month/Year) [facility] - angina 05/14/20
--- OUTSIDE RECORDS SUMMARY | 2025-02-17 08:56 | XMS_ITS | Clinical Summary ---
Author Organization [facility] Address [address] [place] [address] Phone Care Team Providers Care Plunger Shovel Operator Name Role Phone Pcp, Unknown Primary Care [...] file Medical Devices Not on file Insurance [facility] MEDICARE PPO BLUE REPLACEMENT [facility] MEDICARE PPO BLUE [place] [address] [address] [place] [address] MEDICARE PPO BLUE REPLACEMENT [place] MEDICARE P[place] BLUE REPLACEMENT Care Teams Plunger Shovel Operator Relationship Specialty Start Date End Date Pcp, Unknown PCP - General 06/22/17 Additional Source Comments The information contained in this document represents components of the legal health record. It is not the complete legal health record.[facility]
--- OUTSIDE RECORDS SUMMARY | 2025-02-17 08:56 | XMS_ITS | Patient Health Record ---
Author Organization [facility] Address [address] [place] [address] Care Team Providers Care Electrician Master Name Role Phone JANN, DERREK Primary Care Provider David Medina Jr Unavailable [phone] Allergies Allergen (clinical drug ingredient) Drug/Non Drug [...] W/U Status Risk Notes Problem Epigastric pain (60478777) Epigastric pain (R10.13) Active confirmed Problem Screening for malignant neoplasm of colon (249188151) Encounter for screening for malignant neoplasm of colon (Z12.11) Active confirmed Problem Weight loss (036860169) Weight loss (R63.4) Active confirmed Problem Gastroesophageal reflux disease (861313128) GERD (gastroesophag eal reflux disease) (K21.9) Active confirmed Problem Diarrhea (25057092) Diarrhea, unspecified type (R19.7) Active confirmed Vital Signs Temperature 98.6 degrees Fahrenheit 02/11/2025 Blood pressure diastolic 01 mm Hg 02/11/2025 Height 62.5 in 02/11/2025 Blood pressure systolic 001 mm Hg 02/11/2025 Weight 159.8 lbs 02/11/2025 BMI 28.76 kg/m2 02/11/2025 Encounters Encounter Location Date Provider Diagnosis [facility] [address] [facility] [address] [place] [id number] 02/11/2025 David Agarwal Jr GERD (gastroesophageal reflux [...] Provider Name:David kaplan Jr, 03/10/2025 10:00:00 AM, [address] [place] [address] , [place], [place], [phone], Insurance Providers Payer Name Payer Address Payer Phone Subscriber Number Group Number Insured Name Patient Relationship to Insured Coverage Start Date Coverage End Date [facility] [address] [place], [place] [id number] NEO WANG Self - patient is the insured MEDICAID OF [facility] [address] [place] [address] [id number] NEO WANG Self - patient is the insured Medical (General) History Medical History History ICD Code kidney stones right and left removed -19 80's coronary artery disease and stent placem ent 2013 colonoscopy within 10 years in [place], records to be obtained.02/11/2025 records were never received. Surgical History Surgery Date(Month/Year) Cataract Surgery appendectomy for carcinoid cholecystectomy
[2025-02-17 09:03] LABS: Hematocrit 36.9 % (37.0-47.0); Hemoglobin 11.8 g/dl (12.0-16.0); Imm Gran Abs Auto 0.01 X10*3/uL (0.00-0.03); Imm Gran Pct Auto 0.2 % (0.0-0.4); Lymphocytes Absolute Auto 1.5 X10*3/uL (1.2-4.9); Mean Corpuscular HGB Conc 32.0 g/dl (31.0-35.0); Mean Corpuscular Hemoglobin 27.2 pg (27.0-33.0); Mean Corpuscular Volume 85.0 fL (80.0-98.0); NRBC Abs Auto 0.000 X10*3/uL (0.0-0.012); NRBC Pct Auto 0.0 /100WBC (0.0-0.2); Platelet Count 191 X10*3/uL (160-400); Red Blood Count 4.34 X10*6/uL (4.20-5.50); White Blood Count 6.2 X10*3/uL (4.8-10.8)
[2025-02-17 09:25] LABS: Appearance Urine Clear; Glucose Urine UA Negative (Negative); PH 7.5 (5.0-9.0); Specific Gravity - Urine 1.015 (1.005-1.025); UMIC TRIGGER UA YES
[2025-02-17 09:28] LABS: Alanine Aminotransferase 22 U/L (0-31); Albumin Level 4.4 g/dL (3.5-5.0); Alkaline Phosphatase 137 U/L (39-117); Aspartate Amino Transferase 28 U/L (5-31); Total Protein 6.7 g/dL (6.5-8.0)
[2025-02-17 09:33] LABS: Alanine Aminotransferase 22 U/L (0-31); Albumin Level 4.5 g/dL (3.5-5.0); Alkaline Phosphatase 138 U/L (39-117); Anion Gap 9 (12-20); Aspartate Amino Transferase 29 U/L (5-31); Blood Urea Nitrogen 12 mg/dL (9-16); Calcium 9.0 mg/dL (8.4-10.2); Carbon Dioxide 28 mmol/L (22-29); Chloride 109 mmol/L (96-108); Cholesterol 158 mg/dL (<200); Estimated Glomerular Filt Rate > 60; HDL Cholesterol 49 mg/dL (>40); Magnesium 2.3 mg/dL (1.6-2.6); Potassium 4.2 mmol/L (3.3-5.1); Sodium 142 mmol/L (135-145); Total Protein 6.9 g/dL (6.5-8.0); Triglycerides 110 mg/dL (<150)
[2025-02-17 09:49] LABS: Thyroid Stimulating Hormone 1.47 uIU/mL (0.32-4.0)
[2025-02-17 09:57] LABS: Folate 13.9 ng/mL (> or = 4.0); Vitamin B12 290 pg/mL (200-900)
== END ==
LOC: HO.CARD 08:32
PROVIDERS: Physician Assistant Medical; PCP Internal Medicine; Visit Provider Internal Medicine
DX: Z00.00 Encounter for general adult medical examination without abnormal findings (principal); R00.2 Palpitations; I10 Essential (primary) hypertension; Z13.1 Encounter for screening for diabetes mellitus
CPT/HCPCS: 36415; 80048; 80061; 80076; 81001; 82306; 82607; 82746; 83036; 83735; 84443; 85025; 86140; 93005

== ENCOUNTER → 2025-02-17 08:35 | Outpatient (BNV) | payer MEDICARE, SELFPAY | PROVIDERS: PCP Internal Medicine; Visit Provider Internal Medicine Cardiovascular Disease | DX: I49.1 Atrial premature depolarization (principal) | CPT/HCPCS: 93010 ==

== ENCOUNTER 2025-03-10 07:40 | Day surgery (SDC) | payer MEDICARE, SELFPAY ==
--- OUTSIDE RECORDS SUMMARY | 2025-02-25 17:41 | XMS_ITS | Patient Health Record ---
Author Organization [facility] [address] Address [address] [place] [address] Care Team Providers Care Economics Consultant Name Role Phone Higinio CUMMINGS, Dr. Torres Primary Care Provider VIC Real Unavailable [phone] Allergies Allergen (clinical drug ingredient) Drug/Non Drug [...] W/U Status Risk Notes Problem Supraventricular tachycardia (1732180) Supraventricular tachycardia (I47.1) Active confirmed Problem Electrocardiogram abnormal (799612632) Abnormal EKG (R94.31) Active confirmed Problem Essential hypertension (00445791) Essential (primary) hypertension (I10) Active confirmed [id number] Problem Palpitations (82777696) Palpitations (R00.2) Active confirmed [id number] Problem Paroxysmal supraventricular tachycardia (04493405) Paroxysmal supraventricular tachycardia (I47.1) Active confirmed [id number] Problem Hyperlipidemia (76237702) Hyperlipidemia (E78.5) Active confirmed [id number] Problem Paroxysmal ventricular tachycardia (80380127) Paroxysmal ventricular tachycardia (I47.2) Active confirmed [id number] Problem Atherosclerosis of coronary artery (918516663) Atherosclerosis of coronary artery (I25.10) Active confirmed [id number]- Problem Tachycardia (7378135) Tachycardia, unspecified (R00.0) Problem resolved confirmed [id number] Problem Chest pain (25411332) Chest Pain Unspecified (786.50) Problem resolved confirmed [id number]- Plan Of Treatment No Information Insurance Providers Payer Name Payer Address Payer Phone Subscriber Number Group Number Insured Name Patient Relationship to Insured Coverage Start Date Coverage End Date [facility] [address] [place], [place] [id number] Dora Barraza Self - patient is the insured Medical (General) History Medical History History ICD Code kidney stones Rt. Wrist sinus tachycardia chest pain angina (unstable) anxiety CAD GERD hyperlipidemia childhood illnesses of mumps, measles an d chickenpox palpitations hypertension-benign Surgical History Surgery Date(Month/Year) cholecystectomy Successful PTCA of the Prox. LAD IVET red ucing stenosis from 80%-0 08/16/11 Hospitalization History Reason Date(Month/Year) [facility] - angina 05/14/20
--- OUTSIDE RECORDS SUMMARY | 2025-02-25 17:41 | XMS_ITS | Clinical Summary ---
Author Organization [facility] Address [address] [place] [address] Phone Care Team Providers Care Sheriffs Officer Name Role Phone Pcp, Unknown Primary Care [...] file Medical Devices Not on file Insurance [facility] MEDICARE PPO BLUE REPLACEMENT [facility] MEDICARE PPO BLUE [place]AC[place] [address] [address] MEDICARE PPO BLUE REPLACEMENT [place] MEDICARE PPO BLUE REPLACEMENT Care Teams Sheriffs Officer Relationship Specialty Start Date End Date Pcp, Unknown PCP - General 06/22/17 Additional Source Comments The information contained in this document represents components of the legal health record. It is not the complete legal health record.[facility]
--- OUTSIDE RECORDS SUMMARY | 2025-02-25 17:41 | XMS_ITS | Encounter Summary ---
Author Organization [facility] Address [address] [place] [phone] Phone Care Team Providers Care Category Development Manager Name Role Phone Pcp, Unknown Primary Care Provider Unavailabl e Encounter Details Date Type Department Care Team (Late st Contact Info) Description 06/22/2017 Ancillary [facility] [address] [place] [phone] Ramo Salas MD [address] [place] [phone] Palpitation Social History Tobacco Use Types Packs/Day [...] Palpitations documented in this encounter Care Teams Category Development Manager Relationship Specialty Start Date End Date Pcp, Unknown PCP - General 06/22/17 documented as of this encounter Additional Source Comments The information contained in this document represents components of the legal health record. It is not the complete legal health record.[facility]
--- OUTSIDE RECORDS SUMMARY | 2025-02-25 17:41 | XMS_ITS | Patient Health Record ---
Author Organization [facility] Address [address] [place] [address] Care Team Providers Care Vineyardist Name Role Phone JANN, DERREK Primary Care Provider David Medina Jr Unavailable [phone] Allergies Allergen (clinical drug ingredient) Drug/Non Drug [...] W/U Status Risk Notes Problem Epigastric pain (41201397) Epigastric pain (R10.13) Active confirmed Problem Screening for malignant neoplasm of colon (597757854) Encounter for screening for malignant neoplasm of colon (Z12.11) Active confirmed Problem Weight loss (214304677) Weight loss (R63.4) Active confirmed Problem Gastroesophageal reflux disease (753892016) GERD (gastroesophag eal reflux disease) (K21.9) Active confirmed Problem Diarrhea (75808212) Diarrhea, unspecified type (R19.7) Active confirmed Vital Signs Temperature 98.6 degrees Fahrenheit 02/11/2025 Blood pressure diastolic 01 mm Hg 02/11/2025 Height 62.5 in 02/11/2025 Blood pressure systolic 001 mm Hg 02/11/2025 Weight 159.8 lbs 02/11/2025 BMI 28.76 kg/m2 02/11/2025 Encounters Encounter Location Date Provider Diagnosis [facility] [address] [facility] [address] [place] [phone] 02/11/2025 David Agarwal Jr GERD (gastroesophageal reflux [...] Provider Name:David kaplan Jr, 03/10/2025 10:00:00 AM, [address] [place] [address] , [place], [place], [phone], Insurance Providers Payer Name Payer Address Payer Phone Subscriber Number Group Number Insured Name Patient Relationship to Insured Coverage Start Date Coverage End Date [facility] [address] [place], [place] [id number] NEO WANG Self - patient is the insured MEDICAID OF [facility] [address] [place] [address] [id number] NEO WANG Self - patient is the insured Medical (General) History Medical History History ICD Code kidney stones right and left removed -19 80's coronary artery disease and stent placem ent 2013 colonoscopy within 10 years in [place], records to be obtained.02/11/2025 records were never received. Surgical History Surgery Date(Month/Year) Cataract Surgery appendectomy for carcinoid cholecystectomy
[2025-03-06 13:03] VITALS: BMI 28.3
--- NOTE | 2025-03-09 09:42 | HO.ANESPROP2 ---
Documented by User: Nellie Pearson NP 03/09/25 09:56 HPI - Anesthesia Eval Consult details Narrative: 74 yr old female for upper endoscopy, colonosocpy CAD with prior LAD PCI in 2011, SVT: was seen at [facility] 11/09/24 with chest pain, EKG showed NSR, nonspecific ST/T changes, troponins flat x2. Since underwent echo, nuclear stress test; saw cardiology 01/15/25 to review testing, symptoms; still reporting chest pain symptoms lasting a few secs at a time, mostly when lying down or driving, but also has exertional chest discomfort with walking. Coronary CTA was suggested but pt declines for now. 03/04/25 addendum to cardiology note states: pt may proceed with colon/EGD with low/moderate risk. PMFSH Active Problems Active Problems: All Active Problems Vitamin D deficiency (Acute) GERD (gastroesophageal reflux disease) (Acute) Allergic rhinitis (Acute) Left ventricular hypertrophy (Acute) Sinusitis (Acute) Thyroid disorder (Acute) Anxiety (Acute) Intermittent chest pain (Acute) Skin lesions (Acute) Abdominal pain (Acute) Intermittent palpitations (Acute) Establishing care with new doctor, encounter for (Acute) Past Medical History Medical History CAD (coronary artery disease) Vitamin D deficiency GERD (gastroesophageal reflux disease) Allergic rhinitis Left ventricular hypertrophy Sinusitis Thyroid disorder Anxiety Intermittent chest pain Skin lesions Abdominal pain Intermittent palpitations Family History Family History Father BP (high blood pressure) Mother BP (high blood pressure) CHF (congestive heart failure) Surgical History Surgical History Hx of cataract extraction Hx of appendectomy Hx of cholecystectomy Hx of heart artery stent Hx of cystoscopy History of endoscopy (~03/07/17) History of colonoscopy (~12/11/13) Social History Social History Housing: Apartment Alcohol intake: current Alcohol intake frequency: does not drink Patient Tobacco Use Status: Former Tobacco user Use of substances other than those prescribed or required for medical reasons: No Advance Directives: No Advance Directives Information Provided: Yes service: No Current occupational status: unemployed Cognitive needs: No Hearing needs: Yes (b/l hearing aids) Vision needs: Yes (rx glasses) Meds Allergies Allergy/AdvReac Type Severity Reaction Status Date / Time acetaminophen (From PERCOCET) Allergy Intermediate NAUSEA & Verified 03/06/25 13:06 VOMITING, HALLUCINATIONS morphine (MORPHINE) Allergy Intermediate NAUSEA & Verified 03/06/25 13:05 VOMITING nitroglycerin (NITROGLYCERIN) Allergy Intermediate Vomiting Verified 03/06/25 13:06 oxycodone (From PERCOCET) Allergy Intermediate NAUSEA & Verified 03/06/25 13:06 VOMITING, HALLUCINATIONS Sulfa (Sulfonamide Allergy Intermediate RASH Verified 03/06/25 13:05 Antibiotics) (SULFA (SULFONAMIDE ANTIBIOTICS)) Home Medications ?Medication ?Instructions ?Recorded ?Confirmed ?Last Taken ?Type aspirin 81 mg tablet 81 mg PO DAILY 10/16/24 03/06/25 Unknown History buspirone 5 mg tablet 10 mg PO ONCE 10/16/24 03/06/25 Unknown History carvedilol 3.125 mg tablet 3.125 mg PO BID 10/16/24 03/06/25 Unknown History desvenlafaxine succinate 50 mg 50 mg PO DAILY depressive disorder 10/16/24 03/06/25 Unknown History tablet,extended release 24 hr levothyroxine 50 mcg tablet 50 mcg PO DAILY 10/16/24 03/06/25 Unknown History (Synthroid) omeprazole 40 mg capsule,delayed 40 mg PO BID 10/16/24 03/10/25 03/10/25 History release ranolazine 500 mg tablet,extended 500 mg PO BID 10/16/24 03/06/25 Unknown History release,12 hr rosuvastatin 20 mg tablet 20 mg PO DAILY 10/16/24 03/06/25 Unknown History sertraline 100 mg tablet 100 mg PO DAILY 10/16/24 12/24/24 Unknown History amlodipine 2.5 mg tablet 2.5 mg PO DAILY 02/16/25 03/06/25 Unknown History Exam Height,Weight and Vital Signs: Height 5 ft 3 in Weight 72.575 kg Pertinent Lab Results Pertinent Lab Results: Laboratory Tests 02/17/25 08:46 WBC 6.2 RBC 4.34 Hgb 11.8 L Hct 36.9 L Plt Count 191 Sodium 142 Potassium 4.2 Carbon Dioxide 28 BUN 12 Creatinine 0.77 Narrative Narrative: EKG 12/2024 Vent. Rate : 67 BPM Atrial Rate : 67 BPM P-R Int : 140 ms QRS Dur : 80 ms QT Int : 414 ms P-R-T Axes : 9 24 27 degrees QTcB Int : 437 ms Sinus rhythm with Premature supraventricular complexes Nonspecific ST and T wave abnormality Abnormal ECG When compared with ECG of 21-Oct-2024 12:18, Premature supraventricular complexes are now Present ECHO 12/2024 Left ventricle is normal in size and function There is mild concocentric left ventricular hypertrophy. Overall left ventricular systolic function is normal with EF 60-65%. There is normal diastolic dysfunction. No obvious wall motion abnormalities. The right ventricle is normal in size and function. There is no evidence of aortic stenosis or regurg There is no evidence of pulmonary hypertension There is no pericardial effusion Nuclear stress test 12/2024 summarized from cardiology note Exercised 6 min with some abnormal ST/T wave changes during exercise. SPECT MPI was neg for fixed of reversible perfusion defects Documented by User: Phuong Schofield MD 03/10/25 09:07 [facility] Past Medical History Medical History CAD (coronary artery disease) Vitamin D deficiency GERD (gastroesophageal reflux disease) Allergic rhinitis Left ventricular hypertrophy Sinusitis Thyroid disorder Anxiety Intermittent chest pain Skin lesions Abdominal pain Intermittent palpitations Family History Family History Father BP (high blood pressure) Mother BP (high blood pressure) CHF (congestive heart failure) Surgical History Surgical History Hx of cataract extraction Hx of appendectomy Hx of cholecystectomy Hx of heart artery stent Hx of cystoscopy History of endoscopy (~03/07/17) History of colonoscopy (~12/11/13) History of Problems with Anesthesia: No Social History Social History Housing: Apartment Alcohol intake: current Alcohol intake frequency: does not drink Patient Tobacco Use Status: Former Tobacco user Use of substances other than those prescribed or required for medical reasons: No Advance Directives: No Advance Directives Information Provided: Yes service: No Current occupational status: unemployed Cognitive needs: No Hearing needs: Yes (b/l hearing aids) Vision needs: Yes (rx glasses) Meds Allergies Allergy/AdvReac Type Severity Reaction Status Date / Time acetaminophen (From PERCOCET) Allergy Intermediate NAUSEA & Verified 03/06/25 13:06 VOMITING, HALLUCINATIONS morphine (MORPHINE) Allergy Intermediate NAUSEA & Verified 03/06/25 13:05 VOMITING nitroglycerin (NITROGLYCERIN) Allergy Intermediate Vomiting Verified 03/06/25 13:06 oxycodone (From PERCOCET) Allergy Intermediate NAUSEA & Verified 03/06/25 13:06 VOMITING, HALLUCINATIONS Sulfa (Sulfonamide Allergy Intermediate RASH Verified 03/06/25 13:05 Antibiotics) (SULFA (SULFONAMIDE ANTIBIOTICS)) Home Medications ?Medication ?Instructions ?Recorded ?Confirmed ?Last Taken ?Type aspirin 81 mg tablet 81 mg PO DAILY 10/16/24 03/06/25 Unknown History buspirone 5 mg tablet 10 mg PO ONCE 10/16/24 03/06/25 Unknown History carvedilol 3.125 mg tablet 3.125 mg PO BID 10/16/24 03/06/25 Unknown History desvenlafaxine succinate 50 mg 50 mg PO DAILY depressive disorder 10/16/24 03/06/25 Unknown History tablet,extended release 24 hr levothyroxine 50 mcg tablet 50 mcg PO DAILY 10/16/24 03/06/25 Unknown History (Synthroid) omeprazole 40 mg capsule,delayed 40 mg PO BID 10/16/24 03/10/25 03/10/25 History release ranolazine 500 mg tablet,extended 500 mg PO BID 10/16/24 03/06/25 Unknown History release,12 hr rosuvastatin 20 mg tablet 20 mg PO DAILY 10/16/24 03/06/25 Unknown History sertraline 100 mg tablet 100 mg PO DAILY 10/16/24 12/24/24 Unknown History amlodipine 2.5 mg tablet 2.5 mg PO DAILY 02/16/25 03/06/25 Unknown History Exam Airway Mallampati Class: II TM Dist: >3cm Neck ROM: Full Loose/Missing/Broken Teeth: No Heart: RRR Lungs: CTA Assessment and Plan Assessment Anesthesia Assessment: Anesthesia Plan Discussed and Chart Reviewed Final Anesthetic Review History of Problems with Anesthesia: No NPO: Yes ASA Class: III Final Preanesthetic Review: Meds/Allgs Chart Reviewed, Consent Obtained/Reviewed and Anes Risks/Benef Reviewed Patient Risk: Intermediate Procedure Risk: Intermediate Anesthetic Plan Anesthetic Plan: MAC: Disposition: Standard PACU
[2025-03-10 08:05] VITALS: BMI 27.6
[2025-03-10] MEDS: Lactated Ringers 1,000 ML 100 ML IVCONT (08:31)
[2025-03-10 08:33] VITALS: BP 123/49; PULSE 70; RESP 16; TEMP 36.2; O2SAT 97
--- NOTE | 2025-03-10 09:08 | MHC.SHP ---
Pre-Procedural Eval Section A - 24 Hr Update-Section A only Date of Service: 03/10/25 The patient is an INPATIENT: No Changes since office visit: No Cold of Flu in the past 2 weeks, No New Medical Problems, No Changes in Medication and No Patient answered all questions The patient has been examined within 24 hours of the surgical procedure. The History & Physical has been completed within 30 days and I have reviewed it.: Yes Section B - Complete if H&P > 30 days Chief Complaint: gerd,screening Allergies: Allergies Allergy/AdvReac Type Severity Reaction Status Date / Time acetaminophen (From PERCOCET) Allergy Intermediate NAUSEA & Verified 03/06/25 13:06 VOMITING, HALLUCINATIONS morphine (MORPHINE) Allergy Intermediate NAUSEA & Verified 03/06/25 13:05 VOMITING nitroglycerin (NITROGLYCERIN) Allergy Intermediate Vomiting Verified 03/06/25 13:06 oxycodone (From PERCOCET) Allergy Intermediate NAUSEA & Verified 03/06/25 13:06 VOMITING, HALLUCINATIONS Sulfa (Sulfonamide Allergy Intermediate RASH Verified 03/06/25 13:05 Antibiotics) (SULFA (SULFONAMIDE ANTIBIOTICS)) Plan I have reviewed the history and physical and performed a pertinent physical examination on my patient. No changes have occurred unless specified. Time Spent With Patient Time: Total time managing care of this patient today ____ minutes.
[2025-03-10 10:04] VITALS: BP 97/36; PULSE 61; RESP 18; TEMP 36.1; O2SAT 99
[2025-03-10 10:19] VITALS: BP 96/38; PULSE 63; RESP 18; TEMP 36.3; O2SAT 99
--- NOTE | 2025-03-10 10:57 | OP_ITS ---
DATE OF SERVICE: 03/10/2025 SURGEON: David Agarwal MD INDICATIONS: 1. Gastroesophageal reflux disease. 2. Colon cancer screening. PREOPERATIVE DIAGNOSIS: POSTOPERATIVE DIAGNOSIS: PROCEDURE PERFORMED: Upper endoscopy with biopsy, colonoscopy to the terminal ileum with biopsy. ESTIMATED BLOOD LOSS: COMPLICATIONS: ANESTHESIA: Monitored anesthesia care. ASSISTANTS: SPECIMENS: DESCRIPTION OF PROCEDURE: A history and physical was performed. The risks and benefits of the procedure were explained to the patient, and informed consent was obtained. The patient was placed in a left lateral decubitus position. The Olympus video gastroscope was introduced into the esophagus, stomach, and duodenum. Examination was performed. The scope was removed she was repositioned for colonoscopy. A digital rectal exam was performed and was found to be normal. The Olympus pediatric video colonoscope was introduced into the rectum and advanced to the cecum. The cecum was identified by transillumination, palpation, and identification of ileocecal valve. Examination was performed. The scope was removed. She tolerated both procedures well and was returned to the recovery area in stable condition. FINDINGS: Upper endoscopy: 1. Esophagus: The esophagus showed an irregular EG junction. This was biopsied. 2. Stomach: The stomach was normal. Antral biopsies were obtained. 3. Duodenum: The bulb and 2nd portion were normal. Biopsies were obtained. Colonoscopy: The terminal ileum was normal. The visualized colonic mucosa was normal. The quality of the prep was good. In the right colon was a less than 5 mm sessile polyp, which was removed with a biopsy forceps. No other polyps were identified. Retroflexed examination showed small internal hemorrhoids. IMPRESSION: 1. Normal upper endoscopy. 2. Colon polyp. RECOMMENDATION: Follow up the biopsy results. MD KEVIN Dietz/SIXTO / [id number]
== END 2025-03-10 10:37 | disposition home or self-care (01) ==
PROVIDERS: PCP Internal Medicine; Visit Provider Internal Medicine Gastroenterology
PROC: (CPT 43239; principal; 2025-03-10 09:10)
DX: Z12.11 Encounter for screening for malignant neoplasm of colon (principal); K21.9 Gastro-esophageal reflux disease without esophagitis; K64.8 Other hemorrhoids; D12.2 Benign neoplasm of ascending colon
CPT/HCPCS: 43239; 45380; 88305; 88313; 88342; J2003; J2405; J2704